=== PATIENT | male | born 1950 | race Caucasian/White ===

== ENCOUNTER 2017-01-20 04:06 | Emergency (ER) | payer MEDICARE, BC ==
[2017-01-20 04:30] VITALS: BP 138/53
--- NOTE | 2017-01-20 07:43 | CR ---
DATE OF SERVICE: 01/20/17 CLINICAL DATA: SOB - GERD SYMPTOMS. AP PORTABLE CHEST: Comparison is made to a prior exam dated 11/03/15. The patient is status post median sternotomy. The heart size is within normal limits. It has mildly increased in size from the prior exam. There is pleural thickening in both hemithoraces. There are minimal atelectatic changes in both lower lungs. The lungs are otherwise clear. The pulmonary vasculature does appear slightly more prominent than on the prior exam suggesting mild pulmonary venous congestion. The exam is otherwise unchanged from the prior. [id number] [facility]
--- NOTE | 2017-01-21 00:04 | ER ---
HISTORY OF PRESENT ILLNESS: A 66-year-old male here with complaints of not feeling well. He has had a funny feeling in his chest. He states he just does not feel right. He denies it feeling like chest pain or pressure. He states it maybe somewhat like heartburn. The patient also noticed a bruise on the inside of his left upper arm during the day that he did not remember being caused by any form of injury. The patient states that he was told he needs to come in for evaluation because his blood pressure was elevated. He has a history of coronary artery disease. He has had a CABG in 2009. He feels short of breath some what on a daily basis and uses an albuterol inhaler for this. OBJECTIVE: GENERAL APPEARANCE: The patient is awake and alert and in no obvious distress. VITAL SIGNS: Reviewed. At this time, they are all normal. Blood pressure 138/53. HEENT: Ears, TMs are normal. Nares are patent. Oral mucous membranes are moist. Tonsils not enlarged or injected. Pharynx not inflamed. NECK: Supple. LUNGS: Clear. CARDIAC: Heart sounds distinct. No murmurs noted. Regular rate. ABDOMEN: Soft, protuberant, and nontender to palpation. Bowel sounds are present. LAB AND X-RAY: Chest x-ray shows mild increase in interstitial markings suggesting mild CHF. Lab work done included a CBC and CMP, these were unremarkable. Troponin is normal. PT and INR are also normal. DIAGNOSES: 1. Hypertension, currently well controlled. 2. Shortness of breath with some concern of mild CHF. TREATMENT PLAN: The patient is on Aldactone, we will increase this to 25 mg a day. The patient is to take his other medications as directed, and I want the patient to follow up next week with his primary care provider for a recheck. Follow up sooner of course hermelinda ALANIZ/MAREN /[id number]
== END 2017-01-20 06:07 | disposition home or self-care (01) ==
LOC: LB.ED 04:06
DX: I10 Essential (primary) hypertension (principal); R06.02 Shortness of breath; S40.022A Contusion of left upper arm, initial encounter; Z95.1 Presence of aortocoronary bypass graft; X58.XXXA Exposure to other specified factors, initial encounter
CPT/HCPCS: 36415; 71010; 80053; 84484; 85025; 85610; 93005; 99283; 99284-25

== ENCOUNTER 2018-02-09 09:09 | Day surgery (SDC) | payer MEDICARE, BC ==
[~2018-02-09 09:09] MED LIST: Metoclopramide 10 MG/2 ML SDV IV PRN; Sodium Chloride 0.9% 1,000 ML IV SCH; Sodium Chloride 0.9% 10 ML Syringe FLUSH PRN
[2018-02-09 13:54] VITALS: BP 142/65
--- NOTE | 2018-02-09 18:21 | OR ---
DATE OF OPERATION: 02/09/2018 PREOPERATIVE DIAGNOSIS: Positive FIT test. POSTOPERATIVE DIAGNOSIS: 1. Sigmoid polyp. 2. Rectosigmoid polyp. 3. Otherwise normal colonoscopy. OPERATION: Screening colonoscopy with a biopsy with cold biopsy polypectomy. COMPLICATIONS: None. DRAINS: None. SPECIMENS: 1. Sigmoid polyp. 2. Rectosigmoid polyp. ESTIMATED BLOOD LOSS: Minimal. ANESTHESIA: General propofol anesthesia. INDICATION: Mr. Keita is a 68-year-old gentleman who recently had a positive FIT test. He was then referred for screening colonoscopy. He is of average risk and has no gross symptoms. The above-mentioned procedure was explained. The risks, benefits, and complications were explained. The patient understood and agreed and he was brought to the operating room. DESCRIPTION OF PROCEDURE: The patient was brought to the operating room, placed in the left lateral decubitus position on the operating room table. Satisfactory general propofol anesthesia was administered. We began by performing a rectal examination which was within normal limits. I then placed the endoscope by finger introduction into the rectum and subsequently advanced to the level of the cecum. The cecum was identified by the appendiceal orifice, the cecal strap, and the ileocecal valve. The terminal ileum was intubated and this was normal. We then evaluated the mucosa on withdrawal. There were no significant abnormalities identified. No telangiectasias, no neoplastic growths, and no diverticula were identified. There was a small sessile less than 0.5 cm or less than 5 mm polyp in the sigmoid, which was easily resected by cold biopsy polypectomy completely and retrieved. There was also a small rectosigmoid polyp. Again, this was less than 5 mm and removed by cold biopsy polypectomy and retrieved completely. The remainder of the colon was within normal limits. Retroflexion was performed in the rectum which was within normal limits. We then decompressed the colon and subsequently removed the endoscope. The patient tolerated the procedure well. There were no complications. Instrument count was correct. The patient was awoken in the OR and taken to the PACU for recovery. Recommend followup colonoscopy depending on path results. REFUGIO /[id number]
== END 2018-02-09 12:05 | disposition home or self-care (01) ==
LOC: LB.SDS 09:09
PROVIDERS: ATTEND Surgery
DX: K63.5 Polyp of colon (principal); J44.9 Chronic obstructive pulmonary disease, unspecified; M19.90 Unspecified osteoarthritis, unspecified site; I25.10 Atherosclerotic heart disease of native coronary artery without angina pectoris; Z79.899 Other long term (current) drug therapy
CPT/HCPCS: 88305

== ENCOUNTER 2018-04-03 02:04 | Emergency (ER) | payer MEDICARE, BC ==
[2018-04-03] MEDS: Ketorolac 60 MG/2 ML SDV IM ONE (02:40)
--- NOTE | 2018-04-03 04:28 | ER ---
DATE OF SERVICE: 04/03/2018 HISTORY OF PRESENT ILLNESS: A 68-year-old male here with complaints of falling at work. 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 He tripped and fell landing on the left side of the chest wall. He had a phone attached to his shirt over the breast area and this is the area that he fell on. He states that he is having pain on the left chest wall basically behind the breast. The patient denies any shortness of breath. He states it hurts when he tries to take a deep breath. He denies any other injuries. OBJECTIVE: GENERAL APPEARANCE: The patient is awake and alert. No obvious distress at rest. VITAL SIGNS: Reviewed as listed. CHEST: Examining the anterior chest wall reveals a well-healed midline incision over the sternum from a previous CABG surgery 9 or 10 years ago. There is no bruising involving the left breast area. There is some discomfort with palpation below and underneath the breast, but there is minimal guarding. The patient is able to take about 50% of a deep breath before he notices pain. Lung sounds are present throughout the lung lux. LAB AND X-RAY: PA chest with left rib films were obtained. There appeared to be a slight abnormality involving one of the lower ribs along the sternal border, but the patient is not having pain in this area with palpation. I do not see any other obvious fractures. DIAGNOSIS: Contusion injury to chest wall. This is a work comp injury. TREATMENT PLAN: The patient was given Toradol 60 mg here in the emergency room. He is to use ibuprofen alternating with Tylenol for pain control. He states that he has oxycodone that he takes occasionally for arthritic pain; I advised the patient to use those very cautiously. He is to apply ice frequently for the next day or two. As far as work, it would be very light duty as tolerated. The patient is going to see if he can get some time off work. I advised the patient to talk to his supervisor sterile processing about this. Followup is otherwise p.r.n. KATTY/MAREN /[id number] STEPHY
--- NOTE | 2018-04-03 11:10 | CR ---
DATE OF SERVICE: 04/03/18 CLINICAL DATA: fall with chest wall pain PA CHEST AND LEFT RIBS: All the views are under-penetrated, most likely related to the patient's size. The patient is status post median sternotomy. The heart is enlarged. There is pleural thickening in both hemithoraces. The lungs are otherwise clear. No pneumothorax. No displaced rib fractures. [id number] [facility]
== END 2018-04-03 03:25 | disposition home or self-care (01) ==
LOC: LB.ED 02:04
DX: S20.212A Contusion of left front wall of thorax, initial encounter (principal); W01.0XXA Fall on same level from slipping, tripping and stumbling without subsequent striking against object, initial encounter; Y99.0 Civilian activity done for income or pay
CPT/HCPCS: 71101; 96372; 99284; J1885; 99283

== ENCOUNTER 2019-08-04 15:26 | Observation (INO) | payer MEDICARE ==
--- NOTE | 2019-08-04 16:23 | EDM.PDOC ---
ED HPI GENERAL MEDICAL PROBLEM - General Chief Complaint: General Stated Complaint: diarrhea, weakness Time Seen by Provider: 08/04/19 15:50 Source of Information: Reports: Patient, Family History Limitations: Reports: No Limitations - History of Present Illness INITIAL COMMENTS - FREE TEXT/NARRATIVE: According to patient he has been having diarrhea since yesterday . stool have been frequent and watery. No blood or mucus in the stool. Bowel movements are asso with cramping. Has had 4 episodes today. Also since today afternoon, he has been having fever with chills. No nausea or vomiting. According to spouse, they had home made steak and corn on Monday evening. No abdominal bloating. No chest pain or shortness of breath. Does have mid back pain, which is chronic. Onset Date: 08/03/19 Onset Time: 12:00 Quality: Reports: Ache Severity: Moderate Improves with: Reports: None Worsens with: Reports: None Associated Symptoms: Reports: Cough, Fever/Chills, Nausea/Vomiting, Weakness. Denies: Confusion, Chest Pain, Headaches, Rash, Seizure, Shortness of Breath, Syncope Treatments JUNIOR COPYWRITER: Reports: NSAIDS, Other (see below) Other Treatments JUNIOR COPYWRITER: aleve 3 tabs at 1200 Lower Back Pain Score (Numeric/FACES): 5 - Related Data Allergies Allergy/AdvReac Type Severity Reaction Status Date / Time No Known Allergies Allergy Verified 04/03/18 02:42 Home Meds: Home Meds Sildenafil Citrate [Viagra] 1 tab PO ASDIRECTED PRN 07/09/15 [History] atorvaSTATin [Lipitor] 80 mg PO BEDTIME tablet 09/30/15 [Rx] Aspirin [Ecotrin EC] 81 mg PO QPM 01/20/17 [History] Carvedilol 12.5 mg PO BID 01/20/17 [History] Losartan Potassium 12.5 mg PO DAILY 01/20/17 [History] Spironolactone [Aldactone] 12.5 mg PO DAILY 01/20/17 [History] traZODone 150 mg PO QPM 01/20/17 [History] Albuterol [Ventolin HFA] 1 puff INH Q4H PRN 02/09/18 [History] Magnesium 250 mg PO DAILY 02/09/18 [History] Multivit-Minerals/FA/Lycopene [Men's Daily Formula Tablet] 1 tab PO DAILY [History] Omeprazole [priLOSEC OTC] 20 mg PO DAILY 02/09/18 [History] Potassium 99 mg PO DAILY 02/09/18 [History] diphenhydrAMINE HCl [Diphenhydramine HCl] 100 mg PO BEDTIME 02/09/18 [History] Acetaminophen [Tylenol Arthritis] 650 mg PO BID 08/04/19 [History] Fluticasone/Umeclidin/Vilanter [Trelegy Ellipta 100-62.5-25] 1 each INH DAILY [History] metFORMIN [Glucophage] 500 mg PO DAILY 08/04/19 [History] oxyCODONE [Oxycodone HCl] 10 mg PO Q8HR 08/04/19 [History] Past Medical History HEENT History: Reports: Hard of Hearing Cardiovascular History: Reports: Bypass, High Cholesterol, Hypertension, SOB on Exertion Respiratory History: Reports: Asthma, COPD, Pneumonia, Recurrent, SOB Gastrointestinal History: Reports: GERD Genitourinary History: Reports: Renal Calculus, Renal Disease Musculoskeletal History: Reports: Back Pain, Chronic, Fracture, Osteoarthritis Other Musculoskeletal History: R Leg pain, 2 broken wrists Neurological History: Reports: Other (See Below) Other Neuro History: numb in R forearm into 3-4-5 fingers since back jun Psychiatric History: Reports: None Endocrine/Metabolic History: Reports: None, Diabetes, Type II, Other (See Below) Other Endocrine/Metabolic History: pre-diabetic Hematologic History: Reports: None Immunologic History: Reports: None Oncologic (Cancer) History: Reports: None Dermatologic History: Reports: Cellulitis - Infectious Disease History Infectious Disease History: Reports: Chicken Pox - Past Surgical History Cardiovascular Surgical History: Reports: Coronary Artery Bypass, Coronary Artery Stent GI Surgical History: Reports: Colonoscopy Other GI Surgeries/Procedures: Reason for colonoscopy:Blood in stool-02/09/18 Other Endocrine Surgeries/Procedures: patient feels possibly a mild form of Diabetes type 2 Neurological Surgical History: Reports: Lumbar Spine, Spinal Fusion Social & Family History - Family History Family Medical History: Noncontributory Endocrine/Metabolic: Reports: IDDM Oncologic: Reports: Breast - Caffeine Use Caffeine Use: Reports: Coffee - Living Situation & Occupation Living situation: Reports: Occupation: Employed ED ROS GENERAL - Review of Systems Review Of Systems: See Below Constitutional: Reports: Fever, Chills, Weakness HEENT: Denies: Rhinitis, Throat Pain Respiratory: Reports: Cough. Denies: Shortness of Breath, Wheezing, Pleuritic Chest Pain, Sputum Cardiovascular: Denies: Chest Pain, Lightheadedness GI/Abdominal: Reports: Abdominal Pain, Diarrhea, Flatus, Nausea, Vomiting. Denies: Constipation : Denies: Dysuria, Frequency Musculoskeletal: Denies: Joint Pain, Joint Swelling Skin: Denies: Bruising, Pruritis, Rash, Wound Neurological: Denies: Confusion, Dizziness, Headache, Numbness, Tingling ED EXAM, GENERAL - Physical Exam Exam: See Below Exam Limited By: No Limitations General Appearance: Alert, WD/WN, Mild Distress, Other (pt apprently is vomiting bilous copious vomitus, first episode) Eye Exam: Bilateral Eye: EOMI, PERRL Ears: Normal External Exam, Normal Canal, Hearing Grossly Normal, Normal TMs Ear Exam: Bilateral Ear: Auricle Normal, Canal Normal, TM normal Nose: Normal Inspection, Normal Mucosa, No Blood Throat/Mouth: Normal Inspection, Normal Lips, Normal Teeth, Normal Gums, Normal Oropharynx, Normal Voice, No Airway Compromise Head: Atraumatic, Normocephalic Neck: Normal Inspection, Supple, Non-Tender, Full Range of Motion Respiratory/Chest: No Respiratory Distress, Lungs Clear, Normal Breath Sounds, No Accessory Muscle Use, Chest Non-Tender Cardiovascular: Normal Peripheral Pulses, Tachycardia Peripheral Pulses: 2+: Carotid (L), Carotid (R), Brachial (L), Brachial (R) GI/Abdominal: Soft, No Organomegaly, No Abnormal Bruit, No Mass, Distended, Abnormal Bowel Sounds (hypoactive bowel sounds) Back Exam: Normal Inspection, Full Range of Motion Extremities: Normal Inspection, Normal Range of Motion, Non-Tender, Normal Capillary Refill, No Pedal Edema Neurological: Alert, Oriented, CN II-XII Intact, Normal Cognition, Normal Gait, Normal Reflexes, No Motor/Sensory Deficits Course - Vital Signs Text/Narrative:: 79 year old male with COPD and Diabetes, presents to emergency room with C/o diarrhea since yesterday.He has started to have low grade fever since today afternoon. Apparently he has his first episode of bilious vomitus in the emergency room. Last time he has eaten anything was yesterday afternoon. He has hypoactive bowel sounds presently. He might be developing paralytic ileus. LAb work ordered. CT abdomen and pelvis ordered. Also EKG and Chest Xray ordered as he has History of CAD and COPD. Pt's CBC shows white count oa 14.9. His CMP shows normal liver functions. Normal electrolytes.Potassium is 3.9 Creat is normal at 1.3 and Bun of 15. His GFR is 55. His lipase is negative.His EKG shows sinus tachycardia. Chest Xray appears normal. His Abdominal Xray upright shows decreased air pattern.. His whit4 count is up appears more like a inflammatory reaction. Also his lactic acid is mildly elevated. This could be lactic acidosis mild from hsi metformin, with early dehydration. Hydration should improve both these values. Pt and family reassured that he has acute gastroenteritis with normal renal and liver functions. He is just getting into dehydration, with possible early paralytic ileus, which is the cause of his bilious vomitus. Pt has received zofran 4mg IV. Plan is to admit patient for observation. Have him started on 500cc/hr bolus time 2 of NS, will be followed by NS with 20meqKCL at 125cc/hr. Zofran 4mg IV every 8 hrs as needed for nausea. Will keep him only on few ice chips orally. CBC and BMP in Am. Replenishment of potassium should improve his symptoms. Last Recorded V/S: Last Vital Signs Temp 100.7 F H 08/04/19 15:55 Pulse 126 H 08/04/19 15:55 Resp 24 H 08/04/19 15:55 BP 151/85 H 08/04/19 15:55 Pulse Ox 86 L 08/04/19 15:55 - Orders/Labs/Meds Orders: Active Orders 24 hr Category Date Time Status EKG Documentation Completion [RC] ASDIRECTED Care 08/04/19 16:22 Active Abdomen 1V Upright [CR] Stat Exams 08/04/19 16:47 Ordered Abdomen Pelvis wo Cont [CT] Stat Exams 08/04/19 16:17 Stop Req Chest 1V Frontal [CR] Stat Exams 08/04/19 16:25 Ordered Sodium Chloride 0.9% [Normal Saline] 500 ml Med 08/04/19 16:29 Active IV .BOLUS Sodium Chloride 0.9% [Saline Flush] Med 08/04/19 16:28 Active 10 ml FLUSH ASDIRECTED PRN Peripheral IV Insertion Adult [OM.PC] Routine Oth 08/04/19 16:28 Ordered Medication Orders Sodium Chloride (Normal Saline) 500 mls @ 500 mls/hr IV .BOLUS ONE Stop: 08/04/19 17:28 Sodium Chloride (Saline Flush) 10 ml FLUSH ASDIRECTED PRN PRN Reason: Keep Vein Open Labs: Laboratory Tests 08/04/19 08/04/19 08/04/19 Range/Units 16:10 16:10 16:10 WBC 14.9 H D (4.0-11.0) K/uL RBC 4.91 (4.50-6.50) M/uL Hgb 14.7 (13.0-18.0) g/dL Hct 44.1 (40.0-54.0) % MCV 90 (76-96) fL MCH 29.9 (27.0-32.0) pg MCHC 33.3 (31.0-35.0) g/dL RDW 14.1 (11.0-16.0) % Plt Count 161 (150-400) K/uL MPV 9.5 (6.0-10.0) fL Neut % (Auto) 93.0 H (45.0-70.0) % Lymph % (Auto) 3.6 L (20.0-40.0) % Weston % (Auto) 2.7 L (3.0-10.0) % Eos % (Auto) 0.6 L (1.0-5.0) % Baso % (Auto) 0.1 (0.0-0.5) % Neut # (Auto) 13.87 H (2.00-7.50) K/uL Lymph # (Auto) 0.54 L (1.50-4.00) K/uL Weston # (Auto) 0.41 (0.20-0.80) K/uL Eos # (Auto) 0.09 (0.04-0.40) K/uL Baso # (Auto) 0.02 (0.02-0.10) K/uL Sodium 141 (136-145) mmol/L Potassium 3.9 (3.5-5.1) mmol/L Chloride 106 (98-107) mmol/L Carbon Dioxide 23.7 (21.0-32.0) mmol/L Anion Gap 15.2 H (5.0-15.0) mmol/L BUN 15 D (8-26) mg/dL Creatinine 1.30 (0.70-1.30) mg/dL Est Cr Clr Drug Dosing 54.59 mL/min Estimated GFR (MDRD) 55 L (>60) MLS/MIN BUN/Creatinine Ratio 11.5 (6-25) Glucose 280 H D (74-100) mg/dL Lactic Acid (0.90-1.70) mmol/L Calcium 8.4 L (8.5-10.1) mg/dL Total Bilirubin 0.8 D (0.0-1.0) mg/dL AST 20 (15-37) U/L ALT 25 (12-78) U/L Alkaline Phosphatase 73 (46-116) U/L Total Protein 6.5 (6.4-8.2) g/dL Albumin 3.3 L (3.4-5.0) g/dL Globulin 3.2 (2.2-4.2) g/dL Albumin/Globulin Ratio 1.0 (0.8-2.0) Lipase 201 (73-393) U/L // Range/Units 16:10 WBC (4.0-11.0) K/uL RBC (4.50-6.50) M/uL Hgb (13.0-18.0) g/dL Hct (40.0-54.0) % MCV (76-96) fL MCH (27.0-32.0) pg MCHC (31.0-35.0) g/dL RDW (11.0-16.0) % Plt Count (150-400) K/uL MPV (6.0-10.0) fL Neut % (Auto) (45.0-70.0) % Lymph % (Auto) (20.0-40.0) % Weston % (Auto) (3.0-10.0) % Eos % (Auto) (1.0-5.0) % Baso % (Auto) (0.0-0.5) % Neut # (Auto) (2.00-7.50) K/uL Lymph # (Auto) (1.50-4.00) K/uL Weston # (Auto) (0.20-0.80) K/uL Eos # (Auto) (0.04-0.40) K/uL Baso # (Auto) (0.02-0.10) K/uL Sodium (136-145) mmol/L Potassium (3.5-5.1) mmol/L Chloride (98-107) mmol/L Carbon Dioxide (21.0-32.0) mmol/L Anion Gap (5.0-15.0) mmol/L BUN (8-26) mg/dL Creatinine (0.70-1.30) mg/dL Est Cr Clr Drug Dosing mL/min Estimated GFR (MDRD) (>60) MLS/MIN BUN/Creatinine Ratio (6-25) Glucose (74-100) mg/dL Lactic Acid 2.22 H (0.90-1.70) mmol/L Calcium (8.5-10.1) mg/dL Total Bilirubin (0.0-1.0) mg/dL AST (15-37) U/L ALT (12-78) U/L Alkaline Phosphatase (46-116) U/L Total Protein (6.4-8.2) g/dL Albumin (3.4-5.0) g/dL Globulin (2.2-4.2) g/dL Albumin/Globulin Ratio (0.8-2.0) Lipase (73-393) U/L Meds: Medications Generic Name Dose Route Start Last Admin Trade Name Freq PRN Reason Stop Dose Admin Sodium Chloride 500 mls @ 500 mls/hr 08/04/19 16:29 Normal Saline IV 08/04/19 17:28 .BOLUS ONE Sodium Chloride 10 ml 08/04/19 16:28 Saline Flush FLUSH ASDIRECTED PRN Keep Vein Open Discontinued Medications Generic Name Dose Route Start Last Admin Trade Name Freq PRN Reason Stop Dose Admin Ondansetron HCl 4 mg 08/04/19 16:28 Zofran IVPUSH 08/04/19 16:29 ONETIME ONE Departure - Departure Time of Disposition: 17:00 Disposition: Refer to Observation Condition: Fair Clinical Impression: Acute gastroenteritis - Discharge Information *PRESCRIPTION DRUG MONITORING PROGRAM REVIEWED*: Not Applicable *COPY OF PRESCRIPTION DRUG MONITORING REPORT IN PATIENT ASIYA: Not Applicable Forms: ED Department Discharge - Problem List & Annotations (1) Acute gastroenteritis SNOMED Code(s): 32773536 Code(s): K52.9 - NONINFECTIVE GASTROENTERITIS AND COLITIS, UNSPECIFIED Status: Acute - Problem List Review Problem List Initiated/Reviewed/Updated: Yes - My Orders Last 24 Hours: My Active Orders 08/04/19 16:17 Abdomen Pelvis wo Cont [CT] Stat 08/04/19 16:22 EKG Documentation Completion [RC] ASDIRECTED 08/04/19 16:25 Chest 1V Frontal [CR] Stat 08/04/19 16:28 Sodium Chloride 0.9% [Saline Flush] 10 ml FLUSH ASDIRECTED PRN Peripheral IV Insertion Adult [OM.PC] Routine 08/04/19 16:29 Sodium Chloride 0.9% [Normal Saline] 500 ml IV .BOLUS 08/04/19 16:47 Abdomen 1V Upright [CR] Stat - Assessment/Plan Admission H&P: Please use this note as an admission H&P Last 24 Hours: My Active Orders 08/04/19 16:17 Abdomen Pelvis wo Cont [CT] Stat 08/04/19 16:22 EKG Documentation Completion [RC] ASDIRECTED 08/04/19 16:25 Chest 1V Frontal [CR] Stat 08/04/19 16:28 Sodium Chloride 0.9% [Saline Flush] 10 ml FLUSH ASDIRECTED PRN Peripheral IV Insertion Adult [OM.PC] Routine 08/04/19 16:29 Sodium Chloride 0.9% [Normal Saline] 500 ml IV .BOLUS 08/04/19 16:47 Abdomen 1V Upright [CR] Stat Assessment:: Acute gastroenteritis Plan: 79 year old male with COPD and Diabetes, presents to emergency room with C/o diarrhea since yesterday.He has started to have low grade fever since today afternoon. Apparently he has his first episode of bilious vomitus in the emergency room. Last time he has eaten anything was yesterday afternoon. He has hypoactive bowel sounds presently. He might be developing paralytic ileus. LAb work ordered. CT abdomen and pelvis ordered. Also EKG and Chest Xray ordered as he has History of CAD and COPD. Pt's CBC shows white count oa 14.9. His CMP shows normal liver functions. Normal electrolytes.Potassium is 3.9 Creat is normal at 1.3 and Bun of 15. His GFR is 55. His lipase is negative.His EKG shows sinus tachycardia. Chest Xray appears normal. His Abdominal Xray upright shows decreased air pattern.. His whit4 count is up appears more like a inflammatory reaction. Also his lactic acid is mildly elevated. This could be lactic acidosis mild from hsi metformin, with early dehydration. Hydration should improve both these values. Pt and family reassured that he has acute gastroenteritis with normal renal and liver functions. He is just getting into dehydration, with possible early paralytic ileus, which is the cause of his bilious vomitus. Pt has received zofran 4mg IV. Plan is to admit patient for observation. Have him started on 500cc/hr bolus time 2 of NS, will be followed by NS with 20meqKCL at 125cc/hr. Zofran 4mg IV every 8 hrs as needed for nausea. Will keep him only on few ice chips orally. CBC and BMP in Am. Replenishment of potassium should improve his symptoms.
[2019-08-04] MEDS ORDERED: Sodium Chloride 0.9% 10 ML Syringe FLUSH PRN (16:28)
[2019-08-04] MEDS ORDERED: Ondansetron 4 MG/2 ML SDV IVPUSH ONE (16:28)
[2019-08-04] MEDS ORDERED: Sodium Chloride 0.9% 500 ML IV ONE (16:29)
[2019-08-04] MEDS: Ondansetron 4 MG/2 ML SDV IVPUSH SCH (16:45)
[2019-08-04] MEDS ORDERED: NS + KCl 20mEq/L 1,000 ML IV SCH (17:15)
--- NOTE | 2019-08-04 19:16 | CR ---
DATE OF SERVICE: 08/04/2019 CLINICAL DATA: Cough chronic. AP CHEST: Comparison is made to a prior exam dated 01/30/2019. There is breathing motion artifact. The patient has taken a very poor inspiration. The cardiac pacer and pacer wires remain unchanged in position. The patient is status post median sternotomy. The heart is enlarged. There is pleural thickening in both hemithoraces. The lungs appear clear. No pneumothorax. No pleural effusions. [id number] MTDD
--- NOTE | 2019-08-04 19:22 | CR ---
DATE OF SERVICE: 08/04/2019 CLINICAL DATA: R/O paralytic ileus. UPRIGHT ABDOMEN: No evidence of obstruction or ileus. No free air. The patient is status post internal fixation of L5 and S1. [id number] MTDD
[2019-08-04] MEDS ORDERED: Ketorolac 30 MG/ML SDV IVPUSH ONE (19:26)
[2019-08-04] MEDS ORDERED: diphenhydrAMINE 50 MG/ML SDV IVPUSH ONE (23:23)
[2019-08-05] MEDS: Ondansetron 4 MG/2 ML SDV IVPUSH SCH ×3 (06:42→21:46)
[2019-08-05] MEDS: Sodium Chloride 0.9% 1,000 ML IV SCH ×2 (08:35→19:09)
[2019-08-05] MEDS ORDERED: [UNRECOGNIZED DRUG - OTHER] PO PRN (09:05)
--- NOTE | 2019-08-05 14:09 | PCM.PN ---
- General Info Date of Service: 08/05/19 Subjective Update: This is a 69yo M with continued headache that started last night. He feels very thirsty still. He denies any pain other than his headache. He does feel tired and weak. No fever or chills, no chest pain or shortness of breath. - Review of Systems General: Reports: Weakness HEENT: Reports: No Symptoms Pulmonary: Reports: No Symptoms Cardiovascular: Reports: No Symptoms Gastrointestinal: Reports: Decreased Appetite, Diarrhea Genitourinary: Reports: No Symptoms Musculoskeletal: Reports: No Symptoms Skin: Reports: No Symptoms Neurological: Reports: Weakness - Patient Data Vitals - Most Recent: Last Vital Signs Temp 37.5 C 08/05/19 08:00 Pulse 79 08/05/19 08:00 Resp 18 08/05/19 05:00 BP 119/55 L 08/05/19 08:00 Pulse Ox 98 08/05/19 08:00 Weight - Most Recent: 262.4 kg I&O - Last 24 Hours: Intake & Output 08/04/19 08/05/19 08/05/19 22:59 06:59 14:59 Intake Total 1000 Output Total 50 Balance 950 Lab Results Last 24 Hours: Laboratory Results - last 24 hr 08/04/19 08/04/19 08/04/19 Range/Units 16:10 16:10 16:10 WBC 14.9 H D (4.0-11.0) K/uL RBC 4.91 (4.50-6.50) M/uL Hgb 14.7 (13.0-18.0) g/dL Hct 44.1 (40.0-54.0) % MCV 90 (76-96) fL MCH 29.9 (27.0-32.0) pg MCHC 33.3 (31.0-35.0) g/dL RDW 14.1 (11.0-16.0) % Plt Count 161 (150-400) K/uL MPV 9.5 (6.0-10.0) fL Neut % (Auto) 93.0 H (45.0-70.0) % Lymph % (Auto) 3.6 L (20.0-40.0) % [place] % (Auto) 2.7 L (3.0-10.0) % Eos % (Auto) 0.6 L (1.0-5.0) % Baso % (Auto) 0.1 (0.0-0.5) % Neut # (Auto) 13.87 H (2.00-7.50) K/uL Lymph # (Auto) 0.54 L (1.50-4.00) K/uL [place] # (Auto) 0.41 (0.20-0.80) K/uL Eos # (Auto) 0.09 (0.04-0.40) K/uL Baso # (Auto) 0.02 (0.02-0.10) K/uL Sodium 141 (136-145) mmol/L Potassium 3.9 (3.5-5.1) mmol/L Chloride 106 (98-107) mmol/L Carbon Dioxide 23.7 (21.0-32.0) mmol/L Anion Gap 15.2 H (5.0-15.0) mmol/L BUN 15 D (8-26) mg/dL Creatinine 1.30 (0.70-1.30) mg/dL Est Cr Clr Drug Dosing 54.59 mL/min Estimated GFR (MDRD) 55 L (>60) MLS/MIN BUN/Creatinine Ratio 11.5 (6-25) Glucose 280 H D (74-100) mg/dL POC Glucose (74-110) mg/dL Lactic Acid (0.90-1.70) mmol/L Calcium 8.4 L (8.5-10.1) mg/dL Total Bilirubin 0.8 D (0.0-1.0) mg/dL AST 20 (15-37) U/L ALT 25 (12-78) U/L Alkaline Phosphatase 73 (46-116) U/L Total Protein 6.5 (6.4-8.2) g/dL Albumin 3.3 L (3.4-5.0) g/dL Globulin 3.2 (2.2-4.2) g/dL Albumin/Globulin Ratio 1.0 (0.8-2.0) Lipase 201 (73-393) U/L 08/04/19 08/05/19 08/05/19 Range/Units 16:10 09:38 09:38 WBC 14.0 H (4.0-11.0) K/uL RBC 4.17 L (4.50-6.50) M/uL Hgb 12.5 L (13.0-18.0) g/dL Hct 38.0 L (40.0-54.0) % MCV 91 (76-96) fL MCH 30.0 (27.0-32.0) pg MCHC 32.9 (31.0-35.0) g/dL RDW 14.4 (11.0-16.0) % Plt Count 161 (150-400) K/uL MPV 9.5 (6.0-10.0) fL Neut % (Auto) 88.4 H (45.0-70.0) % Lymph % (Auto) 5.7 L (20.0-40.0) % [place] % (Auto) 5.6 (3.0-10.0) % Eos % (Auto) 0.1 L (1.0-5.0) % Baso % (Auto) 0.2 (0.0-0.5) % Neut # (Auto) 12.36 H (2.00-7.50) K/uL Lymph # (Auto) 0.79 L (1.50-4.00) K/uL [place] # (Auto) 0.78 (0.20-0.80) K/uL Eos # (Auto) 0.01 L (0.04-0.40) K/uL Baso # (Auto) 0.03 (0.02-0.10) K/uL Sodium 145 (136-145) mmol/L Potassium 3.9 (3.5-5.1) mmol/L Chloride 112 H (98-107) mmol/L Carbon Dioxide 23.2 (21.0-32.0) mmol/L Anion Gap 13.7 (5.0-15.0) mmol/L BUN 21 D (8-26) mg/dL Creatinine 1.41 H (0.70-1.30) mg/dL Est Cr Clr Drug Dosing 50.33 mL/min Estimated GFR (MDRD) 50 L (>60) MLS/MIN BUN/Creatinine Ratio 14.9 (6-25) Glucose 135 H D (74-100) mg/dL POC Glucose (74-110) mg/dL Lactic Acid 2.22 H (0.90-1.70) mmol/L Calcium 7.9 L (8.5-10.1) mg/dL Total Bilirubin (0.0-1.0) mg/dL AST (15-37) U/L ALT (12-78) U/L Alkaline Phosphatase (46-116) U/L Total Protein (6.4-8.2) g/dL Albumin (3.4-5.0) g/dL Globulin (2.2-4.2) g/dL Albumin/Globulin Ratio (0.8-2.0) Lipase (73-393) U/L 08/05/19 08/05/19 Range/Units 09:38 11:03 WBC (4.0-11.0) K/uL RBC (4.50-6.50) M/uL Hgb (13.0-18.0) g/dL Hct (40.0-54.0) % MCV (76-96) fL MCH (27.0-32.0) pg MCHC (31.0-35.0) g/dL RDW (11.0-16.0) % Plt Count (150-400) K/uL MPV (6.0-10.0) fL Neut % (Auto) (45.0-70.0) % Lymph % (Auto) (20.0-40.0) % [place] % (Auto) (3.0-10.0) % Eos % (Auto) (1.0-5.0) % Baso % (Auto) (0.0-0.5) % Neut # (Auto) (2.00-7.50) K/uL Lymph # (Auto) (1.50-4.00) K/uL [place] # (Auto) (0.20-0.80) K/uL Eos # (Auto) (0.04-0.40) K/uL Baso # (Auto) (0.02-0.10) K/uL Sodium (136-145) mmol/L Potassium (3.5-5.1) mmol/L Chloride (98-107) mmol/L Carbon Dioxide (21.0-32.0) mmol/L Anion Gap (5.0-15.0) mmol/L BUN (8-26) mg/dL Creatinine (0.70-1.30) mg/dL Est Cr Clr Drug Dosing mL/min Estimated GFR (MDRD) (>60) MLS/MIN BUN/Creatinine Ratio (6-25) Glucose (74-100) mg/dL POC Glucose 118 H (74-110) mg/dL Lactic Acid 1.12 (0.90-1.70) mmol/L Calcium (8.5-10.1) mg/dL Total Bilirubin (0.0-1.0) mg/dL AST (15-37) U/L ALT (12-78) U/L Alkaline Phosphatase (46-116) U/L Total Protein (6.4-8.2) g/dL Albumin (3.4-5.0) g/dL Globulin (2.2-4.2) g/dL Albumin/Globulin Ratio (0.8-2.0) Lipase (73-393) U/L Med Orders - Current: Current Medications Sodium Chloride (Normal Saline) 1,000 mls @ 125 mls/hr IV ASDIRECTED VIVEK Last Admin: 08/05/19 08:35 Dose: 125 mls/hr Extra Strength Headache ReliefOwn Med 2 each PO Q4H PRN PRN Reason: Headache Last Admin: 08/05/19 09:12 Dose: 2 each Ondansetron HCl (Zofran) 4 mg IVPUSH Q8H [facility] Last Admin: 08/05/19 09:56 Dose: 4 mg Sodium Chloride (Saline Flush) 10 ml FLUSH ASDIRECTED PRN PRN Reason: Keep Vein Open Discontinued Medications Diphenhydramine HCl (Benadryl) 25 mg IVPUSH ONETIME ONE Stop: 08/04/19 23:24 Last Admin: 08/04/19 23:41 Dose: 25 mg Sodium Chloride (Normal Saline) 500 mls @ 500 mls/hr IV .BOLUS ONE Stop: 08/04/19 17:28 Last Admin: 08/04/19 17:30 Dose: 500 mls/hr Potassium Chloride/Sodium Chloride (Normal Saline With 20 Meq Kcl) 1,000 mls @ 125 mls/hr IV ASDIRECTED VIVEK Last Admin: 08/04/19 19:21 Dose: 125 mls/hr Ketorolac Tromethamine (Toradol) 30 mg IVPUSH ONETIME ONE Stop: 08/04/19 19:27 Last Admin: 08/04/19 19:51 Dose: 30 mg Ondansetron HCl (Zofran) 4 mg IVPUSH ONETIME ONE Stop: 08/04/19 16:29 Last Admin: 08/04/19 16:45 Dose: 4 mg - Exam General: Alert, Oriented, Cooperative HEENT: Pupils Equal, Pupils Reactive, EOMI Neck: Supple Lungs: Clear to Auscultation, Normal Respiratory Effort Cardiovascular: Regular Rate, Regular Rhythm GI/Abdominal Exam: Normal Bowel Sounds Extremities: Normal Inspection Peripheral Pulses: 2+: Dorsalis Pedis (L), Dorsalis Pedis (R) Skin: Warm, Dry, Intact - Problem List & Annotations (1) Acute gastroenteritis SNOMED Code(s): 75906627 Code(s): K52.9 - NONINFECTIVE GASTROENTERITIS AND COLITIS, UNSPECIFIED Status: Acute Priority: High Current Visit: Yes - Problem List Review Problem List Initiated/Reviewed/Updated: Yes - My Orders Last 24 Hours: My Active Orders 08/05/19 09:00 Sodium Chloride 0.9% [Normal Saline] 1,000 ml IV ASDIRECTED 08/05/19 09:05 Non-Formulary Medication [NF Drug] 2 each PO Q4H PRN - Plan Plan:: Counseled on the need for continued hydration. Patient will be monitored and f/ u in am for labs,weakness, hydration, and headache.
[2019-08-05] MEDS ORDERED: diphenhydrAMINE 25 MG Cap PO ONE (19:47)
[2019-08-05] MEDS ORDERED: Ondansetron 4 MG Tab.DIS PO PRN (19:49)
[2019-08-05] MEDS ORDERED: diphenhydrAMINE 25 MG Cap ONE (22:31)
--- NOTE | 2019-08-06 11:58 | PCM.DCSUM1 ---
Discharge Summary - Discharge Data Discharge Date: 08/06/19 Discharge Disposition: Home, Self-Care 01 Condition: Good - Referral to Home Health Primary Care Physician: PCP None - Discharge Diagnosis/Problem(s) (1) Acute gastroenteritis SNOMED Code(s): 03129940 ICD Code: K52.9 - NONINFECTIVE GASTROENTERITIS AND COLITIS, UNSPECIFIED Status: Acute Priority: High - Patient Instructions Diet: GI Soft/Low Residue/Low Fiber Activity: As Tolerated, Rest and Relax Today - Discharge Plan *PRESCRIPTION DRUG MONITORING PROGRAM REVIEWED*: Not Applicable *COPY OF PRESCRIPTION DRUG MONITORING REPORT IN PATIENT ASIYA: Not Applicable Home Medications: Home Meds Sildenafil Citrate [Viagra] 1 tab PO ASDIRECTED PRN 07/09/15 [History] atorvaSTATin [Lipitor] 80 mg PO BEDTIME tablet 09/30/15 [Rx] Aspirin [Ecotrin EC] 81 mg PO QPM 01/20/17 [History] Carvedilol 12.5 mg PO BID 01/20/17 [History] Losartan Potassium 12.5 mg PO DAILY 01/20/17 [History] Spironolactone [Aldactone] 12.5 mg PO DAILY 01/20/17 [History] traZODone 150 mg PO QPM 01/20/17 [History] Albuterol [Ventolin HFA] 1 puff INH Q4H PRN 02/09/18 [History] Magnesium 250 mg PO DAILY 02/09/18 [History] Multivit-Minerals/FA/Lycopene [Men's Daily Formula Tablet] 1 tab PO DAILY [History] Omeprazole [priLOSEC OTC] 20 mg PO DAILY 02/09/18 [History] Potassium 99 mg PO DAILY 02/09/18 [History] diphenhydrAMINE HCl [Diphenhydramine HCl] 100 mg PO BEDTIME 02/09/18 [History] Acetaminophen [Tylenol Arthritis] 650 mg PO BID 08/04/19 [History] Fluticasone/Umeclidin/Vilanter [Trelegy Ellipta 100-62.5-25] 1 each INH DAILY [History] metFORMIN [Glucophage] 500 mg PO DAILY 08/04/19 [History] oxyCODONE [Oxycodone HCl] 10 mg PO Q8HR 08/04/19 [History] Patient Handouts: Loperamide tablets or capsules, Dehydration, Adult, Easy-to- Read Forms: ED Department Discharge Referrals: PCP,None [Primary Care Provider] - - Discharge Summary/Plan Comment DC Time >30 min.: No Discharge Summary/Plan Comment: Counseled on rest from work for recovery. Return to work next week. Discussed supportive care and conservative management. Discussed close monitoring and f/u if symptoms persist. Discussed diarrhea. F/u as directed. - General Info Date of Service: 08/06/19 Subjective Update: Patient does feel better. He continues to have loose stools and diarrhea. Functional Status: Reports: Tolerating Diet, Ambulating - Review of Systems General: Reports: Weakness HEENT: Reports: No Symptoms Pulmonary: Reports: No Symptoms Cardiovascular: Reports: No Symptoms Gastrointestinal: Reports: Decreased Appetite, Diarrhea Genitourinary: Reports: No Symptoms Musculoskeletal: Reports: No Symptoms - Patient Data Vitals - Most Recent: Last Vital Signs Temp 37.0 C 08/06/19 05:00 Pulse 82 08/06/19 05:00 Resp 18 08/06/19 01:00 BP 141/67 H 08/06/19 05:00 Pulse Ox 96 08/05/19 21:00 Weight - Most Recent: 252.4 kg I&O - Last 24 hours: Intake & Output 08/05/19 08/06/19 08/06/19 22:59 06:59 14:59 Intake Total 550 Output Total 600 Balance -50 Lab Results - Last 24 hrs: Laboratory Results - last 24 hr 08/05/19 08/05/19 08/06/19 Range/Units 11:03 17:53 06:58 WBC (4.0-11.0) K/uL RBC (4.50-6.50) M/uL Hgb (13.0-18.0) g/dL Hct (40.0-54.0) % MCV (76-96) fL MCH (27.0-32.0) pg MCHC (31.0-35.0) g/dL RDW (11.0-16.0) % Plt Count (150-400) K/uL MPV (6.0-10.0) fL Neut % (Auto) (45.0-70.0) % Lymph % (Auto) (20.0-40.0) % [place] % (Auto) (3.0-10.0) % Eos % (Auto) (1.0-5.0) % Baso % (Auto) (0.0-0.5) % Neut # (Auto) (2.00-7.50) K/uL Lymph # (Auto) (1.50-4.00) K/uL [place] # (Auto) (0.20-0.80) K/uL Eos # (Auto) (0.04-0.40) K/uL Baso # (Auto) (0.02-0.10) K/uL Sodium (136-145) mmol/L Potassium (3.5-5.1) mmol/L Chloride (98-107) mmol/L Carbon Dioxide (21.0-32.0) mmol/L Anion Gap (5.0-15.0) mmol/L BUN (8-26) mg/dL Creatinine (0.70-1.30) mg/dL Est Cr Clr Drug Dosing mL/min Estimated GFR (MDRD) (>60) MLS/MIN BUN/Creatinine Ratio (6-25) Glucose (74-100) mg/dL POC Glucose 118 H 141 H 138 H (74-110) mg/dL Calcium (8.5-10.1) mg/dL 08/06/19 08/06/19 Range/Units 07:30 07:30 WBC 8.6 D (4.0-11.0) K/uL RBC 4.08 L (4.50-6.50) M/uL Hgb 12.4 L (13.0-18.0) g/dL Hct 37.7 L (40.0-54.0) % MCV 92 (76-96) fL MCH 30.4 (27.0-32.0) pg MCHC 32.9 (31.0-35.0) g/dL RDW 14.4 (11.0-16.0) % Plt Count 186 (150-400) K/uL MPV 10.2 H (6.0-10.0) fL Neut % (Auto) 81.2 H (45.0-70.0) % Lymph % (Auto) 10.5 L (20.0-40.0) % [place] % (Auto) 6.5 (3.0-10.0) % Eos % (Auto) 1.5 (1.0-5.0) % Baso % (Auto) 0.3 (0.0-0.5) % Neut # (Auto) 6.98 (2.00-7.50) K/uL Lymph # (Auto) 0.90 L (1.50-4.00) K/uL [place] # (Auto) 0.56 (0.20-0.80) K/uL Eos # (Auto) 0.13 (0.04-0.40) K/uL Baso # (Auto) 0.03 (0.02-0.10) K/uL Sodium 147 H (136-145) mmol/L Potassium 4.0 (3.5-5.1) mmol/L Chloride 113 H (98-107) mmol/L Carbon Dioxide 22.4 (21.0-32.0) mmol/L Anion Gap 15.6 H (5.0-15.0) mmol/L BUN 17 (8-26) mg/dL Creatinine 1.28 (0.70-1.30) mg/dL Est Cr Clr Drug Dosing 53.70 mL/min Estimated GFR (MDRD) 56 L (>60) MLS/MIN BUN/Creatinine Ratio 13.3 (6-25) Glucose 121 H (74-100) mg/dL POC Glucose (74-110) mg/dL Calcium 8.4 L (8.5-10.1) mg/dL DANNY Results - Last 24 hrs: Microbiology 08/06/19 Unknown Clostridioides difficile (PCR) - Final Stool / Feces 08/04/19 17:09 MRSA Surveillance Culture - Final Nasal, Unspecified NO MRSA ISOLATED Med Orders - Current: Current Medications Sodium Chloride (Normal Saline) 1,000 mls @ 125 mls/hr IV ASDIRECTED VIVEK Last Admin: 08/05/19 19:09 Dose: 125 mls/hr Extra Strength Headache ReliefOwn Med 2 each PO Q4H PRN PRN Reason: Headache Last Admin: 08/05/19 09:12 Dose: 2 each Ondansetron HCl (Zofran Odt) 4 mg PO Q8H PRN PRN Reason: Nausea/Vomiting Sodium Chloride (Saline Flush) 10 ml FLUSH ASDIRECTED PRN PRN Reason: Keep Vein Open Discontinued Medications Diphenhydramine HCl (Benadryl) 25 mg IVPUSH ONETIME ONE Stop: 08/04/19 23:24 Last Admin: 08/04/19 23:41 Dose: 25 mg Diphenhydramine HCl (Benadryl) 25 mg PO ONETIME ONE Stop: 08/05/19 19:48 Last Admin: 08/05/19 22:35 Dose: 25 mg Diphenhydramine HCl (Benadryl) Confirm Administered Dose 25 mg .ROUTE .STK-MED ONE Stop: 08/05/19 22:32 Last Admin: 08/06/19 00:18 Dose: Not Given Sodium Chloride (Normal Saline) 500 mls @ 500 mls/hr IV .BOLUS ONE Stop: 08/04/19 17:28 Last Admin: 08/04/19 17:30 Dose: 500 mls/hr Potassium Chloride/Sodium Chloride (Normal Saline With 20 Meq Kcl) 1,000 mls @ 125 mls/hr IV ASDIRECTED VIVEK Last Admin: 08/04/19 19:21 Dose: 125 mls/hr Ketorolac Tromethamine (Toradol) 30 mg IVPUSH ONETIME ONE Stop: 08/04/19 19:27 Last Admin: 08/04/19 19:51 Dose: 30 mg Ondansetron HCl (Zofran) 4 mg IVPUSH ONETIME ONE Stop: 08/04/19 16:29 Last Admin: 08/04/19 16:45 Dose: 4 mg Ondansetron HCl (Zofran) 4 mg IVPUSH Q8H VIVEK Last Admin: 08/05/19 21:46 Dose: Not Given - Exam General: Reports: Alert, Oriented, Cooperative HEENT: Reports: Pupils Equal, Pupils Reactive, EOMI, Mucous Membr. Moist/[place] Neck: Reports: Supple Lungs: Reports: Clear to Auscultation, Normal Respiratory Effort Cardiovascular: Reports: Regular Rate, Regular Rhythm GI/Abdominal Exam: Normal Bowel Sounds, Soft, Non-Tender, No Organomegaly Back Exam: Reports: Normal Inspection Extremities: Normal Inspection
[2019-08-06 13:53] VITALS: BP 146/58; PULSE 78
== END 2019-08-06 14:00 | disposition home or self-care (01) ==
LOC: LB.ED 15:26 → LB.MS 17:09 → LB.ED 17:10
PROVIDERS: ADMIT Family Medicine; ATTEND Family Medicine
DX: K52.9 Noninfective gastroenteritis and colitis, unspecified (principal); K21.9 Gastro-esophageal reflux disease without esophagitis; E78.00 Pure hypercholesterolemia, unspecified; I10 Essential (primary) hypertension; J44.9 Chronic obstructive pulmonary disease, unspecified; M19.90 Unspecified osteoarthritis, unspecified site; E11.9 Type 2 diabetes mellitus without complications; Z79.899 Other long term (current) drug therapy; Z79.82 Long term (current) use of aspirin
CPT/HCPCS: 36415; 71045; 74018; 80048; 80053; 82962; 83605; 83690; 85025; 87493; 93005; 96361; 96374; 96375; 96376; 99285; A9270; G0378; J1200; J1885; J2405; J3480; J7030; J7040; 87070

== ENCOUNTER 2019-08-21 00:56 | Emergency (ER) | payer MEDICARE ==
[2019-08-21 01:45] VITALS: BP 150/69; PULSE 71
--- NOTE | 2019-08-21 02:32 | ER ---
HISTORY OF PRESENT ILLNESS: A 69-year-old male who comes in by ambulance with complaints of chest pressure, headaches, some dizziness and coughing symptoms. The patient states he also has had some problems with diarrhea lately and has been taking Imodium for it. The patient states that he feels better upon arriving to the ER. He is only having a mild headache now. There is no longer any dizziness or chest pressure. PAST MEDICAL HISTORY: Includes: 1. Coronary artery disease. 2. Gastroenteritis. 3. CHF. 4. Hypertension. OBJECTIVE: GENERAL APPEARANCE: The patient is awake and alert. He is pleasant and talkative. VITAL SIGNS: Reviewed. Initial blood pressure is 150/69. He is afebrile, pulse 71, O2 sats 98%, respirations 20. HEENT: Oral mucous membranes moist. Tonsils not enlarged or injected. Pharynx not inflamed. NECK: Supple. LUNG: Lungs are basically clear with mildly reduced air exchange throughout the lung lux. CARDIAC: Heart sounds distinct. S1, S2 present. Regular rate. ABDOMEN: Soft, protuberant, nontender to palpation. Bowel sounds are present, but hypoactive. SKIN: Warm and dry. LABORATORY AND X-RAY FINDINGS: Flat and upright abdominal films with PA chest were obtained. Chest x-ray looks normal. Abdominal films are negative for bowel obstruction or constipation. Labs include a CBC showing a white count slightly elevated at 12.1. Comprehensive metabolic panel shows his renal function is good. Troponin is negative. BNP is mildly elevated at 808. EKG is obtained and is unchanged from previous EKG dated in 01/2019. DIAGNOSIS: Congestive heart failure, mild exacerbation. TREATMENT PLAN: The patient will be started on Lasix 20 mg a day, he is to start taking it tomorrow morning. He is to take it easy for a day or 2. He states he still works 3 days a week. I advised the patient unless he feels good to stay home for at least a day and rest. He is on spironolactone as well, he is to continue taking that. I do want the patient to follow up with his primary care provider within the next few days for a recheck. KATTY/MODL /[id number]
--- NOTE | 2019-08-21 09:03 | CR ---
DATE OF SERVICE: 08/21/19 CLINICAL DATA: Chest and Abd pressure. PA CHEST: Comparison made to a prior exam dated 08/04/19. The patient is status post median sternotomy. There is a cardiac pacer overlying the left chest with the distal pacer wires in the region of the right atrium and right ventricle. The heart size is normal. There is pleural thickening in both hemithoraces. The lungs are otherwise clear. No pneumothorax. No pleural effusions. No evidence of acute intrathoracic disease. UPRIGHT ABDOMEN: No evidence of obstruction or ileus. No free air. There are surgical changes involving the lower lumbar spine and sacrum. [id number] MTDD
== END 2019-08-21 02:05 | disposition home or self-care (01) ==
LOC: LB.ED 00:56
DX: I50.9 Heart failure, unspecified (principal)
CPT/HCPCS: 36415; 74022; 80053; 83880; 84484; 85025; 93005; 99285-25

== ENCOUNTER 2019-09-22 19:11 | Emergency (ER) | payer MEDICARE ==
[2019-09-22] MEDS ORDERED: Azithromycin 250 MG Tab ONE (19:30)
[2019-09-22] MEDS ORDERED: Ondansetron 4 MG Tab.DIS PO PRN (19:31)
[2019-09-22 20:13] VITALS: BP 160/80; PULSE 66
[2019-09-22] MEDS ORDERED: cefTRIAXone 1 GM Vial IM ONE (20:45)
[2019-09-22] MEDS ORDERED: cefTRIAXone 1 GM Vial ONE (21:13)
--- NOTE | 2019-09-22 23:40 | ER ---
HPI: A 69-year-old male here with his with complaints of not feeling well. He states he has been hot and then cold. He has been chilled and has mild shortness of breath. It seems like it has been coming and going in episodes that started last , but has been gradually getting worse. The patient denies any high fevers. He has not had any problems with wheezing or GI symptoms. OBJECTIVE: GENERAL APPEARANCE: The patient is awake and alert. He has just very minimal shortness of breath. VITAL SIGNS: Reviewed. He is afebrile. Blood pressure 160/80, respirations 20, O2 sat is 98% on room air. HEENT: Ears: TMs are normal. Nares are patent. Oral mucous membranes moist. Tonsils not enlarged or injected. Pharynx, not inflamed. NECK: Supple. LUNGS: Exam reveals lungs are basically clear with mildly reduced air exchange throughout the lung lux. CARDIAC: Heart sounds distinct without murmurs. SKIN: Warm and dry. LAB AND X-RAY: Chest x-ray is obtained and it shows some haziness along the left lateral heart border, otherwise unremarkable. Labs include a CBC which has a normal white count, but a left shift. Comprehensive metabolic panel is unremarkable. BNP is 643. DIAGNOSIS: Pneumonia, early stage. TREATMENT PLAN: Rocephin 1 g will be given IM and we will send the patient home with a Z- [place]. He is to go home, rest, use his other medications. He does take spironolactone 12.5 mg a day. I advised him to double this for 3 days, and if his symptoms are not definitely improving within a couple of days, he is to come back in for a recheck, sooner of course as needed. CRS/MODL /[id number]
--- NOTE | 2019-09-23 08:27 | CR ---
Date of Service: 09/22/19 Clinical Data: SOB AP PORTABLE CHEST: Comparison is made to a prior exam dated 08/21/19. The cardiac pacer and pacer wires remains unchanged in position. The heart size is unchanged. The lungs remain clear. No pneumothorax. No pleural effusions. No evidence of acute intrathoracic disease. [id number] [facility]
== END 2019-09-22 21:25 | disposition home or self-care (01) ==
LOC: LB.ED 19:11
DX: J18.9 Pneumonia, unspecified organism (principal)
CPT/HCPCS: 36415; 71045; 80053; 82962; 83880; 85025; 87804; 87804-59; 96372; 99283; 99285-25; A9270-GY; J0696

== ENCOUNTER 2019-11-21 07:08 | Emergency (ER) | payer MEDICARE ==
[2019-11-21 07:26] VITALS: BP 156/84; PULSE 103
--- NOTE | 2019-11-21 07:51 | EDM.PDOC ---
ED HPI GENERAL MEDICAL PROBLEM - General Chief Complaint: General Stated Complaint: L HIP PAIN Time Seen by Provider: 11/21/19 07:30 Source of Information: Reports: Patient, RN History Limitations: Reports: No Limitations - History of Present Illness INITIAL COMMENTS - FREE TEXT/NARRATIVE: 69 yo male presents with left hip pain, started last night at work, no injury to area. Hx of low back pain and did have an injection about 4 months prior and did get relief from this. Rates pain 2/10, pain is intermittent and worsens with twisting movement. Left Hip Pain Score (Numeric/FACES): 2 - Related Data Allergies Allergy/AdvReac Type Severity Reaction Status Date / Time No Known Allergies Allergy Verified 11/21/19 07:35 Home Meds: Home Meds atorvaSTATin [Lipitor] 80 mg PO BEDTIME tablet 09/30/15 [Rx] Aspirin [Ecotrin EC] 81 mg PO QPM 01/20/17 [History] Losartan Potassium 12.5 mg PO DAILY 01/20/17 [History] Spironolactone [Aldactone] 12.5 mg PO DAILY 01/20/17 [History] carvediloL [Carvedilol] 12.5 mg PO BID 01/20/17 [History] traZODone 150 mg PO QPM 01/20/17 [History] Albuterol [Ventolin HFA] 1 puff INH Q4H PRN 02/09/18 [History] Magnesium 250 mg PO DAILY 02/09/18 [History] Multivit-Min/Folic/Vit K/Lycop [Men's Daily Formula Tablet] 1 tab PO DAILY 02/09 [History] Omeprazole [priLOSEC OTC] 20 mg PO DAILY 02/09/18 [History] Potassium 99 mg PO DAILY 02/09/18 [History] diphenhydrAMINE HCL [Diphenhydramine HCl] 100 mg PO BEDTIME 02/09/18 [History] Acetaminophen [Tylenol Arthritis] 650 mg PO BID 08/04/19 [History] Fluticasone/Umeclidin/Vilanter [Trelegy Ellipta 100-62.5-25] 1 each INH DAILY [History] metFORMIN [Glucophage] 500 mg PO DAILY 08/04/19 [History] oxyCODONE [Oxycodone HCl] 10 mg PO Q8HR 08/04/19 [History] Past Medical History HEENT History: Reports: Hard of Hearing Cardiovascular History: Reports: Bypass, High Cholesterol, Hypertension, [place], Pacemaker, SOB on Exertion Respiratory History: Reports: Asthma, COPD, Pneumonia, Recurrent, SOB Gastrointestinal History: Reports: GERD Genitourinary History: Reports: Renal Calculus, Renal Disease Musculoskeletal History: Reports: Back Pain, Chronic, Fracture, Osteoarthritis Other Musculoskeletal History: R Leg pain, 2 broken wrists, left leg fracture Neurological History: Reports: Other (See Below) Other Neuro History: numb in R forearm into 3-4-5 fingers since back sugery Jun Psychiatric History: Reports: None Endocrine/Metabolic History: Reports: None, Diabetes, Type II, Other (See Below) Other Endocrine/Metabolic History: pre-diabetic Hematologic History: Reports: None Immunologic History: Reports: None Oncologic (Cancer) History: Reports: None Dermatologic History: Reports: Cellulitis - Infectious Disease History Infectious Disease History: Reports: Chicken Pox - Past Surgical History Cardiovascular Surgical History: Reports: Coronary Artery Bypass, Coronary Artery Stent GI Surgical History: Reports: Colonoscopy Other GI Surgeries/Procedures: Reason for colonoscopy:Blood in stool-02/09/18 Other Endocrine Surgeries/Procedures: patient feels possibly a mild form of Diabetes type 2 Neurological Surgical History: Reports: Lumbar Spine, Spinal Fusion Social & Family History - Family History Family Medical History: Noncontributory Endocrine/Metabolic: Reports: IDDM Oncologic: Reports: Breast - Caffeine Use Caffeine Use: Reports: Coffee - Living Situation & Occupation Living situation: Reports: Occupation: Employed ED ROS GENERAL - Review of Systems Review Of Systems: See Below Constitutional: Reports: No Symptoms HEENT: Reports: No Symptoms Respiratory: Denies: Shortness of Breath, Cough, Sputum Cardiovascular: Denies: Chest Pain, Dyspnea on Exertion GI/Abdominal: Denies: Abdominal Pain, Nausea, Vomiting Musculoskeletal: Reports: Other (left hip pain) Skin: Reports: No Symptoms Neurological: Reports: No Symptoms Psychiatric: Reports: No Symptoms ED EXAM, GENERAL - Physical Exam Exam: See Below Exam Limited By: No Limitations General Appearance: Alert, No Apparent Distress Ears: Normal External Exam, Hearing Grossly Normal Nose: Normal Inspection, Normal Mucosa Head: Atraumatic, Normocephalic Neck: Normal Inspection, Supple, Full Range of Motion Respiratory/Chest: No Respiratory Distress, Decreased Breath Sounds. No: Rales , Rhonchi, Wheezing Cardiovascular: Regular Rate, Rhythm GI/Abdominal: Normal Bowel Sounds, Soft, Non-Tender Back Exam: Muscle Spasm (left sided Low back). No: Paraspinal Tenderness, Vertebral Tenderness Extremities: Other (left hip pain). No: Arm Pain, Leg Pain Neurological: Alert, Oriented, Normal Cognition Psychiatric: Normal Affect, Normal Mood Skin Exam: Warm, Dry, Normal Color Course - Vital Signs Last Recorded V/S: Last Vital Signs Temp 97.2 F 11/21/19 07:20 Pulse 103 H 11/21/19 07:20 Resp 20 11/21/19 07:20 BP 156/84 H 11/21/19 07:20 Pulse Ox 98 11/21/19 07:20 - Orders/Labs/Meds Labs: Laboratory Tests 11/21/19 11/21/19 11/21/19 Range/Units 07:58 07:58 07:58 WBC 11.1 H (4.0-11.0) K/uL RBC 4.79 (4.50-6.50) M/uL Hgb 14.1 (13.0-18.0) g/dL Hct 43.0 (40.0-54.0) % MCV 90 (76-96) fL MCH 29.4 (27.0-32.0) pg MCHC 32.8 (31.0-35.0) g/dL RDW 14.3 (11.0-16.0) % Plt Count 233 (150-400) K/uL MPV 9.3 (6.0-10.0) fL Neut % (Auto) 76.7 H (45.0-70.0) % Lymph % (Auto) 12.7 L (20.0-40.0) % [place] % (Auto) 7.0 (3.0-10.0) % Eos % (Auto) 3.0 (1.0-5.0) % Baso % (Auto) 0.6 H (0.0-0.5) % Neut # (Auto) 8.53 H (2.00-7.50) K/uL Lymph # (Auto) 1.41 L (1.50-4.00) K/uL [place] # (Auto) 0.78 (0.20-0.80) K/uL Eos # (Auto) 0.33 (0.04-0.40) K/uL Baso # (Auto) 0.07 (0.02-0.10) K/uL Sodium 141 (136-145) mmol/L Potassium 4.7 (3.5-5.1) mmol/L Chloride 105 (98-107) mmol/L Carbon Dioxide 25.8 (21.0-32.0) mmol/L Anion Gap 14.9 (5.0-15.0) mmol/L BUN 23 D (8-26) mg/dL Creatinine 1.45 H (0.70-1.30) mg/dL Est Cr Clr Drug Dosing 47.40 mL/min Estimated GFR (MDRD) 48 L (>60) MLS/MIN BUN/Creatinine Ratio 15.9 (6-25) Glucose 224 H (74-100) mg/dL Calcium 8.7 (8.5-10.1) mg/dL Total Bilirubin 0.4 D (0.0-1.0) mg/dL AST 19 (15-37) U/L ALT 29 (12-78) U/L Alkaline Phosphatase 80 (46-116) U/L Total Protein 7.4 (6.4-8.2) g/dL Albumin 3.8 (3.4-5.0) g/dL Globulin 3.6 (2.2-4.2) g/dL Albumin/Globulin Ratio 1.1 (0.8-2.0) Urine Color Yellow Urine Appearance Clear (CLEAR) Urine pH 5.5 (5.0-8.0) Ur Specific [place] >= 1.030 (1.003-1.030) Urine Protein 100 H (NEGATIVE) mg/dL Urine Glucose (UA) Negative (NEGATIVE) mg/dL Urine Ketones Negative (NEGATIVE) mg/dL Urine Occult Blood Negative (NEGATIVE) Urine Nitrite Negative (NEGATIVE) Urine Bilirubin Negative (NEGATIVE) Urine Urobilinogen 0.2 (0.2-1.0) E.U./dL Ur Leukocyte Esterase Trace H (NEGATIVE) U Hyaline Cast (Auto) Occasional /HPF Urine RBC Not seen /HPF Urine WBC 0-5 H /HPF Ur Squamous Epith Cells Few /HPF - Re-Assessments/Exams Free Text/Narrative Re-Assessment/Exam: 11/21/19 Muscle spasm pain noted to left lower back. Labs completed to assess for any infection, renal disorder or diabetes complications. Pt does have a hx of chronic low back pain, chronic SI joint pain, CHF, COPD, Diabetes Type 2, Htn, radiculopathy of leg and heart disease. Departure - Departure Time of Disposition: 09:10 Disposition: Home, Self-Care 01 Condition: Good Clinical Impression: Muscle spasm of back, Chronic SI joint pain - Discharge Information Instructions: Chronic Back Pain, [id number] Referrals: PCP,None [Primary Care Provider] - Forms: ED Department Discharge Additional Instructions: Discharge home. Make an appointment with Dr. Barcenas for another back injection. Continue taking muscle relaxer as prescribed in the morning after working, do not drive while on it. Apply ice or warm packs to the lower back. Follow up in the clinic as needed. Sepsis Event Note - Evaluation Sepsis Screening Result: No Definite Risk - Focused Exam Date Exam was Performed: 11/22/19 Time Exam was Performed: 16:14 - Assessment/Plan Plan: No acute findings with labs, no UTI noted, no leukocytosis. Continue with Muscle relaxer prn at bedtime and Oxycodone/APAP 7.5-325mg po 2-3 times daily. He has these medications at home. No driving with use of medications. Make an appointment with PCP for follow-up and possible for SI joint injection if pain persists.
== END 2019-11-21 09:10 | disposition home or self-care (01) ==
LOC: LB.ED 07:08
DX: M62.830 Muscle spasm of back (principal); E78.00 Pure hypercholesterolemia, unspecified; I10 Essential (primary) hypertension; I25.2 Old myocardial infarction; E11.9 Type 2 diabetes mellitus without complications; Z79.82 Long term (current) use of aspirin; Z79.899 Other long term (current) drug therapy; Z79.84 Long term (current) use of oral hypoglycemic drugs
CPT/HCPCS: 36415; 80053; 81001; 85025; 87086; 99283

== ENCOUNTER 2019-12-23 18:46 | Emergency (ER) | payer MEDICARE ==
[2019-12-23] MEDS ORDERED: Cephalexin 500 MG Cap ONE (19:00)
[2019-12-23 19:02] VITALS: BP 160/85; PULSE 99
--- NOTE | 2019-12-23 19:29 | EDM.PDOC ---
ED HPI GENERAL MEDICAL PROBLEM - General Chief Complaint: General Stated Complaint: LEFT GROIN PAIN Time Seen by Provider: 12/23/19 18:55 Source of Information: Reports: Patient History Limitations: Reports: No Limitations - History of Present Illness INITIAL COMMENTS - FREE TEXT/NARRATIVE: Our patient presents with left groin pain starting last Monday. He states that this was mostly a sharp discomfort radiating from his left lower abdominal wall into his left inguinal area. He denies any potential for injury or muscle strain. He has felt well except for some clear rhinorrhea over the last 2 days which is atypical for him. He relates that he has had multiple medical concerns throughout his life including coronary arterial disease requiring surgery and that he broke his left femur in the same place 3 times. He does recall a history of shingles about 30 years ago and remembers it to be quite painful. He was mainly brought in tonight by his family member caretaker noticing some redness around some scabbed areas of his left low back. Denies any fever, headache, sinus pressure, and has been doing his best to stay hydrated. He denies any pruritus of the lesions, but upon touching his back earlier today, he noticed some serosanguineous drainage. - Related Data Allergies Allergy/AdvReac Type Severity Reaction Status Date / Time No Known Allergies Allergy Verified 11/21/19 07:35 Home Meds: Home Meds atorvaSTATin [Lipitor] 80 mg PO BEDTIME tablet 09/30/15 [Rx] Aspirin [Ecotrin EC] 81 mg PO QPM 01/20/17 [History] Losartan Potassium 12.5 mg PO DAILY 01/20/17 [History] Spironolactone [Aldactone] 12.5 mg PO DAILY 01/20/17 [History] carvediloL [Carvedilol] 12.5 mg PO BID 01/20/17 [History] traZODone 150 mg PO QPM 01/20/17 [History] Albuterol [Ventolin HFA] 1 puff INH Q4H PRN 02/09/18 [History] Magnesium 250 mg PO DAILY 02/09/18 [History] Multivit-Min/Folic/Vit K/Lycop [Men's Daily Formula Tablet] 1 tab PO DAILY 02/09 [History] Omeprazole [priLOSEC OTC] 20 mg PO DAILY 02/09/18 [History] Potassium 99 mg PO DAILY 02/09/18 [History] diphenhydrAMINE HCL [Diphenhydramine HCl] 100 mg PO BEDTIME 02/09/18 [History] Acetaminophen [Tylenol Arthritis] 650 mg PO BID 08/04/19 [History] Fluticasone/Umeclidin/Vilanter [Trelegy Ellipta 100-62.5-25] 1 each INH DAILY [History] metFORMIN [Glucophage] 500 mg PO DAILY 08/04/19 [History] oxyCODONE [Oxycodone HCl] 10 mg PO Q8HR 08/04/19 [History] Past Medical History HEENT History: Reports: Hard of Hearing Cardiovascular History: Reports: Bypass, High Cholesterol, Hypertension, [place], Pacemaker, SOB on Exertion Respiratory History: Reports: Asthma, COPD, Pneumonia, Recurrent, SOB Gastrointestinal History: Reports: GERD Genitourinary History: Reports: Renal Calculus, Renal Disease Musculoskeletal History: Reports: Back Pain, Chronic, Fracture, Osteoarthritis Other Musculoskeletal History: R Leg pain, 2 broken wrists, left leg fracture Neurological History: Reports: Other (See Below) Other Neuro History: numb in R forearm into 3-4-5 fingers since back sugery Jun Psychiatric History: Reports: None Endocrine/Metabolic History: Reports: None, Diabetes, Type II, Other (See Below) Other Endocrine/Metabolic History: pre-diabetic Hematologic History: Reports: None Immunologic History: Reports: None Oncologic (Cancer) History: Reports: None Dermatologic History: Reports: Cellulitis - Infectious Disease History Infectious Disease History: Reports: Chicken Pox - Past Surgical History Cardiovascular Surgical History: Reports: Coronary Artery Bypass, Coronary Artery Stent GI Surgical History: Reports: Colonoscopy Other GI Surgeries/Procedures: Reason for colonoscopy:Blood in stool-02/09/18 Other Endocrine Surgeries/Procedures: patient feels possibly a mild form of Diabetes type 2 Neurological Surgical History: Reports: Lumbar Spine, Spinal Fusion Social & Family History - Family History Family Medical History: Noncontributory Endocrine/Metabolic: Reports: IDDM Oncologic: Reports: Breast - Caffeine Use Caffeine Use: Reports: Coffee - Living Situation & Occupation Living situation: Reports: Occupation: Employed ED ROS GENERAL - Review of Systems Review Of Systems: Comprehensive ROS is negative, except as noted in HPI. ED EXAM, GENERAL - Physical Exam Exam: See Below Exam Limited By: No Limitations General Appearance: Alert, WD/WN, No Apparent Distress Nose: Normal Inspection, Clear Rhinorrhea, Other (Mucosa appears a bit boggy and slightly erythematous) Throat/Mouth: Normal Inspection, Normal Oropharynx Head: Atraumatic, Normocephalic Neck: Normal Inspection, Supple. No: Lymphadenopathy (R), Lymphadenopathy (L) Respiratory/Chest: No Respiratory Distress, Lungs Clear Cardiovascular: Regular Rate, Rhythm, No Gallop, No Murmur, No Rub GI/Abdominal: Soft, Non-Tender, No Mass (Male) Exam: No Hernia Extremities: Normal Capillary Refill Neurological: Alert, Oriented, Normal Cognition Skin Exam: Zoster-Like Rash (Of his L3 dermatome on the left starting just adjacent to his midline remote laminectomy scar) Course - Vital Signs Text/Narrative:: Explained at this point that he is herpes zoster until proven otherwise and we theorized together that it did not hurt as much due to involvement where he had his back surgery. Given the chronicity of his symptoms, he does not appear to be a candidate for treatment. Having said this, his significant other points out he had a bad staph infection of his elbow despite her cleaning it carefully with peroxide, and she would feel better if he was covered with an antibiotic which seems more than reasonable. We provided him with a to go pack of Keflex to continue 500 mg p.o. 3 times daily until gone #20 and she will continue to watch the area carefully and report any increased symptoms of infection. Otherwise discussed pain control, he does have Percocet at home to use. We also discussed trying a nonsedating antihistamine for his clear rhinorrhea and may be this URI infection predisposed to this shingles flare, and potentially this could lead to the slight increased diarrhea that he has had over the last couple of days as well. One way or another, they are reliable to return with any persistent or worsening issues. Last Recorded V/S: Last Vital Signs Temp 96.8 F L 12/23/19 18:57 Pulse 99 12/23/19 18:57 Resp 20 12/23/19 18:57 BP 160/85 H 12/23/19 18:57 Pulse Ox 97 12/23/19 18:57 Departure - Departure Time of Disposition: 17:10 Disposition: Home, Self-Care 01 Condition: Good Clinical Impression: Herpes zoster Qualifiers: Herpes zoster complications: unspecified herpes zoster complication Qualified Code(s): B02.8 - Zoster with other complications - Discharge Information Instructions: Shingles, [id number] Forms: ED Department Discharge Additional Instructions: Discharge home. Continue current medications. Take cephalexin 500mg by mouth 3 times a day for 7 days. Take an antihistamine to help with nasal drainage, Zyrtec 10mg by mouth daily. Take a probiotic daily. If the rash becomes itchy, apply hydrocortisone. Keep the rash open to air to dry sores out. Follow up in the clinic as needed. Call or return to the ER if you have questions or concerns. Sepsis Event Note - Evaluation Sepsis Screening Result: No Definite Risk - Focused Exam Vital Signs: Vital Signs Temp Pulse Resp BP Pulse Ox 12/23/19 18:57 96.8 F L 99 20 160/85 H 97 Date Exam was Performed: 12/23/19 Time Exam was Performed: 19:24
== END 2019-12-23 19:25 | disposition home or self-care (01) ==
LOC: LB.ED 18:46
DX: B02.9 Zoster without complications (principal); R10.32 Left lower quadrant pain; I10 Essential (primary) hypertension; I25.2 Old myocardial infarction; J44.9 Chronic obstructive pulmonary disease, unspecified; E11.9 Type 2 diabetes mellitus without complications; Z95.0 Presence of cardiac pacemaker; Z79.84 Long term (current) use of oral hypoglycemic drugs; Z79.899 Other long term (current) drug therapy; Z95.1 Presence of aortocoronary bypass graft; Z98.1 Arthrodesis status; Z79.82 Long term (current) use of aspirin
CPT/HCPCS: 99283; A9270

== ENCOUNTER 2020-04-02 12:27 | Emergency (ER) | payer MEDICARE, OTHER ==
--- NOTE | 2020-04-02 12:55 | EDM.PDOC ---
ED HPI GENERAL MEDICAL PROBLEM - General Chief Complaint: Back Pain or Injury Stated Complaint: WORK INJURY 03/24/20 Time Seen by Provider: 04/02/20 12:30 Source of Information: Reports: Patient History Limitations: Reports: No Limitations - History of Present Illness INITIAL COMMENTS - FREE TEXT/NARRATIVE: pt presents to the ER with low back pain after a fall while at work 6 days ago. pt states he fell onto his back and experienced low back pain with left side sciatica as well as right shoulder and elbow pain. pt states the elbow and shoulder pain has resolved but the low back pain has not and sciatica with neuropathy has worsened. pt states history of lumbar fusion about 2-3 years ago with intermittent history of sciatica and neuropathy. pt denies lower leg weakness, bladder hesitancy or incontinence, bowel incontinence, saddle anesthesia. pt states his pain has not improved with his current narcotic medication regimen. he also provides history of "steroid shots in my back" by Dr. Barcenas with most recent about 4-6 months ago. Treatments CLINICAL PHARMACOLOGIST: Reports: Home Treatments Other Treatments CLINICAL PHARMACOLOGIST: Oxycodone Bilateral Lower Posterior Back Pain Score (Numeric/FACES): 8 - Related Data Allergies Allergy/AdvReac Type Severity Reaction Status Date / Time No Known Allergies Allergy Verified 04/02/20 12:33 Home Meds: Home Meds atorvaSTATin [Lipitor] 80 mg PO BEDTIME tablet 09/30/15 [Rx] Aspirin [Ecotrin EC] 81 mg PO QPM 01/20/17 [History] Losartan Potassium 12.5 mg PO DAILY 01/20/17 [History] Spironolactone [Aldactone] 12.5 mg PO DAILY 01/20/17 [History] carvediloL [Carvedilol] 12.5 mg PO BID 01/20/17 [History] traZODone 150 mg PO QPM 01/20/17 [History] Albuterol [Ventolin HFA] 1 puff INH Q4H PRN 02/09/18 [History] Magnesium 250 mg PO DAILY 02/09/18 [History] Multivit-Min/Folic/Vit K/Lycop [Men's Daily Formula Tablet] 1 tab PO DAILY 02/09/18 [History] Omeprazole [priLOSEC OTC] 20 mg PO DAILY 02/09/18 [History] Potassium 99 mg PO DAILY 02/09/18 [History] diphenhydrAMINE HCL [Diphenhydramine HCl] 100 mg PO BEDTIME 02/09/18 [History] Acetaminophen [Tylenol Arthritis] 650 mg PO BID 08/04/19 [History] Fluticasone/Umeclidin/Vilanter [Trelegy Ellipta 100-62.5-25] 1 each INH DAILY 08/04/19 [History] metFORMIN [Glucophage] 500 mg PO DAILY 08/04/19 [History] oxyCODONE [Oxycodone HCl] 10 mg PO Q8HR 08/04/19 [History] Past Medical History HEENT History: Reports: Hard of Hearing Cardiovascular History: Reports: Bypass, High Cholesterol, Hypertension, [place], Pacemaker, SOB on Exertion Respiratory History: Reports: Asthma, COPD, Pneumonia, Recurrent, SOB Gastrointestinal History: Reports: GERD Genitourinary History: Reports: Renal Calculus, Renal Disease Musculoskeletal History: Reports: Back Pain, Chronic, Fracture, Osteoarthritis Other Musculoskeletal History: R Leg pain, 2 broken wrists, left leg fracture Neurological History: Reports: Other (See Below) Other Neuro History: numb in R forearm into 3-4-5 fingers since back sugery Jun Psychiatric History: Reports: None Endocrine/Metabolic History: Reports: None, Diabetes, Type II, Other (See Below) Other Endocrine/Metabolic History: pre-diabetic Hematologic History: Reports: None Immunologic History: Reports: None Oncologic (Cancer) History: Reports: None Dermatologic History: Reports: Cellulitis - Infectious Disease History Infectious Disease History: Reports: Chicken Pox - Past Surgical History Cardiovascular Surgical History: Reports: Coronary Artery Bypass, Coronary Artery Stent GI Surgical History: Reports: Colonoscopy Other GI Surgeries/Procedures: Reason for colonoscopy:Blood in stool-02/09/18 Other Endocrine Surgeries/Procedures: patient feels possibly a mild form of Diabetes type 2 Neurological Surgical History: Reports: Lumbar Spine, Spinal Fusion Social & Family History - Family History Family Medical History: Noncontributory Endocrine/Metabolic: Reports: IDDM Oncologic: Reports: Breast - Caffeine Use Caffeine Use: Reports: Coffee - Living Situation & Occupation Living situation: Reports: Occupation: Employed ED ROS GENERAL - Review of Systems Review Of Systems: Comprehensive ROS is negative, except as noted in HPI. ED EXAM, GENERAL - Physical Exam Exam: See Below Exam Limited By: No Limitations General Appearance: Alert Eye Exam: Bilateral Eye: EOMI, PERRL Throat/Mouth: Normal Inspection, Normal Oropharynx, Normal Voice Respiratory/Chest: No Respiratory Distress, Lungs Clear, Normal Breath Sounds, No Accessory Muscle Use Cardiovascular: Normal Peripheral Pulses, No Edema, No Gallop, No Murmur Peripheral Pulses: 2+: Radial (L), Radial (R), Posterior Tibial (L), Posterior Tibial (R) Back Exam: Paraspinal Tenderness (left greater than right side), Vertebral Tenderness (mildly tender) Extremities: Normal Inspection, Non-Tender, No Pedal Edema Neurological: Alert, Oriented, CN II-XII Intact, Normal Cognition, Other (DTR to lower extremities intact bilateral: patallar and achilles.) Skin Exam: Warm, Dry, Intact Course - Vital Signs Last Recorded V/S: Last Vital Signs Temp 97.0 F 04/02/20 12:33 Pulse 76 04/02/20 13:31 Resp 22 H 04/02/20 12:33 BP 158/95 H 04/02/20 13:31 Pulse Ox 98 04/02/20 12:33 - Orders/Labs/Meds Meds: Medications Discontinued Medications Generic Name Dose Route Start Last Admin Trade Name Freq PRN Reason Stop Dose Admin Ketorolac Tromethamine 15 mg 04/02/20 12:45 04/02/20 13:02 Toradol IM 04/02/20 12:46 15 mg ONETIME ONE Administration Ketorolac Tromethamine Confirm 04/02/20 13:02 Toradol Administered 04/02/20 13:03 Dose 30 mg .ROUTE .STK-MED ONE Departure - Departure Time of Disposition: 14:11 Disposition: Home, Self-Care 01 Condition: Good Clinical Impression: Acute myofascial strain of lumbosacral region, Sciatica - Discharge Information *PRESCRIPTION DRUG MONITORING PROGRAM REVIEWED*: Not Applicable *COPY OF PRESCRIPTION DRUG MONITORING REPORT IN PATIENT ASIYA: Not Applicable Instructions: Back Injury Prevention, [id number], Muscle Strain, [id number] Referrals: PCP,None [Primary Care Provider] - Forms: ED Department Discharge Additional Instructions: lift no more than 15lb for the next 3 weeks. after than you can resume activity as normal. tylenol, ibuprofen as we discussed and warm or cold packs as we discussed. Sepsis Event Note (ED) - Evaluation Sepsis Screening Result: No Definite Risk - Focused Exam Vital Signs: Vital Signs Temp Pulse Resp BP Pulse Ox 04/02/20 13:31 76 158/95 H 04/02/20 12:33 97.0 F 95 22 H 182/101 H 98 - Problem List & Annotations (1) Acute myofascial strain of lumbosacral region SNOMED Code(s): 862799299, 80780860, 053969333 Code(s): S39.012A - STRAIN OF MUSCLE, FASCIA AND TENDON OF LOWER BACK, INIT Status: Acute Current Visit: Yes (2) Sciatica SNOMED Code(s): 55663667 Code(s): M54.30 - SCIATICA, UNSPECIFIED SIDE Status: Acute Current Visit: Yes - Problem List Review Problem List Initiated/Reviewed/Updated: Yes - Assessment/Plan Assessment:: assessment: lumbar back strain with sciatica plan: tylenol and ibuprofen OTC warm and cold packs no rapid twisting or bending over. no more than 15lb lift for the next 3 weeks then no restrictions after.
[2020-04-02] MEDS: Ketorolac 30 MG/ML SDV IM ONE (13:02)
[2020-04-02] MEDS ORDERED: Ketorolac 30 MG/ML SDV ONE (13:02)
[2020-04-02 13:34] VITALS: BP 158/95; PULSE 76
--- NOTE | 2020-04-02 14:00 | CR ---
DATE OF SERVICE: 04/02/2020 CLINICAL DATA: Pain Lumbar spine: Comparison is made to prior exam dated 02 January 2018. There is diffuse osteopenia. The patient is status post L5-S1 laminectomy. There is internal fixation of L5 and S1 with posterior metal rods and pedicle screws. There is slight anterolisthesis of L5 on S1, unchanged. There is severe degenerative disc disease at the L4-L5 level with vacuum disc phenomenon There is mild degenerative disc disease at multiple other levels. There are degenerative changes involving the SI joints. No acute abnormalities. MTDD
== END 2020-04-02 14:30 | disposition home or self-care (01) ==
LOC: LB.ED 12:27
DX: S39.012A Strain of muscle, fascia and tendon of lower back, initial encounter (principal); M54.42 Lumbago with sciatica, left side; I10 Essential (primary) hypertension; E78.00 Pure hypercholesterolemia, unspecified; I25.2 Old myocardial infarction; E11.9 Type 2 diabetes mellitus without complications; J44.9 Chronic obstructive pulmonary disease, unspecified; K21.9 Gastro-esophageal reflux disease without esophagitis; Z95.5 Presence of coronary angioplasty implant and graft; Z79.84 Long term (current) use of oral hypoglycemic drugs; Z79.899 Other long term (current) drug therapy; W19.XXXA Unspecified fall, initial encounter; Y92.89 Other specified places as the place of occurrence of the external cause; Y99.0 Civilian activity done for income or pay
CPT/HCPCS: 72100; 96372; 99283; J1885

== ENCOUNTER 2020-06-17 13:38 | Inpatient (IN) | payer MEDICARE ==
[2020-06-17] MEDS ORDERED: Sodium Chloride 0.9% 10 ML Syringe FLUSH PRN (14:29)
[2020-06-17] MEDS ORDERED: Levofloxacin 500 MG Tab ONE (14:30)
--- NOTE | 2020-06-17 14:39 | PCM.HP.2 ---
H&P History of Present Illness - General Date of Service: 06/17/20 Admit Problem/Dx: Admission Diagnosis/Problem Admission Diagnosis/Problem Urosepsis Source of Information: Patient, Old Records History Limitations: Reports: No Limitations - History of Present Illness Initial Comments - Free Text/Narative: This is a 70yo M here for chills, shortness of breath and urinary frequency for the past 2 days. He denies any chest pain or fever. He notes he doesn't feel well generally. Onset of Symptoms: Reports: Gradual Duration of Symptoms: Reports: Day(s): Location: Reports: Generalized Associated Symptoms: Reports: Fever/Chills, Shortness of Breath, Weakness - Related Data Allergies/Adverse Reactions: Allergies Allergy/AdvReac Type Severity Reaction Status Date / Time No Known Allergies Allergy Verified 04/02/20 12:33 Home Medications: Home Meds Aspirin [Ecotrin EC] 81 mg PO QPM 01/20/17 [History] Losartan Potassium 25 mg PO DAILY 01/20/17 [History] Spironolactone [Aldactone] 12.5 mg PO DAILY 01/20/17 [History] carvediloL [Carvedilol] 12.5 mg PO BID 01/20/17 [History] traZODone 150 mg PO QPM 01/20/17 [History] Albuterol [Ventolin HFA] 1 puff INH Q4H PRN 02/09/18 [History] Magnesium 2 tab PO DAILY 02/09/18 [History] Multivit-Min/Folic/Vit K/Lycop [Men's Daily Formula Tablet] 1 tab PO DAILY 02/09/18 [History] Omeprazole [priLOSEC OTC] 20 mg PO DAILY 02/09/18 [History] Potassium 99 mg PO DAILY 02/09/18 [History] diphenhydrAMINE HCL [Diphenhydramine HCl] 50 mg PO BEDTIME 02/09/18 [History] Acetaminophen [Tylenol Arthritis] 650 mg PO BID 08/04/19 [History] Fluticasone/Umeclidin/Vilanter [Trelegy Ellipta 100-62.5-25] 1 each INH DAILY 08/04/19 [History] Fluticasone/Umeclidin/Vilanter [Trelegy Ellipta 100-62.5-25] 1 each INH DAILY 06/17/20 [History] atorvaSTATin [Lipitor] 80 mg PO BEDTIME 06/17/20 [History] oxyCODONE HCl/Acetaminophen [Endocet 7.5-325 mg Tablet] 1 tab PO Q8H 06/17/20 [History] Past Medical History HEENT History: Reports: Hard of Hearing Cardiovascular History: Reports: Bypass, High Cholesterol, Hypertension, HI, Pacemaker, SOB on Exertion Respiratory History: Reports: Asthma, COPD, Pneumonia, Recurrent, SOB Gastrointestinal History: Reports: GERD Genitourinary History: Reports: Renal Calculus, Renal Disease Musculoskeletal History: Reports: Back Pain, Chronic, Fracture, Osteoarthritis Other Musculoskeletal History: R Leg pain, 2 broken wrists, left leg fracture Neurological History: Reports: Other (See Below) Other Neuro History: numb in R forearm into 3-4-5 fingers since back sugery Jun Psychiatric History: Reports: None Endocrine/Metabolic History: Reports: None, Diabetes, Type II, Other (See Below) Other Endocrine/Metabolic History: pre-diabetic Hematologic History: Reports: None Immunologic History: Reports: None Oncologic (Cancer) History: Reports: None Dermatologic History: Reports: Cellulitis - Infectious Disease History Infectious Disease History: Reports: Chicken Pox - Past Surgical History Cardiovascular Surgical History: Reports: Coronary Artery Bypass, Coronary Artery Stent GI Surgical History: Reports: Colonoscopy Other GI Surgeries/Procedures: Reason for colonoscopy:Blood in stool-02/09/18 Other Endocrine Surgeries/Procedures: patient feels possibly a mild form of Diabetes type 2 Neurological Surgical History: Reports: Lumbar Spine, Spinal Fusion Social & Family History - Family History Family Medical History: Noncontributory Endocrine/Metabolic: Reports: IDDM Oncologic: Reports: Breast - Caffeine Use Caffeine Use: Reports: Coffee - Living Situation & Occupation Living situation: Reports: Occupation: Employed H&P Review of Systems - Review of Systems: Review Of Systems: Comprehensive ROS is negative, except as noted in HPI. Exam - Exam Exam: See Below - Exam General: Alert, Oriented, Cooperative HEENT: PERRLA, Conjunctiva Clear, EOMI Lungs: Decreased Breath Sounds, Rhonchi Cardiovascular: Regular Rate, Regular Rhythm GI/Abdominal Exam: Normal Bowel Sounds, Soft, Non-Tender Extremities: Normal Inspection, Normal Range of Motion Peripheral Pulses: 2+: Dorsalis Pedis (L), Dorsalis Pedis (R) Skin: Warm, Dry, Intact Neuro Extensive - Mental Status: Alert, Oriented x3, Normal Mood/Affect Psychiatric: Alert, Normal Affect, Normal Mood - Patient Data Lab Results Last 24 hrs: Laboratory Results - last 24 hr 06/17/20 06/17/20 06/17/20 Range/Units 13:44 13:44 13:44 WBC 24.4 H* D (4.0-11.0) K/uL RBC 5.58 (4.50-6.50) M/uL Hgb 16.3 (13.0-18.0) g/dL Hct 48.1 (40.0-54.0) % MCV 86 (76-96) fL MCH 29.2 (27.0-32.0) pg MCHC 33.9 (31.0-35.0) g/dL RDW 14.2 (11.0-16.0) % Plt Count 246 (150-400) K/uL MPV 10.4 H (6.0-10.0) fL Add Manual Diff Yes Sodium 133 L (136-145) mmol/L Potassium 4.9 (3.5-5.1) mmol/L Chloride 99 (98-107) mmol/L Carbon Dioxide 21.7 (21.0-32.0) mmol/L Anion Gap 17.2 H (5.0-15.0) mmol/L BUN 36 H D (8-26) mg/dL Creatinine 1.55 H (0.70-1.30) mg/dL Est Cr Clr Drug Dosing TNP Estimated GFR (MDRD) 44 L (>60) MLS/MIN BUN/Creatinine Ratio 23.2 (6-25) Glucose 355 H D (74-100) mg/dL Calcium 8.8 (8.5-10.1) mg/dL Urine Color Yellow Urine Appearance Clear (CLEAR) Urine pH 5.5 (5.0-8.0) Ur Specific [place] 1.025 (1.003-1.030) Urine Protein 30 H (NEGATIVE) mg/dL Urine Glucose (UA) 500 H (NEGATIVE) mg/dL Urine Ketones Negative (NEGATIVE) mg/dL Urine Occult Blood Trace-intact H (NEGATIVE) Urine Nitrite Negative (NEGATIVE) Urine Bilirubin Negative (NEGATIVE) Urine Urobilinogen 0.2 (0.2-1.0) E.U./dL Ur Leukocyte Esterase Trace H (NEGATIVE) Urine RBC 0-5 H /HPF Urine WBC 0-5 H /HPF Ur Squamous Epith Cells Occasional /HPF Result Diagrams: 06/17/20 13:44 06/17/20 13:44 Sepsis Event Note - Evaluation Current Stage of Sepsis: Sepsis Possible Source of Sepsis: Genitourinary - Focused Exam Sepsis Event Note Statement: Focused Sepsis Exam Completed Pulse Description: 2+ Normal Peripheral Pulse Location: Radial Skin Exam (Focused Sepsis): Normal Turgor Date Exam was Performed: 06/17/20 Time Exam was Performed: 14:00 - Problem List (1) UTI (urinary tract infection) SNOMED Code(s): 41727908 ICD Code: N39.0 - URINARY TRACT INFECTION, SITE NOT SPECIFIED Status: Acute Priority: High Current Visit: Yes Qualifiers: Urinary tract infection type: acute cystitis Hematuria presence: without hematuria Qualified Code(s): N30.00 - Acute cystitis without hematuria (2) Sepsis due to urinary tract infection SNOMED Code(s): 336418853 ICD Code: A41.9 - SEPSIS, UNSPECIFIED ORGANISM; N39.0 - URINARY TRACT INFECTION, SITE NOT SPECIFIED Status: Acute Priority: High Current Visit: Yes (3) COPD (chronic obstructive pulmonary disease) SNOMED Code(s): 15490210 ICD Code: J44.9 - CHRONIC OBSTRUCTIVE PULMONARY DISEASE, UNSPECIFIED Status: Chronic Priority: High Current Visit: Yes Qualifiers: COPD type: unspecified COPD Qualified Code(s): J44.9 - Chronic obstructive pulmonary disease, unspecified (4) Diabetes SNOMED Code(s): 41881506 ICD Code: E11.9 - TYPE 2 DIABETES MELLITUS WITHOUT COMPLICATIONS Status: Chronic Priority: High Current Visit: Yes Qualifiers: Diabetes mellitus type: type 2 (5) Hypertension SNOMED Code(s): 83021200 ICD Code: I10 - ESSENTIAL (PRIMARY) HYPERTENSION Status: Chronic Priority: High Current Visit: Yes Qualifiers: Hypertension type: essential hypertension Qualified Code(s): I10 - Essential (primary) hypertension (6) Hyperlipidemia SNOMED Code(s): 14338313 ICD Code: E78.5 - HYPERLIPIDEMIA, UNSPECIFIED Status: Acute Priority: Hig h Current Visit: Yes Qualifiers: Hyperlipidemia type: other hyperlipidemia Qualified Code(s): E78.49 - Other hyperlipidemia; E78.4 - Other hyperlipidemia (7) Morbid obesity SNOMED Code(s): 275286407 ICD Code: E66.01 - MORBID (SEVERE) OBESITY DUE TO EXCESS CALORIES Status: Chronic Priority: High Current Visit: Yes (8) Shortness of breath SNOMED Code(s): 883412739 ICD Code: R06.02 - SHORTNESS OF BREATH Status: Acute Priority: High Current Visit: Yes Onset Date: ~01/20/17 Problem Details: 01/20/17 - 1. Hypertension, currently well controlled. 2. Shortness of breath with some concern of mild CHF. (9) CHF (congestive heart failure) SNOMED Code(s): 87338255 ICD Code: I50.9 - HEART FAILURE, UNSPECIFIED Status: Chronic Priority: High Current Visit: Yes Onset Date: ~01/20/17 Problem Details: 01/20/17 - 1. Hypertension, currently well controlled. 2. Shortness of breath with some concern of mild CHF. Qualifiers: Heart failure type: diastolic Heart failure chronicity: chronic Qualified Code(s): I50.32 - Chronic diastolic (congestive) heart failure (10) Acute on chronic renal insufficiency SNOMED Code(s): 666147971 ICD Code: N28.9 - DISORDER OF KIDNEY AND URETER, UNSPECIFIED; N18.9 - CHRONIC KIDNEY DISEASE, UNSPECIFIED Status: Acute Priority: High Current Visit: Yes Problem List Initiated/Reviewed/Updated: Yes Orders Last 24hrs: Active Orders 24 hr Category Date Time Status Patient Status [ADT] Routine ADT 06/17/20 14:29 Ordered Oxygen Therapy [RC] PRN Care 06/17/20 14:29 Ordered VTE/DVT Education [RC] Per Unit Routine Care 06/17/20 14:29 Ordered Vital Signs [RC] Q4H Care 06/17/20 14:29 Ordered Heart Healthy Diet [DIET] Diet 06/17/20 Dinner Ordered Chest 1V Frontal [CR] Routine Exams 06/17/20 14:29 Ordered CBC WITH AUTO DIFF [HEME] AM Lab 06/18/20 05:11 Ordered CBC WITH AUTO DIFF [HEME] Routine Lab 06/17/20 13:44 Results COMPREHENSIVE METABOLIC PN,CMP [CHEM] AM Lab 06/18/20 05:11 Ordered CULTURE BLOOD [BC] Stat Lab 06/17/20 14:29 Ordered CULTURE URINE [RM] Stat Lab 06/17/20 14:29 Ordered Sodium Chloride 0.9% [Saline Flush] Med 06/17/20 14:29 Ordered 10 ml FLUSH ASDIRECTED PRN Peripheral IV Insertion Adult [OM.PC] Routine Oth 06/17/20 14:29 Ordered Resuscitation Status Routine Resus Stat 06/17/20 14:29 Ordered Medication Orders Sodium Chloride (Saline Flush) 10 ml FLUSH ASDIRECTED PRN PRN Reason: Keep Vein Open Assessment/Plan Comment:: Patient admitted for Urosepsis and management of chronic concerns. Placed on IV Rocephin and will f/u labs in the AM. Patient IN/Out to be monitored due to acute on chronic renal insufficiency. We gently hydrate. COPD management - continue home meds. CHF - No changes - close monitoring of hydration so as not to fluid overload. HTN - controlled on home meds. HLP - continue home meds.
[2020-06-17] MEDS ORDERED: cefTRIAXone 1 GM Vial ONE (15:06)
[2020-06-17] MEDS: cefTRIAXone 1 GM in Sodium Chloride 0.9% 50 ML IV SCH (16:00)
[2020-06-17] MEDS ORDERED: Albuterol 8 GM Inhaler INH PRN (16:43)
[2020-06-17] MEDS ORDERED: ACETAMINOPHEN PO SCH (16:45)
[2020-06-17] MEDS ORDERED: OXYCODONE HCL PO SCH (16:45)
--- NOTE | 2020-06-17 18:12 | CR ---
DATE OF SERVICE: 06/17/20 CLINICAL DATA: shortness of breath AP CHEST: Comparison is made to a prior exam dated 09/22/19. The cardiac pacer and pacer wires remain unchanged in position. The patient is status post median sternotomy. The heart is mildly enlarged. The lungs are clear. No pneumothorax. No pleural effusions. No evidence of acute intrathoracic disease. [id number] [facility]
[2020-06-17] MEDS: Sodium Chloride 0.9% 1,000 ML IV SCH (19:45)
[2020-06-17] MEDS: Acetaminophen 650 MG Tab.ER PO SCH (20:04)
[2020-06-17] MEDS: traZODone 50 MG Tab PO SCH (20:04)
[2020-06-17] MEDS: diphenhydrAMINE 50 MG Cap PO SCH (20:08)
[2020-06-17] MEDS: Carvedilol 6.25 MG Tab PO SCH (20:08)
[2020-06-17] MEDS: Aspirin 81 MG Tab.EC PO SCH (20:08)
[2020-06-17] MEDS: atorvaSTATin 80 MG Tab PO SCH (20:08)
[2020-06-18] MEDS ORDERED: Non-Formulary Medication 1 Each (Fluticasone/Umeclidin/Vilanter [Trelegy Ellipta 100-62.5- INH SCH (08:00)
[2020-06-18] MEDS ORDERED: Fluticasone/Umeclidin/Vilanter [Trelegy Ellipta] 100-62.5-25mcg INH SCH (08:00)
[2020-06-18] MEDS ORDERED: FOLIC PO SCH (08:00)
[2020-06-18] MEDS ORDERED: LYCOP PO SCH (08:00)
[2020-06-18] MEDS ORDERED: VIT K PO SCH (08:00)
[2020-06-18] MEDS ORDERED: MULTIVIT MIN PO SCH (08:00)
[2020-06-18] MEDS ORDERED: POTASSIUM PO SCH (08:00)
[2020-06-18] MEDS: Pantoprazole 40 MG Tab.CR PO SCH (08:29)
[2020-06-18] MEDS: Losartan 25 MG Tab PO SCH (08:29)
[2020-06-18] MEDS: Carvedilol 6.25 MG Tab PO SCH ×2 (08:31→17:11)
[2020-06-18] MEDS: Spironolactone 25 MG Tab PO SCH (08:32)
[2020-06-18] MEDS: Acetaminophen 650 MG Tab.ER PO SCH ×2 (08:37→19:40)
[2020-06-18] MEDS ORDERED: Acetaminophen 325 MG Tab PO PRN (09:34)
--- NOTE | 2020-06-18 09:40 | PCM.PN ---
- General Info Date of Service: 06/18/20 Subjective Update: This is a 70yo M here for Urosepsis. He notes improvement generally including his appetite. He denies any concerns today. Functional Status: Reports: Pain Controlled, Tolerating Diet, Ambulating - Review of Systems General: Reports: Weakness HEENT: Reports: No Symptoms Pulmonary: Reports: No Symptoms Cardiovascular: Reports: No Symptoms Gastrointestinal: Reports: Decreased Appetite Genitourinary: Reports: No Symptoms Musculoskeletal: Reports: No Symptoms - Patient Data Vitals - Most Recent: Last Vital Signs Temp 36.6 C 06/18/20 08:00 Pulse 64 06/18/20 08:31 Resp 16 06/18/20 08:00 BP 151/63 H 06/18/20 08:31 Pulse Ox 97 06/18/20 08:00 Weight - Most Recent: 115.723 kg Lab Results Last 24 Hours: Laboratory Results - last 24 hr 06/17/20 06/17/20 06/17/20 Range/Units 13:44 13:44 13:44 WBC 24.4 H* D (4.0-11.0) K/uL RBC 5.58 (4.50-6.50) M/uL Hgb 16.3 (13.0-18.0) g/dL Hct 48.1 (40.0-54.0) % MCV 86 (76-96) fL MCH 29.2 (27.0-32.0) pg MCHC 33.9 (31.0-35.0) g/dL RDW 14.2 (11.0-16.0) % Plt Count 246 (150-400) K/uL MPV 10.4 H (6.0-10.0) fL Neut % (Auto) (45.0-70.0) % Lymph % (Auto) (20.0-40.0) % [place] % (Auto) (3.0-10.0) % Eos % (Auto) (1.0-5.0) % Baso % (Auto) (0.0-0.5) % Neut # (Auto) (2.00-7.50) K/uL Lymph # (Auto) (1.50-4.00) K/uL [place] # (Auto) (0.20-0.80) K/uL Eos # (Auto) (0.04-0.40) K/uL Baso # (Auto) (0.02-0.10) K/uL Add Manual Diff Yes Neutrophils % (Manual) 86.0 H (45.0-70.0) % Lymphocytes % (Manual) 8.0 L (20.0-40.0) % Monocytes % (Manual) 6.0 (3.0-10.0) % Platelet Estimate Adequate Sodium 133 L (136-145) mmol/L Potassium 4.9 (3.5-5.1) mmol/L Chloride 99 (98-107) mmol/L Carbon Dioxide 21.7 (21.0-32.0) mmol/L Anion Gap 17.2 H (5.0-15.0) mmol/L BUN 36 H D (8-26) mg/dL Creatinine 1.55 H (0.70-1.30) mg/dL Est Cr Clr Drug Dosing TNP Estimated GFR (MDRD) 44 L (>60) MLS/MIN BUN/Creatinine Ratio 23.2 (6-25) Glucose 355 H D (74-100) mg/dL Lactic Acid (0.4-2.0) mmol/L Calcium 8.8 (8.5-10.1) mg/dL Total Bilirubin (0.0-1.0) mg/dL AST (15-37) U/L ALT (12-78) U/L Alkaline Phosphatase (46-116) U/L Total Protein (6.4-8.2) g/dL Albumin (3.4-5.0) g/dL Globulin (2.2-4.2) g/dL Albumin/Globulin Ratio (0.8-2.0) Urine Color Yellow Urine Appearance Clear (CLEAR) Urine pH 5.5 (5.0-8.0) Ur Specific [place] 1.025 (1.003-1.030) Urine Protein 30 H (NEGATIVE) mg/dL Urine Glucose (UA) 500 H (NEGATIVE) mg/dL Urine Ketones Negative (NEGATIVE) mg/dL Urine Occult Blood Trace-intact H (NEGATIVE) Urine Nitrite Negative (NEGATIVE) Urine Bilirubin Negative (NEGATIVE) Urine Urobilinogen 0.2 (0.2-1.0) E.U./dL Ur Leukocyte Esterase Trace H (NEGATIVE) Urine RBC 0-5 H /HPF Urine WBC 0-5 H /HPF Ur Squamous Epith Cells Occasional /HPF 06/17/20 06/17/20 06/18/20 Range/Units 14:57 18:02 07:20 WBC 16.0 H D (4.0-11.0) K/uL RBC 4.72 (4.50-6.50) M/uL Hgb 13.9 (13.0-18.0) g/dL Hct 41.4 (40.0-54.0) % MCV 88 (76-96) fL MCH 29.4 (27.0-32.0) pg MCHC 33.6 (31.0-35.0) g/dL RDW 14.1 (11.0-16.0) % Plt Count 228 (150-400) K/uL MPV 9.5 (6.0-10.0) fL Neut % (Auto) 88.8 H (45.0-70.0) % Lymph % (Auto) 6.4 L (20.0-40.0) % [place] % (Auto) 4.3 (3.0-10.0) % Eos % (Auto) 0.2 L (1.0-5.0) % Baso % (Auto) 0.3 (0.0-0.5) % Neut # (Auto) 14.17 H (2.00-7.50) K/uL Lymph # (Auto) 1.02 L (1.50-4.00) K/uL [place] # (Auto) 0.69 (0.20-0.80) K/uL Eos # (Auto) 0.03 L (0.04-0.40) K/uL Baso # (Auto) 0.05 (0.02-0.10) K/uL Add Manual Diff Neutrophils % (Manual) (45.0-70.0) % Lymphocytes % (Manual) (20.0-40.0) % Monocytes % (Manual) (3.0-10.0) % Platelet Estimate Sodium (136-145) mmol/L Potassium (3.5-5.1) mmol/L Chloride (98-107) mmol/L Carbon Dioxide (21.0-32.0) mmol/L Anion Gap (5.0-15.0) mmol/L BUN (8-26) mg/dL Creatinine (0.70-1.30) mg/dL Est Cr Clr Drug Dosing Estimated GFR (MDRD) (>60) MLS/MIN BUN/Creatinine Ratio (6-25) Glucose (74-100) mg/dL Lactic Acid 2.5 H 4.3 H (0.4-2.0) mmol/L Calcium (8.5-10.1) mg/dL Total Bilirubin (0.0-1.0) mg/dL AST (15-37) U/L ALT (12-78) U/L Alkaline Phosphatase (46-116) U/L Total Protein (6.4-8.2) g/dL Albumin (3.4-5.0) g/dL Globulin (2.2-4.2) g/dL Albumin/Globulin Ratio (0.8-2.0) Urine Color Urine Appearance (CLEAR) Urine pH (5.0-8.0) Ur Specific [place] (1.003-1.030) Urine Protein (NEGATIVE) mg/dL Urine Glucose (UA) (NEGATIVE) mg/dL Urine Ketones (NEGATIVE) mg/dL Urine Occult Blood (NEGATIVE) Urine Nitrite (NEGATIVE) Urine Bilirubin (NEGATIVE) Urine Urobilinogen (0.2-1.0) E.U./dL Ur Leukocyte Esterase (NEGATIVE) Urine RBC /HPF Urine WBC /HPF Ur Squamous Epith Cells /HPF 06/18/20 Range/Units 07:20 WBC (4.0-11.0) K/uL RBC (4.50-6.50) M/uL Hgb (13.0-18.0) g/dL Hct (40.0-54.0) % MCV (76-96) fL MCH (27.0-32.0) pg MCHC (31.0-35.0) g/dL RDW (11.0-16.0) % Plt Count (150-400) K/uL MPV (6.0-10.0) fL Neut % (Auto) (45.0-70.0) % Lymph % (Auto) (20.0-40.0) % [place] % (Auto) (3.0-10.0) % Eos % (Auto) (1.0-5.0) % Baso % (Auto) (0.0-0.5) % Neut # (Auto) (2.00-7.50) K/uL Lymph # (Auto) (1.50-4.00) K/uL [place] # (Auto) (0.20-0.80) K/uL Eos # (Auto) (0.04-0.40) K/uL Baso # (Auto) (0.02-0.10) K/uL Add Manual Diff Neutrophils % (Manual) (45.0-70.0) % Lymphocytes % (Manual) (20.0-40.0) % Monocytes % (Manual) (3.0-10.0) % Platelet Estimate Sodium 139 (136-145) mmol/L Potassium 5.1 (3.5-5.1) mmol/L Chloride 105 (98-107) mmol/L Carbon Dioxide 22.2 (21.0-32.0) mmol/L Anion Gap 16.9 H (5.0-15.0) mmol/L BUN 27 H D (8-26) mg/dL Creatinine 1.29 (0.70-1.30) mg/dL Est Cr Clr Drug Dosing 50.81 Estimated GFR (MDRD) 55 L (>60) MLS/MIN BUN/Creatinine Ratio 20.9 (6-25) Glucose 233 H D (74-100) mg/dL Lactic Acid (0.4-2.0) mmol/L Calcium 8.0 L (8.5-10.1) mg/dL Total Bilirubin 0.7 D (0.0-1.0) mg/dL AST 26 (15-37) U/L ALT 49 (12-78) U/L Alkaline Phosphatase 63 (46-116) U/L Total Protein 5.7 L (6.4-8.2) g/dL Albumin 2.8 L (3.4-5.0) g/dL Globulin 2.9 (2.2-4.2) g/dL Albumin/Globulin Ratio 1.0 (0.8-2.0) Urine Color Urine Appearance (CLEAR) Urine pH (5.0-8.0) Ur Specific [place] (1.003-1.030) Urine Protein (NEGATIVE) mg/dL Urine Glucose (UA) (NEGATIVE) mg/dL Urine Ketones (NEGATIVE) mg/dL Urine Occult Blood (NEGATIVE) Urine Nitrite (NEGATIVE) Urine Bilirubin (NEGATIVE) Urine Urobilinogen (0.2-1.0) E.U./dL Ur Leukocyte Esterase (NEGATIVE) Urine RBC /HPF Urine WBC /HPF Ur Squamous Epith Cells /HPF Med Orders - Current: Current Medications Acetaminophen (Tylenol Arthritis Pain) 650 mg PO BID [facility] Last Admin: 06/18/20 08:37 Dose: 650 mg Documented by: Acetaminophen (Tylenol) 650 mg PO Q4H PRN PRN Reason: Headache Albuterol (Ventolin Hfa) 0 gm INH Q4H PRN PRN Reason: Shortness of Breath Aspirin (Halfprin) 81 mg PO QPM [facility] Last Admin: 06/17/20 20:08 Dose: 81 mg Documented by: Atorvastatin Calcium (Lipitor) 80 mg PO BEDTIME [facility] Last Admin: 06/17/20 20:08 Dose: 80 mg Documented by: Carvedilol (Coreg) 12.5 mg PO BIDMEALS [facility] Last Admin: 06/18/20 08:31 Dose: 12.5 mg Documented by: Diphenhydramine HCl (Benadryl) 50 mg PO BEDTIME [facility] Last Admin: 06/17/20 20:08 Dose: 50 mg Documented by: Ceftriaxone Sodium 1 gm/ (Sodium Chloride) 50 mls @ 200 mls/hr IV Q24H [facility] Last Admin: 06/17/20 16:00 Dose: 200 mls/hr Documented by: Sodium Chloride (Normal Saline) 1,000 mls @ 125 mls/hr IV ASDIRECTED [facility] Last Admin: 06/17/20 19:45 Dose: 125 mls/hr Documented by: Losartan Potassium (Cozaar) 25 mg PO DAILY [facility] Last Admin: 06/18/20 08:29 Dose: 25 mg Documented by: Magnesium Oxide (Magnesium Oxide) 500 mg PO DAILY [facility] Last Admin: 06/18/20 08:31 Dose: 500 mg Documented by: Fluticasone/Umeclidin/Vilanter [ Trelegy Ellipta] 100 -62.5-25mcg 1 each INH DAILY [facility] Multivit-Min/Folic/Vit K/Lycop [Men's Daily Formula] 1 tab PO DAILY [facility] Oxycodone Hcl/Acetaminophen [ Endocet] 7.5-325mg Tablet 1 tab PO Q8H [facility] Potassium [Potassium (] 99mg (2.53meq)) 99 mg PO DAILY [facility] Pantoprazole Sodium (Protonix) 40 mg PO DAILY [facility] Last Admin: 06/18/20 08:29 Dose: 40 mg Documented by: Sodium Chloride (Saline Flush) 10 ml FLUSH ASDIRECTED PRN PRN Reason: Keep Vein Open Spironolactone (Aldactone) 12.5 mg PO DAILY [facility] Last Admin: 06/18/20 08:32 Dose: 12.5 mg Documented by: Trazodone HCl (Trazodone) 150 mg PO QPM [facility] Last Admin: 06/17/20 20:04 Dose: 150 mg Documented by: Discontinued Medications Ceftriaxone Sodium (Rocephin) Confirm Administered Dose 1 gm .ROUTE .[facility] Stop: 06/17/20 15:07 Last Admin: 06/17/20 17:27 Dose: Not Given Documented by: Non-Formulary Medication (Fluticasone/Umeclidin/Vilanter [Trelegy Ellipta 100-62.5-25]) 1 each INH DAILY [facility] - Exam General: Alert, Oriented, Cooperative HEENT: Pupils Equal, Pupils Reactive, EOMI Neck: Supple Lungs: Clear to Auscultation, Normal Respiratory Effort Cardiovascular: Regular Rate, Regular Rhythm GI/Abdominal Exam: Normal Bowel Sounds Back Exam: Normal Inspection Extremities: Normal Inspection Sepsis Event Note - Evaluation Sepsis Screening Result: No Definite Risk - Focused Exam Vital Signs: Vital Signs Temp Temp Pulse Pulse Resp BP BP 06/18/20 08:31 64 151/63 H 06/18/20 08:29 151/63 H 06/18/20 08:00 36.6 C 94 16 151/63 H 06/18/20 04:00 36.6 C 63 18 06/17/20 23:56 36.4 C 65 18 BP Pulse Ox 06/18/20 08:31 06/18/20 08:29 06/18/20 08:00 97 06/18/20 04:00 139/49 L 98 06/17/20 23:56 109/45 L 97 - Problem List & Annotations (1) UTI (urinary tract infection) SNOMED Code(s): 32734340 Code(s): N39.0 - URINARY TRACT INFECTION, SITE NOT SPECIFIED Status: Acute Priority: High Current Visit: Yes Qualifiers: Urinary tract infection type: acute cystitis Hematuria presence: without hematuria Qualified Code(s): N30.00 - Acute cystitis without hematuria (2) Sepsis due to urinary tract infection SNOMED Code(s): 339745252 Code(s): A41.9 - SEPSIS, UNSPECIFIED ORGANISM; N39.0 - URINARY TRACT INFECTION, SITE NOT SPECIFIED Status: Acute Priority: High Current Visit: Yes (3) COPD (chronic obstructive pulmonary disease) SNOMED Code(s): 63713815 Code(s): J44.9 - CHRONIC OBSTRUCTIVE PULMONARY DISEASE, UNSPECIFIED Status: Chronic Priority: High Current Visit: Yes Qualifiers: COPD type: unspecified COPD Qualified Code(s): J44.9 - Chronic obstructive pulmonary disease, unspecified (4) Diabetes SNOMED Code(s): 32762767 Code(s): E11.9 - TYPE 2 DIABETES MELLITUS WITHOUT COMPLICATIONS Status: Chronic Priority: High Current Visit: Yes Qualifiers: Diabetes mellitus type: type 2 (5) Hypertension SNOMED Code(s): 89814049 Code(s): I10 - ESSENTIAL (PRIMARY) HYPERTENSION Status: Chronic Priority: High Current Visit: Yes Qualifiers: Hypertension type: essential hypertension Qualified Code(s): I10 - Essential (primary) hypertension (6) Hyperlipidemia SNOMED Code(s): 63353053 Code(s): E78.5 - HYPERLIPIDEMIA, UNSPECIFIED Status: Acute Priority: High Current Visit: Yes Qualifiers: Hyperlipidemia type: other hyperlipidemia Qualified Code(s): E78.49 - Other hyperlipidemia; E78.4 - Other hyperlipidemia (7) Morbid obesity SNOMED Code(s): 040794198 Code(s): E66.01 - MORBID (SEVERE) OBESITY DUE TO EXCESS CALORIES Status: Chronic Priority: High Current Visit: Yes (8) Shortness of breath SNOMED Code(s): 561703706 Code(s): R06.02 - SHORTNESS OF BREATH Status: Resolved Priority: High Current Visit: Yes Onset Date: ~01/20/17 Annotation/Comment:: 01/20/17 - 1. Hypertension, currently well controlled. 2. Shortness of breath with some concern of mild CHF. (9) CHF (congestive heart failure) SNOMED Code(s): 51738015 Code(s): I50.9 - HEART FAILURE, UNSPECIFIED Status: Chronic Priority: High Current Visit: Yes Onset Date: ~01/20/17 Qualifiers: Heart failure type: diastolic Heart failure chronicity: chronic Qualified Code(s): I50.32 - Chronic diastolic (congestive) heart failure Annotation/Comment:: 01/20/17 - 1. Hypertension, currently well controlled. 2. Shortness of breath with some concern of mild CHF. (10) Acute on chronic renal insufficiency SNOMED Code(s): 637812443 Code(s): N28.9 - DISORDER OF KIDNEY AND URETER, UNSPECIFIED; N18.9 - CHRONIC KIDNEY DISEASE, UNSPECIFIED Status: Resolved Priority: High Current Visit: Yes (11) Headache SNOMED Code(s): 94391548 Code(s): R51 - HEADACHE Status: Acute Priority: Low Current Visit: Yes - Problem List Review Problem List Initiated/Reviewed/Updated: Yes - My Orders Last 24 Hours: My Active Orders 06/17/20 13:15 CULTURE URINE [RM] Stat 06/17/20 14:29 Patient Status [ADT] Routine Oxygen Therapy [RC] PRN VTE/DVT Education [RC] Per Unit Routine Vital Signs [RC] 08,12,16,20,00,04 CULTURE BLOOD [BC] Stat Sodium Chloride 0.9% [Saline Flush] 10 ml FLUSH ASDIRECTED PRN Peripheral IV Insertion Adult [OM.PC] Routine Resuscitation Status Routine 06/17/20 15:00 cefTRIAXone [Rocephin] 1 gm Sodium Chloride 0.9% [Normal Saline] 50 ml IV Q24H 06/17/20 16:06 CULTURE MRSA SURVEY [RM] Routine 06/17/20 16:43 RT Post Treatment Assessment [RC] Click to Edit Albuterol [Ventolin HFA] 0 gm INH Q4H PRN 06/17/20 16:45 oxyCODONE HCl/Acetaminophen [Endocet 7.5-325 mg Tablet] 1 tab PO Q8H 06/17/20 Dinner Heart Healthy Diet [DIET] 06/17/20 19:00 Sodium Chloride 0.9% [Normal Saline] 1,000 ml IV ASDIRECTED 06/17/20 20:00 Acetaminophen [Tylenol Arthritis Pain] 650 mg PO BID Aspirin [Halfprin] 81 mg PO QPM atorvaSTATin [Lipitor] 80 mg PO BEDTIME carvediloL [Coreg] 12.5 mg PO BIDMEALS diphenhydrAMINE [Benadryl] 50 mg PO BEDTIME traZODone 150 mg PO QPM 06/18/20 08:00 Fluticasone/Umeclidin/Vilanter [Trelegy Ellipta 100-62.5-25] 1 each INH DAILY Losartan [Cozaar] 25 mg PO DAILY Magnesium Oxide 500 mg PO DAILY Multivit-Min/Folic/Vit K/Lycop [Men's Daily Formula Tablet] 1 tab PO DAILY Pantoprazole [ProTONIX] 40 mg PO DAILY Potassium [Potassium] 99 mg PO DAILY Spironolactone [Aldactone] 12.5 mg PO DAILY 06/18/20 09:34 Acetaminophen [TylenoL] 650 mg PO Q4H PRN 06/19/20 05:11 CBC WITH AUTO DIFF [HEME] AM COMPREHENSIVE METABOLIC PN,CMP [CHEM] AM - Plan Plan:: Patient admitted for Urosepsis and management of chronic concerns. Placed on IV Rocephin and will f/u labs in the AM. Patient IN/Out to be monitored due to acute on chronic renal insufficiency. We gently hydrate. COPD management - continue home meds. CHF - No changes - close monitoring of hydration so as not to fluid overload. HTN - controlled on home meds. HLP - continue home meds. 06/18/20 Urosepsis - repeat labs in AM, improved WBC, continue antibiotics. Renal insufficiency - resolved COPD - continue current management and home meds CHF - no changes HTN controlled. HLP - continue home meds. Headache - tylenol and then excedrin if needed.
[2020-06-18] MEDS ORDERED: Acetaminophen/oxyCODONE 325-5 MG Tab PO PRN (11:23)
[2020-06-18] MEDS: Formoterol/Mometasone 200-5 MCG 8.8 GM Inhaler IH SCH ×2 (14:28→19:41)
[2020-06-18] MEDS: Tiotropium Inhaler 18 MCG Inhalation Powder Cap Kit of 5 INH SCH (14:31)
[2020-06-18] MEDS: cefTRIAXone 1 GM in Sodium Chloride 0.9% 50 ML IV SCH (15:36)
[2020-06-18] MEDS: Sodium Chloride 0.9% 1,000 ML IV SCH (17:22)
[2020-06-18] MEDS: Aspirin 81 MG Tab.EC PO SCH (19:39)
[2020-06-18] MEDS: atorvaSTATin 80 MG Tab PO SCH (19:39)
[2020-06-18] MEDS: diphenhydrAMINE 50 MG Cap PO SCH (19:39)
[2020-06-18] MEDS: traZODone 50 MG Tab PO SCH (19:52)
[2020-06-19] MEDS: Sodium Chloride 0.9% 1,000 ML IV SCH ×2 (01:59→10:59)
[2020-06-19] MEDS: Tiotropium Inhaler 18 MCG Inhalation Powder Cap Kit of 5 INH SCH (08:36)
[2020-06-19] MEDS: Carvedilol 6.25 MG Tab PO SCH ×2 (08:37→17:24)
[2020-06-19] MEDS: Acetaminophen 650 MG Tab.ER PO SCH ×2 (08:37→21:37)
[2020-06-19] MEDS: Pantoprazole 40 MG Tab.CR PO SCH (08:37)
[2020-06-19] MEDS: Formoterol/Mometasone 200-5 MCG 8.8 GM Inhaler IH SCH ×2 (08:37→21:38)
[2020-06-19] MEDS: Losartan 25 MG Tab PO SCH (08:38)
[2020-06-19] MEDS: Multivitamins with Iron/Calcium/Folic Acid/Minerals Tab PO SCH (08:38)
[2020-06-19] MEDS: Spironolactone 25 MG Tab PO SCH (08:39)
--- NOTE | 2020-06-19 11:03 | PCM.PN ---
- General Info Date of Service: 06/19/20 Subjective Update: Patient notes minimal changes. Denies any fever or chills, no chest pain or shortness of breath. He feels ok he states and notes he feels much better since prior to admission. - Review of Systems General: Reports: Weakness HEENT: Reports: No Symptoms Pulmonary: Reports: No Symptoms Cardiovascular: Reports: No Symptoms Gastrointestinal: Reports: No Symptoms Genitourinary: Reports: Frequency Musculoskeletal: Reports: No Symptoms Skin: Reports: No Symptoms Neurological: Reports: No Symptoms - Patient Data Vitals - Most Recent: Last Vital Signs Temp 36.5 C 06/19/20 04:00 Pulse 67 06/19/20 08:37 Resp 16 06/19/20 04:00 BP 157/52 H 06/19/20 08:38 Pulse Ox 99 06/19/20 04:00 Weight - Most Recent: 115.723 kg I&O - Last 24 Hours: Intake & Output 06/18/20 06/19/20 06/19/20 22:59 06:59 14:59 Intake Total 840 1850 Output Total 800 1350 Balance 40 500 Lab Results Last 24 Hours: Laboratory Results - last 24 hr 06/19/20 06/19/20 Range/Units 07:00 07:00 WBC 14.9 H (4.0-11.0) K/uL RBC 4.65 (4.50-6.50) M/uL Hgb 13.7 (13.0-18.0) g/dL Hct 41.2 (40.0-54.0) % MCV 89 (76-96) fL MCH 29.5 (27.0-32.0) pg MCHC 33.3 (31.0-35.0) g/dL RDW 14.2 (11.0-16.0) % Plt Count 223 (150-400) K/uL MPV 10.0 (6.0-10.0) fL Neut % (Auto) 89.1 H (45.0-70.0) % Lymph % (Auto) 5.5 L (20.0-40.0) % [place] % (Auto) 4.8 (3.0-10.0) % Eos % (Auto) 0.3 L (1.0-5.0) % Baso % (Auto) 0.3 (0.0-0.5) % Neut # (Auto) 13.25 H (2.00-7.50) K/uL Lymph # (Auto) 0.82 L (1.50-4.00) K/uL [place] # (Auto) 0.72 (0.20-0.80) K/uL Eos # (Auto) 0.04 (0.04-0.40) K/uL Baso # (Auto) 0.04 (0.02-0.10) K/uL Sodium 138 (136-145) mmol/L Potassium 4.6 (3.5-5.1) mmol/L Chloride 105 (98-107) mmol/L Carbon Dioxide 21.9 (21.0-32.0) mmol/L Anion Gap 15.7 H (5.0-15.0) mmol/L BUN 22 (8-26) mg/dL Creatinine 1.38 H (0.70-1.30) mg/dL Est Cr Clr Drug Dosing 47.50 mL/min Estimated GFR (MDRD) 51 L (>60) MLS/MIN BUN/Creatinine Ratio 15.9 (6-25) Glucose 284 H (74-100) mg/dL Calcium 7.6 L (8.5-10.1) mg/dL Total Bilirubin 0.6 (0.0-1.0) mg/dL AST 27 (15-37) U/L ALT 53 (12-78) U/L Alkaline Phosphatase 66 (46-116) U/L Total Protein 6.0 L (6.4-8.2) g/dL Albumin 2.7 L (3.4-5.0) g/dL Globulin 3.3 (2.2-4.2) g/dL Albumin/Globulin Ratio 0.8 (0.8-2.0) Roe Results Last 24 Hours: Microbiology 06/17/20 13:15 Urine Culture - Final Urine, Bladder MIXED ZEFERINO SUGGESTIVE OF CONTAMINATION. 06/17/20 16:06 MRSA Surveillance Culture - Final Nares, Right NO MRSA ISOLATED Med Orders - Current: Current Medications Acetaminophen (Tylenol Arthritis Pain) 650 mg PO BID VIVEK Last Admin: 06/19/20 08:37 Dose: 650 mg Documented by: Acetaminophen (Tylenol) 650 mg PO Q4H PRN PRN Reason: Headache Last Admin: 06/19/20 05:38 Dose: 650 mg Documented by: Albuterol (Ventolin Hfa) 0 gm INH Q4H PRN PRN Reason: Shortness of Breath Aspirin (Halfprin) 81 mg PO QPM [facility] Last Admin: 06/18/20 19:39 Dose: 81 mg Documented by: Atorvastatin Calcium (Lipitor) 80 mg PO BEDTIME [facility] Last Admin: 06/18/20 19:39 Dose: 80 mg Documented by: Carvedilol (Coreg) 12.5 mg PO BIDMEALS [facility] Last Admin: 06/19/20 08:37 Dose: 12.5 mg Documented by: Diphenhydramine HCl (Benadryl) 50 mg PO BEDTIME [facility] Last Admin: 06/18/20 19:39 Dose: 50 mg Documented by: Ceftriaxone Sodium 1 gm/ (Sodium Chloride) 50 mls @ 200 mls/hr IV Q24H [facility] Last Admin: 06/18/20 15:36 Dose: 200 mls/hr Documented by: Sodium Chloride (Normal Saline) 1,000 mls @ 125 mls/hr IV ASDIRECTED [facility] Last Admin: 06/19/20 10:59 Dose: 125 mls/hr Documented by: Losartan Potassium (Cozaar) 25 mg PO DAILY [facility] Last Admin: 06/19/20 08:38 Dose: 25 mg Documented by: Magnesium Oxide (Magnesium Oxide) 500 mg PO DAILY [facility] Last Admin: 06/19/20 10:23 Dose: Not Given Documented by: Mometasone Furoate/Formoterol Fumar (Dulera 200-5 Mcg) 2 puff IH BID [facility] Last Admin: 06/19/20 08:37 Dose: 2 puff Documented by: Multivitamins/Minerals (Thera M Plus) 1 tab PO DAILY [facility] Last Admin: 06/19/20 08:38 Dose: 1 tab Documented by: Potassium [Potassium (] 99mg (2.53meq)) 99 mg PO DAILY [facility] Oxycodone/Acetaminophen (Percocet 325-5 Mg) 1.5 tab PO Q8H PRN PRN Reason: Pain (severe 7-10) Last Admin: 06/18/20 11:47 Dose: 1.5 tab Documented by: Pantoprazole Sodium (Protonix) 40 mg PO DAILY [facility] Last Admin: 06/19/20 08:37 Dose: 40 mg Documented by: Sodium Chloride (Saline Flush) 10 ml FLUSH ASDIRECTED PRN PRN Reason: Keep Vein Open Spironolactone (Aldactone) 12.5 mg PO DAILY [facility] Last Admin: 06/19/20 08:39 Dose: 12.5 mg Documented by: Tiotropium [place] (Spiriva Handihaler) 18 mcg INH DAILY [facility] Last Admin: 06/19/20 08:36 Dose: 1 unit Documented by: Trazodone HCl (Trazodone) 150 mg PO QPM [facility] Last Admin: 06/18/20 19:52 Dose: 150 mg Documented by: Discontinued Medications Ceftriaxone Sodium (Rocephin) Confirm Administered Dose 1 gm .ROUTE .STK-MED ONE Stop: 06/17/20 15:07 Last Admin: 06/17/20 17:27 Dose: Not Given Documented by: Non-Formulary Medication (Fluticasone/Umeclidin/Vilanter [Trelegy Ellipta 10 0-62.5-25]) 1 each INH DAILY [facility] - Exam General: Alert, Oriented, Cooperative HEENT: Pupils Equal, Pupils Reactive, EOMI Neck: Supple Lungs: Clear to Auscultation, Normal Respiratory Effort Cardiovascular: Regular Rate, Regular Rhythm GI/Abdominal Exam: Normal Bowel Sounds Back Exam: Normal Inspection Extremities: Normal Inspection Sepsis Event Note - Evaluation Sepsis Screening Result: No Definite Risk - Focused Exam Vital Signs: Vital Signs Temp Pulse Pulse Resp BP BP Pulse Ox 06/19/20 08:38 157/52 H 06/19/20 08:37 67 157/52 H 06/19/20 04:00 36.5 C 65 16 157/64 H 99 06/19/20 00:00 36.9 C 69 16 131/64 97 - Problem List & Annotations (1) UTI (urinary tract infection) SNOMED Code(s): 85435722 Code(s): N39.0 - URINARY TRACT INFECTION, SITE NOT SPECIFIED Status: Acute Priority: High Current Visit: Yes Qualifiers: Urinary tract infection type: acute cystitis Hematuria presence: without hematuria Qualified Code(s): N30.00 - Acute cystitis without hematuria (2) Sepsis due to urinary tract infection SNOMED Code(s): 034660149 Code(s): A41.9 - SEPSIS, UNSPECIFIED ORGANISM; N39.0 - URINARY TRACT INFECTION, SITE NOT SPECIFIED Status: Acute Priority: High Current Visit: Yes (3) COPD (chronic obstructive pulmonary disease) SNOMED Code(s): 99154929 Code(s): J44.9 - CHRONIC OBSTRUCTIVE PULMONARY DISEASE, UNSPECIFIED Status: Chronic Priority: High Current Visit: Yes Qualifiers: COPD type: unspecified COPD Qualified Code(s): J44.9 - Chronic obstructive pulmonary disease, unspecified (4) Diabetes SNOMED Code(s): 21226592 Code(s): E11.9 - TYPE 2 DIABETES MELLITUS WITHOUT COMPLICATIONS Status: Chronic Priority: High Current Visit: Yes Qualifiers: Diabetes mellitus type: type 2 (5) Hypertension SNOMED Code(s): 34945535 Code(s): I10 - ESSENTIAL (PRIMARY) HYPERTENSION Status: Chronic Priority: High Current Visit: Yes Qualifiers: Hypertension type: essential hypertension Qualified Code(s): I10 - Essential (primary) hypertension (6) Hyperlipidemia SNOMED Code(s): 76545100 Code(s): E78.5 - HYPERLIPIDEMIA, UNSPECIFIED Status: Acute Priority: High Current Visit: Yes Qualifiers: Hyperlipidemia type: other hyperlipidemia Qualified Code(s): E78.49 - Other hyperlipidemia; E78.4 - Other hyperlipidemia (7) Morbid obesity SNOMED Code(s): 683799138 Code(s): E66.01 - MORBID (SEVERE) OBESITY DUE TO EXCESS CALORIES Status: Chronic Priority: High Current Visit: Yes (8) Shortness of breath SNOMED Code(s): 781582938 Code(s): R06.02 - SHORTNESS OF BREATH Status: Resolved Priority: High Current Visit: Yes Onset Date: ~01/20/17 Annotation/Comment:: 01/20/17 - 1. Hypertension, currently well controlled. 2. Shortness of breath with some concern of mild CHF. (9) CHF (congestive heart failure) SNOMED Code(s): 07341672 Code(s): I50.9 - HEART FAILURE, UNSPECIFIED Status: Chronic Priority: High Current Visit: Yes Onset Date: ~01/20/17 Qualifiers: Heart failure type: diastolic Heart failure chronicity: chronic Qualified Code(s): I50.32 - Chronic diastolic (congestive) heart failure Annotation/Comment:: 01/20/17 - 1. Hypertension, currently well controlled. 2. Shortness of breath with some concern of mild CHF. (10) Acute on chronic renal insufficiency SNOMED Code(s): 988767166 Code(s): N28.9 - DISORDER OF KIDNEY AND URETER, UNSPECIFIED; N18.9 - CHRONIC KIDNEY DISEASE, UNSPECIFIED Status: Resolved Priority: High Current Visit: Yes (11) Headache SNOMED Code(s): 88410206 Code(s): R51 - HEADACHE Status: Acute Priority: Low Current Visit: Yes - Problem List Review Problem List Initiated/Reviewed/Updated: Yes - My Orders Last 24 Hours: My Active Orders 06/18/20 11:23 Acetaminophen/oxyCODONE [Percocet 325-5 MG] 1.5 tab PO Q8H PRN 06/18/20 11:50 RT Post Treatment Assessment [RC] Click to Edit 06/18/20 12:00 Mometasone/Formoterol [Dulera 200-5 MCG] 2 puff IH BID Tiotropium [Spiriva HandiHaler] 18 mcg INH DAILY 06/19/20 08:00 Multivitamins w-Iron/Ca/FA/Min [Thera M Plus] 1 tab PO DAILY 06/20/20 05:11 BASIC METABOLIC PANEL,BMP [CHEM] AM CBC WITH AUTO DIFF [HEME] AM - Plan Plan:: Patient admitted for Urosepsis and management of chronic concerns. Placed on IV Rocephin and will f/u labs in the AM. Patient IN/Out to be monitored due to acute on chronic renal insufficiency. We gently hydrate. COPD management - continue home meds. CHF - No changes - close monitoring of hydration so as not to fluid overload. HTN - controlled on home meds. HLP - continue home meds. 06/18/20 Urosepsis - repeat labs in AM, improved WBC, continue antibiotics. Renal insufficiency - resolved COPD - continue current management and home meds CHF - no changes HTN controlled. HLP - continue home meds. Headache - tylenol and then excedrin if needed. 06/19/20 Urosepsis - repeat labs in AM, improved WBC, continue antibiotics. If normalizes or near normal in the next day or two then consider discharge with oral antibiotics course. Renal insufficiency - resolved but now Creatinine elevated - will hydrate and recheck in AM. COPD - continue current management and home meds CHF - no changes HTN controlled. HLP - continue home meds. Headache - tylenol and then excedrin if needed. Follow up labs in AM and consider d/c on home antibiotics if WBC close to normal and no symptoms.
[2020-06-19] MEDS: cefTRIAXone 1 GM in Sodium Chloride 0.9% 50 ML IV SCH (14:53)
[2020-06-19] MEDS: Aspirin 81 MG Tab.EC PO SCH (21:37)
[2020-06-19] MEDS: traZODone 50 MG Tab PO SCH (21:37)
[2020-06-19] MEDS: atorvaSTATin 80 MG Tab PO SCH (21:38)
[2020-06-19] MEDS: diphenhydrAMINE 50 MG Cap PO SCH (21:38)
[2020-06-20] MEDS: Carvedilol 6.25 MG Tab PO SCH ×2 (08:24→17:17)
[2020-06-20] MEDS: Pantoprazole 40 MG Tab.CR PO SCH (08:26)
[2020-06-20] MEDS: Acetaminophen 650 MG Tab.ER PO SCH ×2 (08:26→20:04)
[2020-06-20] MEDS: Tiotropium Inhaler 18 MCG Inhalation Powder Cap Kit of 5 INH SCH (08:27)
[2020-06-20] MEDS: Spironolactone 25 MG Tab PO SCH (08:27)
[2020-06-20] MEDS: Losartan 25 MG Tab PO SCH (08:27)
[2020-06-20] MEDS: Multivitamins with Iron/Calcium/Folic Acid/Minerals Tab PO SCH (08:28)
[2020-06-20] MEDS: Formoterol/Mometasone 200-5 MCG 8.8 GM Inhaler IH SCH ×2 (08:29→20:04)
--- NOTE | 2020-06-20 12:29 | PCM.CONS ---
H&P History of Present Illness - General Date of Service: 06/20/20 Admit Problem/Dx: Admission Diagnosis/Problem Admission Diagnosis/Problem Urosepsis Source of Information: Patient, RN History Limitations: Reports: No Limitations - History of Present Illness Initial Comments - Free Text/Narative: This is a 70 yo man with h/o DM, CAD, CHF, SSS s/p PPM placed about a year ago, CKD who presented to the hospital approximately 2 D ago with c/o weakness and urinary frequency. Pt notes h/o nocturia X 2-3 per night. Notes that it has gotten worse over the past 7-10 days though is better today. Also notes some intermittent pain on L flank. No h/o stones. No h/o bladder infection. Notes some loss of bladder control while at work--not able to make it to the bathroom at times. No cough prod of sputum. Does have cOPD but symptoms are not worse than usual. CXR was negative for infection. NO recent car trips or prolonged sitting. UA showed 0-5 WBCs. Blood cultures negative. - Related Data Allergies/Adverse Reactions: Allergies Allergy/AdvReac Type Severity Reaction Status Date / Time No Known Allergies Allergy Verified 04/02/20 12:33 Home Medications: Home Meds Aspirin [Ecotrin EC] 81 mg PO QPM 01/20/17 [History] Losartan Potassium 25 mg PO DAILY 01/20/17 [History] Spironolactone [Aldactone] 12.5 mg PO DAILY 01/20/17 [History] carvediloL [Carvedilol] 12.5 mg PO BID 01/20/17 [History] traZODone 150 mg PO QPM 01/20/17 [History] Albuterol [Ventolin HFA] 1 puff INH Q4H PRN 02/09/18 [History] Magnesium 2 tab PO DAILY 02/09/18 [History] Multivit-Min/Folic/Vit K/Lycop [Men's Daily Formula Tablet] 1 tab PO DAILY 02/09/18 [History] Omeprazole [priLOSEC OTC] 20 mg PO DAILY 02/09/18 [History] Potassium 99 mg PO DAILY 02/09/18 [History] diphenhydrAMINE HCL [Diphenhydramine HCl] 50 mg PO BEDTIME 02/09/18 [History] Acetaminophen [Tylenol Arthritis] 650 mg PO BID 08/04/19 [History] Fluticasone/Umeclidin/Vilanter [Trelegy Ellipta 100-62.5-25] 1 each INH DAILY 08/04/19 [History] Fluticasone/Umeclidin/Vilanter [Trelegy Ellipta 100-62.5-25] 1 each INH DAILY 06/17/20 [History] atorvaSTATin [Lipitor] 80 mg PO BEDTIME 06/17/20 [History] oxyCODONE HCl/Acetaminophen [Endocet 7.5-325 mg Tablet] 1 tab PO Q8H 06/17/20 [History] Past Medical History HEENT History: Reports: Hard of Hearing Cardiovascular History: Reports: Bypass, High Cholesterol, Hypertension, IN, Pacemaker, SOB on Exertion Respiratory History: Reports: Asthma, COPD, Pneumonia, Recurrent, SOB Gastrointestinal History: Reports: GERD Genitourinary History: Reports: Renal Calculus, Renal Disease Musculoskeletal History: Reports: Back Pain, Chronic, Fracture, Osteoarthritis Other Musculoskeletal History: R Leg pain, 2 broken wrists, left leg fracture Neurological History: Reports: Other (See Below) Other Neuro History: numb in R forearm into 3-4-5 fingers since back sugjun Psychiatric History: Reports: None Endocrine/Metabolic History: Reports: None, Diabetes, Type II, Other (See Below) Other Endocrine/Metabolic History: pre-diabetic Hematologic History: Reports: None Immunologic History: Reports: None Oncologic (Cancer) History: Reports: None Dermatologic History: Reports: Cellulitis - Infectious Disease History Infectious Disease History: Reports: Chicken Pox - Past Surgical History Cardiovascular Surgical History: Reports: Coronary Artery Bypass, Coronary Artery Stent GI Surgical History: Reports: Colonoscopy Other GI Surgeries/Procedures: Reason for colonoscopy:Blood in stool-02/09/18 Other Endocrine Surgeries/Procedures: patient feels possibly a mild form of Diabetes type 2 Neurological Surgical History: Reports: Lumbar Spine, Spinal Fusion Social & Family History - Family History Family Medical History: Noncontributory Musculoskeletal: Reports: Back pain, Chronic Endocrine/Metabolic: Reports: Diabetes, type II, IDDM Oncologic: Reports: Breast - Tobacco Use Smoking Status *Q: Former Smoker Used Tobacco, but Quit: No - Caffeine Use Caffeine Use: Reports: Coffee - Recreational Drug Use Recreational Drug Use: No - Living Situation & Occupation Living situation: Reports: Occupation: Employed H&P Review of Systems - Review of Systems: Review Of Systems: See Below General: Reports: Weakness, Fatigue. Denies: Night Sweats HEENT: Denies: Dysphasia, Sinus Congestion Pulmonary: Reports: Shortness of Breath. Denies: Wheezing, Pleuritic Chest Pain Cardiovascular: Reports: Dyspnea on Exertion. Denies: Palpitations, Orthopnea, PND Gastrointestinal: Denies: Abdominal Pain, Black Stool, Bloody Stool, Constipation Genitourinary: Reports: Frequency, Urgency, Incontinence, Flank Pain. Denies: Dysuria, Burning, Pain, Hematuria, Discharge Exam - Exam Exam: See Below - Vital Signs Vital Signs: Last Vital Signs Temp 36.2 C 06/20/20 08:00 Pulse 82 06/20/20 08:24 Resp 16 06/20/20 08:00 BP 136/61 06/20/20 08:27 Pulse Ox 98 06/20/20 08:00 Weight: 115.666 kg - Exam General: Alert, Oriented, Cooperative HEENT: Mucosa Moist & [place], Posterior Pharynx Clear Neck: Trachea Midline Lungs: Clear to Auscultation, Normal Respiratory Effort. No: Rhonchi, Rub Cardiovascular: Regular Rate, Regular Rhythm, Normal S1, Normal S2 GI/Abdominal Exam: Normal Bowel Sounds, Soft, Non-Tender (per bedside nursing exam.) Skin: Warm, Dry, Intact Neurological: Cranial Nerves Intact Neuro Extensive - Mental Status: Alert, Oriented x3, Normal Mood/Affect, Normal Cognition, Memory Intact - Patient Data Lab Results Last 24 hrs: Laboratory Results - last 24 hr 06/20/20 06/20/20 Range/Units 09:30 09:30 WBC 16.6 H (4.0-11.0) K/uL RBC 5.00 (4.50-6.50) M/uL Hgb 14.7 (13.0-18.0) g/dL Hct 44.0 (40.0-54.0) % MCV 88 (76-96) fL MCH 29.4 (27.0-32.0) pg MCHC 33.4 (31.0-35.0) g/dL RDW 14.4 (11.0-16.0) % Plt Count 231 (150-400) K/uL MPV 9.5 (6.0-10.0) fL Neut % (Auto) 88.5 H (45.0-70.0) % Lymph % (Auto) 6.1 L (20.0-40.0) % [place] % (Auto) 4.8 (3.0-10.0) % Eos % (Auto) 0.2 L (1.0-5.0) % Baso % (Auto) 0.4 (0.0-0.5) % Neut # (Auto) 14.69 H (2.00-7.50) K/uL Lymph # (Auto) 1.01 L (1.50-4.00) K/uL [place] # (Auto) 0.79 (0.20-0.80) K/uL Eos # (Auto) 0.04 (0.04-0.40) K/uL Baso # (Auto) 0.07 (0.02-0.10) K/uL Sodium 135 L (136-145) mmol/L Potassium 4.5 (3.5-5.1) mmol/L Chloride 102 (98-107) mmol/L Carbon Dioxide 21.1 (21.0-32.0) mmol/L Anion Gap 16.4 H (5.0-15.0) mmol/L BUN 23 (8-26) mg/dL Creatinine 1.39 H (0.70-1.30) mg/dL Est Cr Clr Drug Dosing 47.16 mL/min Estimated GFR (MDRD) 50 L (>60) MLS/MIN BUN/Creatinine Ratio 16.5 (6-25) Glucose 321 H (74-100) mg/dL Calcium 8.2 L (8.5-10.1) mg/dL Result Diagrams: 06/20/20 09:30 06/20/20 09:30 Danny Results Last 24 hrs: Microbiology 06/17/20 15:15 Aerobic Blood Culture - Preliminary Blood NO GROWTH AFTER 2 DAYS Anaerobic Blood Culture - Preliminary NO GROWTH AFTER 2 DAYS 06/17/20 13:15 Urine Culture - Final Urine, Bladder MIXED ZEFERINO SUGGESTIVE OF CONTAMINATION. 06/17/20 16:06 MRSA Surveillance Culture - Final Nares, Right NO MRSA ISOLATED Sepsis Event Note - Evaluation Sepsis Screening Result: No Definite Risk - Focused Exam Vital Signs: Vital Signs Temp Pulse Pulse Resp BP BP Pulse Ox 06/20/20 08:27 136/61 06/20/20 08:24 82 136/61 06/20/20 08:00 36.2 C 82 16 136/61 98 06/20/20 04:00 36.9 C 98 18 140/86 97 Consult PN Assessment/Plan Procedures: Procedures ALANINE AMINO (ALT) (SGPT) (11/14/14) ASSAY OF CREATININE (07/04/13) ASSAY OF LACTIC ACID (08/04/19) ASSAY OF LIPASE (08/04/19) ASSAY OF NATRIURETIC PEPTIDE (09/22/19) ASSAY OF TROPONIN QUANT (08/21/19) ASSAY OF UREA NITROGEN (07/04/13) ASSAY OF VANCOMYCIN (09/23/15) C DIFF AMPLIFIED PROBE (08/04/19) CARDIAC REHAB/MONITOR (01/06/16) CARDIOVASCULAR STRESS TEST (10/26/15) CARDIOVASCULAR STRESS TEST (10/26/15) CARDIOVASCULAR STRESS TEST (10/26/15) CHEST X-RAY 1 VIEW FRONTAL (01/20/17) CHEST X-RAY 2VW FRONTAL&LATL (11/03/15) COLONOSCOPY AND BIOPSY (02/09/18) COMPLETE CBC W/AUTO DIFF WBC (11/21/19) COMPREHEN METABOLIC PANEL (11/21/19) CT THORAX W/DYE (09/23/15) CULTURE AEROBIC IDENTIFY (09/23/15) CULTURE OTHR SPECIMN AEROBIC (09/23/15) ELECTROCARDIOGRAM TRACING (08/21/19) EMERGENCY DEPT VISIT (04/02/20) EMERGENCY DEPT VISIT (09/22/19) EMERGENCY DEPT VISIT (04/03/18) EMERGENCY DEPT VISIT (11/03/15) EMERGENCY DEPT VISIT (05/15/15) EXTREMITY STUDY (05/15/15) FIBRIN DEGRADATION QUANT (09/23/15) FLUOROGUIDE FOR SPINE INJECT (02/11/15) GLUCOSE BLOOD TEST (09/22/19) GLYCOSYLATED HEMOGLOBIN TEST (01/30/19) HEPATITIS B SURFACE AG IA (03/25/19) HEPATITIS C AB TEST (03/25/19) HIV-1 AG W/HIV-1 & HIV-2 AB (03/25/19) HT MUSCLE IMAGE SPECT MULT (10/26/15) HYDRATE IV INFUSION ADD-ON (08/04/19) INFLUENZA ASSAY W/OPTIC (09/22/19) INJECT SPINE LUMBAR/SACRAL (02/11/15) LIPID PANEL (01/30/19) MANUAL THERAPY 1/> REGIONS (06/01/16) METABOLIC PANEL TOTAL CA (08/04/19) MICROBE SUSCEPTIBLE DANNY (09/23/15) MRI LUMBAR SPINE W/O & W/DYE (02/23/17) MRI LUMBAR SPINE W/O DYE (02/03/15) PROTHROMBIN TIME (01/20/17) PT EVAL LOW COMPLEX 20 MIN (04/14/17) PT EVALUATION (05/10/16) PT RE-EVALUATION (10/14/15) ROUTINE VENIPUNCTURE (11/21/19) SMEAR GRAM STAIN (09/23/15) THER/PROPH/DIAG INJ IV PUSH (08/04/19) THER/PROPH/DIAG INJ SC/IM (04/02/20) THERAPEUTIC EXERCISES (04/14/17) TISSUE EXAM BY PATHOLOGIST (05/27/19) TRANSFERASE (AST) (SGOT) (11/14/14) TTE W/DOPPLER COMPLETE (05/16/18) TX/PRO/DX INJ NEW DRUG ADDON (08/04/19) TX/PRO/DX INJ SAME DRUG RESOURCE DIRECTOR (08/04/19) ULTRASOUND THERAPY (06/01/16) UR ALBUMIN QUANTITATIVE (07/30/13) URINALYSIS AUTO W/SCOPE (11/21/19) URINE CULTURE/COLONY COUNT (11/21/19) US ABDL AORTA SCREEN AAA (03/26/19) X-RAY EXAM ABDOMEN 1 VIEW (08/04/19) X-RAY EXAM CHEST 1 VIEW (09/22/19) X-RAY EXAM CHEST 2 VIEWS (01/30/19) X-RAY EXAM COMPLETE ABDOMEN (08/21/19) X-RAY EXAM L-S SPINE 2/3 VWS (04/02/20) X-RAY EXAM OF ELBOW (09/23/15) X-RAY EXAM OF FOOT (01/30/19) X-RAY EXAM OF HIPS (01/12/15) X-RAY EXAM OF PELVIS (01/27/15) X-RAY EXAM SI JOINTS (04/12/16) X-RAY EXAM UNILAT RIBS/CHEST (04/03/18) (1) Frequency of urination SNOMED Code(s): 084370107 Code(s): R35.0 - FREQUENCY OF MICTURITION Current Visit: Yes Assessment:: * WBC count is out of proportion to severity of WBCs found on UA. * Could be prostate * Will need to r/o * Stone--Non-con CT to eval for stone and eval for hydro. Unable to get US on site today. * Prostatitis--start Levaquin and D/C CFTX * Repeat UA * Check PVRs * If PVRs >150, consider temporary briseno and start flomax. Problem List Initiated/Reviewed/Updated: Yes My Orders Last 24 Hours: My Active Orders 06/20/20 12:18 UA W/MICROSCOPIC [URIN] Stat 06/20/20 12:19 Abdomen Pelvis wo Cont [CT] Routine 06/20/20 12:22 Post Void Residual [OM.PC] Routine 06/20/20 12:30 levoFLOXacin [Levaquin] 500 mg PO Q24H
[2020-06-20] MEDS: Levofloxacin 500 MG Tab PO SCH (14:48)
[2020-06-20] MEDS: Aspirin 81 MG Tab.EC PO SCH (20:04)
[2020-06-20] MEDS: diphenhydrAMINE 50 MG Cap PO SCH (20:04)
[2020-06-20] MEDS: atorvaSTATin 80 MG Tab PO SCH (20:05)
[2020-06-20] MEDS: traZODone 50 MG Tab PO SCH (20:05)
[2020-06-21] MEDS: Tiotropium Inhaler 18 MCG Inhalation Powder Cap Kit of 5 INH SCH (08:00)
[2020-06-21] MEDS: Formoterol/Mometasone 200-5 MCG 8.8 GM Inhaler IH SCH (08:00)
[2020-06-21 08:02] VITALS: PULSE 69
[2020-06-21] MEDS: Carvedilol 6.25 MG Tab PO SCH (08:08)
[2020-06-21] MEDS: Acetaminophen 650 MG Tab.ER PO SCH (08:08)
[2020-06-21] MEDS: Losartan 25 MG Tab PO SCH (08:09)
[2020-06-21] MEDS: Spironolactone 25 MG Tab PO SCH (08:09)
[2020-06-21] MEDS: Multivitamins with Iron/Calcium/Folic Acid/Minerals Tab PO SCH (08:09)
[2020-06-21 08:10] VITALS: BP 169/66
[2020-06-21] MEDS: Pantoprazole 40 MG Tab.CR PO SCH (08:10)
--- NOTE | 2020-06-21 08:10 | CT ---
DATE OF SERVICE: 06/20/20 CLINICAL DATA: flank pain UNENHANCED ABDOMEN AND PELVIC CT: Multislice acquisition through the abdomen and pelvis without IV or oral contrast was performed. No priors. The lung bases are clear. The patient is status post median sternotomy. There are cardiac pacer wires in place. There is mild diffuse fatty infiltration of the liver. No focal hepatic lesions. There is hyperdense material within the dependent gallbladder, consistent with multiple small gallstones. No pericholecystic fluid. The spleen appears normal. The pancreas appears normal. The right and left adrenals appear normal. There is mild atrophy of both kidneys. There is perinephric fat stranding bilaterally. This is nonspecific. Probably related to aging. No nephrocalcinosis or nephrolithiasis. No hydronephrosis or hydroureter. The bladder is partially fluid filled. It appears normal. The appendix is not dilated. No evidence of appendicitis. No free air. No free fluid. No dilated loops of bowel. No adenopathy. No aortic aneurysm. There is degenerative disc disease throughout the lower thoracic and lumbar spine. The patient is status post L5-S1 laminectomy. There is internal fixation of L5 and S1 with metal rods and pedicle screws. [id number] [facility]
--- NOTE | 2020-06-21 09:58 | PCM.PN ---
- General Info Date of Service: 06/21/20 Admission Dx/Problem (Free Text): Admission Diagnosis/Problem Admission Diagnosis/Problem Urosepsis Subjective Update: Patient notes minimal changes. Denies any fever or chills, no chest pain or shortness of breath. He feels ok he states and notes he feels much better since prior to admission. Functional Status: Reports: Pain Controlled - Review of Systems General: Denies: Fever HEENT: Reports: No Symptoms Pulmonary: Reports: No Symptoms Cardiovascular: Reports: No Symptoms Gastrointestinal: Reports: No Symptoms Genitourinary: Denies: Burning, Urgency, Incontinence Neurological: Reports: No Symptoms Psychiatric: Reports: No Symptoms - Patient Data Vitals - Most Recent: Last Vital Signs Temp 97.3 F 06/21/20 08:00 Pulse 69 06/21/20 08:08 Resp 20 06/21/20 08:00 BP 169/66 H 06/21/20 08:09 Pulse Ox 99 06/21/20 08:00 Weight - Most Recent: 255 lb I&O - Last 24 Hours: Intake & Output 06/20/20 06/21/20 06/21/20 22:59 06:59 14:59 Intake Total 940 Balance 940 Lab Results Last 24 Hours: Laboratory Results - last 24 hr 06/20/20 06/20/20 06/21/20 Range/Units 09:30 15:40 08:55 WBC 17.4 H (4.0-11.0) K/uL RBC 5.02 (4.50-6.50) M/uL Hgb 14.6 (13.0-18.0) g/dL Hct 44.0 (40.0-54.0) % MCV 88 (76-96) fL MCH 29.1 (27.0-32.0) pg MCHC 33.2 (31.0-35.0) g/dL RDW 14.3 (11.0-16.0) % Plt Count 231 (150-400) K/uL MPV 10.0 (6.0-10.0) fL Neut % (Auto) 88.5 H (45.0-70.0) % Lymph % (Auto) 6.1 L (20.0-40.0) % [place] % (Auto) 4.9 (3.0-10.0) % Eos % (Auto) 0.2 L (1.0-5.0) % Baso % (Auto) 0.3 (0.0-0.5) % Neut # (Auto) 15.38 H (2.00-7.50) K/uL Lymph # (Auto) 1.06 L (1.50-4.00) K/uL [place] # (Auto) 0.85 H (0.20-0.80) K/uL Eos # (Auto) 0.03 L (0.04-0.40) K/uL Baso # (Auto) 0.06 (0.02-0.10) K/uL Sodium 135 L (136-145) mmol/L Potassium 4.5 (3.5-5.1) mmol/L Chloride 102 (98-107) mmol/L Carbon Dioxide 21.1 (21.0-32.0) mmol/L Anion Gap 16.4 H (5.0-15.0) mmol/L BUN 23 (8-26) mg/dL Creatinine 1.39 H (0.70-1.30) mg/dL Est Cr Clr Drug Dosing 47.16 mL/min Estimated GFR (MDRD) 50 L (>60) MLS/MIN BUN/Creatinine Ratio 16.5 (6-25) Glucose 321 H (74-100) mg/dL Calcium 8.2 L (8.5-10.1) mg/dL Urine Color Yellow Urine Appearance Clear (CLEAR) Urine pH 5.5 (5.0-8.0) Ur Specific [place] 1.025 (1.003-1.030) Urine Protein Trace H (NEGATIVE) mg/dL Urine Glucose (UA) 500 H (NEGATIVE) mg/dL Urine Ketones Negative (NEGATIVE) mg/dL Urine Occult Blood Negative (NEGATIVE) Urine Nitrite Negative (NEGATIVE) Urine Bilirubin Negative (NEGATIVE) Urine Urobilinogen 0.2 (0.2-1.0) E.U./dL Ur Leukocyte Esterase Negative (NEGATIVE) Urine RBC Not seen /HPF Urine WBC 0-5 H /HPF Ur Squamous Epith Cells Few /HPF Urine Other 06/21/20 Range/Units 08:55 WBC (4.0-11.0) K/uL RBC (4.50-6.50) M/uL Hgb (13.0-18.0) g/dL Hct (40.0-54.0) % MCV (76-96) fL MCH (27.0-32.0) pg MCHC (31.0-35.0) g/dL RDW (11.0-16.0) % Plt Count (150-400) K/uL MPV (6.0-10.0) fL Neut % (Auto) (45.0-70.0) % Lymph % (Auto) (20.0-40.0) % [place] % (Auto) (3.0-10.0) % Eos % (Auto) (1.0-5.0) % Baso % (Auto) (0.0-0.5) % Neut # (Auto) (2.00-7.50) K/uL Lymph # (Auto) (1.50-4.00) K/uL [place] # (Auto) (0.20-0.80) K/uL Eos # (Auto) (0.04-0.40) K/uL Baso # (Auto) (0.02-0.10) K/uL Sodium 136 (136-145) mmol/L Potassium 4.5 (3.5-5.1) mmol/L Chloride 101 (98-107) mmol/L Carbon Dioxide 21.5 (21.0-32.0) mmol/L Anion Gap 18.0 H (5.0-15.0) mmol/L BUN 27 H (8-26) mg/dL Creatinine 1.49 H (0.70-1.30) mg/dL Est Cr Clr Drug Dosing 43.99 mL/min Estimated GFR (MDRD) 46 L (>60) MLS/MIN BUN/Creatinine Ratio 18.1 (6-25) Glucose 297 H (74-100) mg/dL Calcium 8.5 (8.5-10.1) mg/dL Urine Color Urine Appearance (CLEAR) Urine pH (5.0-8.0) Ur Specific [place] (1.003-1.030) Urine Protein (NEGATIVE) mg/dL Urine Glucose (UA) (NEGATIVE) mg/dL Urine Ketones (NEGATIVE) mg/dL Urine Occult Blood (NEGATIVE) Urine Nitrite (NEGATIVE) Urine Bilirubin (NEGATIVE) Urine Urobilinogen (0.2-1.0) E.U./dL Ur Leukocyte Esterase (NEGATIVE) Urine RBC /HPF Urine WBC /HPF Ur Squamous Epith Cells /HPF Urine Other Roe Results Last 24 Hours: Microbiology 06/17/20 15:15 Aerobic Blood Culture - Preliminary Blood NO GROWTH AFTER 3 DAYS Anaerobic Blood Culture - Preliminary NO GROWTH AFTER 3 DAYS Med Orders - Current: Current Medications Acetaminophen (Tylenol Arthritis Pain) 650 mg PO BID [facility] Last Admin: 06/21/20 08:08 Dose: 650 mg Documented by: Acetaminophen (Tylenol) 650 mg PO Q4H PRN PRN Reason: Headache Last Admin: 06/19/20 05:38 Dose: 650 mg Documented by: Albuterol (Ventolin Hfa) 0 gm INH Q4H PRN PRN Reason: Shortness of Breath Aspirin (Halfprin) 81 mg PO QPM [facility] Last Admin: 06/20/20 20:04 Dose: 81 mg Documented by: Atorvastatin Calcium (Lipitor) 80 mg PO BEDTIME [facility] Last Admin: 06/20/20 20:05 Dose: 80 mg Documented by: Carvedilol (Coreg) 12.5 mg PO BIDMEALS [facility] Last Admin: 06/21/20 08:08 Dose: 12.5 mg Documented by: Diphenhydramine HCl (Benadryl) 50 mg PO BEDTIME [facility] Last Admin: 06/20/20 20:04 Dose: 50 mg Documented by: Sodium Chloride (Normal Saline) 1,000 mls @ 125 mls/hr IV ASDIRECTED [facility] Last Admin: 06/19/20 10:59 Dose: 125 mls/hr Documented by: Levofloxacin (Levaquin) 500 mg PO Q24H [facility] Last Admin: 06/20/20 14:48 Dose: 500 mg Documented by: Losartan Potassium (Cozaar) 25 mg PO DAILY [facility] Last Admin: 06/21/20 08:09 Dose: 25 mg Documented by: Magnesium Oxide (Magnesium Oxide) 500 mg PO DAILY [facility] Last Admin: 06/19/20 10:23 Dose: Not Given Documented by: Mometasone Furoate/Formoterol Fumar (Dulera 200-5 Mcg) 2 puff IH BID [facility] Last Admin: 06/20/20 20:04 Dose: 2 puff Documented by: Multivitamins/Minerals (Thera M Plus) 1 tab PO DAILY [facility] Last Admin: 06/21/20 08:09 Dose: 1 tab Documented by: Potassium [Potassium (] 99mg (2.53meq)) 99 mg PO DAILY [facility] Oxycodone/Acetaminophen (Percocet 325-5 Mg) 1.5 tab PO Q8H PRN PRN Reason: Pain (severe 7-10) Last Admin: 06/18/20 11:47 Dose: 1.5 tab Documented by: Pantoprazole Sodium (Protonix) 40 mg PO DAILY [facility] Last Admin: 06/21/20 08:10 Dose: 40 mg Documented by: Sodium Chloride (Saline Flush) 10 ml FLUSH ASDIRECTED PRN PRN Reason: Keep Vein Open Spironolactone (Aldactone) 12.5 mg PO DAILY [facility] Last Admin: 06/21/20 08:09 Dose: 12.5 mg Documented by: Tiotropium [place] (Spiriva Handihaler) 18 mcg INH DAILY [facility] Last Admin: 06/20/20 08:27 Dose: 18 unit Documented by: Trazodone HCl (Trazodone) 150 mg PO QPM [facility] Last Admin: 06/20/20 20:05 Dose: 150 mg Documented by: Discontinued Medications Ceftriaxone Sodium (Rocephin) Confirm Administered Dose 1 gm .ROUTE .[facility]-MED ONE Stop: 06/17/20 15:07 Last Admin: 06/17/20 17:27 Dose: Not Given Documented by: Ceftriaxone Sodium 1 gm/ (Sodium Chloride) 50 mls @ 200 mls/hr IV Q24H [facility] Last Admin: 06/19/20 14:53 Dose: 200 mls/hr Documented by: Non-Formulary Medication (Fluticasone/Umeclidin/Vilanter [Trelegy Ellipta 100-62.5-25]) 1 each INH DAILY [facility] - Exam Quality Assessment: Supplemental Oxygen General: Alert, Oriented, Cooperative, No Acute Distress HEENT: Pupils Equal Neck: Supple, Trachea Midline Lungs: Clear to Auscultation Cardiovascular: Regular Rate Back Exam: Normal Inspection Extremities: Normal Inspection Skin: Warm Neurological: No New Focal Deficit Psy/Mental Status: Alert Sepsis Event Note - Evaluation Sepsis Screening Result: No Definite Risk - Focused Exam Vital Signs: Vital Signs Temp Temp Pulse Pulse Resp BP BP 06/21/20 08:09 169/66 H 06/21/20 08:08 69 153/61 H 06/21/20 08:00 97.3 F 69 20 09/06/20 04:00 98.2 F 18 134/64 06/21/20 00:00 97.9 F 18 130/68 BP Pulse Ox 06/21/20 08:09 06/21/20 08:08 06/21/20 08:00 153/61 H 99 06/21/20 04:00 99 06/21/20 00:00 98 - Problem List Review Problem List Initiated/Reviewed/Updated: Yes - Plan Plan:: Patient admitted for Urosepsis and management of chronic concerns. Placed on IV Rocephin and will f/u labs in the AM. Patient IN/Out to be monitored due to acute on chronic renal insufficiency. We gently hydrate. COPD management - continue home meds. CHF - No changes - close monitoring of hydration so as not to fluid overload. HTN - controlled on home meds. HLP - continue home meds. 06/18/20 Urosepsis - repeat labs in AM, improved WBC, continue antibiotics. Renal insufficiency - resolved COPD - continue current management and home meds CHF - no changes HTN controlled. HLP - continue home meds. Headache - tylenol and then excedrin if needed. 06/19/20 Urosepsis - repeat labs in AM, improved WBC, continue antibiotics. If normalizes or near normal in the next day or two then consider discharge with oral antibiotics course. Renal insufficiency - resolved but now Creatinine elevated - will hydrate and recheck in AM. COPD - continue current management and home meds CHF - no changes HTN controlled. HLP - continue home meds. Headache - tylenol and then excedrin if needed. Follow up labs in AM and consider d/c on home antibiotics if WBC close to normal and no symptoms. 06/20/20 followed by e-hospitalist- note reviewed, pt stable. 06/21/20 Urosepsis - repeat labs in AM, bump in his WBC to 17.4, continue antibiotics. If normalizes or near normal in the next day or two then consider discharge with oral antibiotics course. Renal insufficiency - resolved but now Creatinine elevated - will hydrate and recheck in AM. COPD - continue current management and home meds CHF - no changes HTN controlled. HLP - continue home meds. No new complaints Awaiting e-hospitalist to review labs and agree or not that patient can go home. He would like to go home today.
--- NOTE | 2020-06-21 10:43 | PCM.PN ---
- General Info Date of Service: 06/21/20 - Patient Data Vitals - Most Recent: Last Vital Signs Temp 36.3 C 06/21/20 08:00 Pulse 69 06/21/20 08:08 Resp 20 06/21/20 08:00 BP 169/66 H 06/21/20 08:09 Pulse Ox 99 06/21/20 08:00 Weight - Most Recent: 115.666 kg I&O - Last 24 Hours: Intake & Output 06/20/20 06/21/20 06/21/20 22:59 06:59 14:59 Intake Total 940 Balance 940 Lab Results Last 24 Hours: Laboratory Results - last 24 hr 06/20/20 06/21/20 06/21/20 Range/Units 15:40 08:55 08:55 WBC 17.4 H (4.0-11.0) K/uL RBC 5.02 (4.50-6.50) M/uL Hgb 14.6 (13.0-18.0) g/dL Hct 44.0 (40.0-54.0) % MCV 88 (76-96) fL MCH 29.1 (27.0-32.0) pg MCHC 33.2 (31.0-35.0) g/dL RDW 14.3 (11.0-16.0) % Plt Count 231 (150-400) K/uL MPV 10.0 (6.0-10.0) fL Neut % (Auto) 88.5 H (45.0-70.0) % Lymph % (Auto) 6.1 L (20.0-40.0) % [place] % (Auto) 4.9 (3.0-10.0) % Eos % (Auto) 0.2 L (1.0-5.0) % Baso % (Auto) 0.3 (0.0-0.5) % Neut # (Auto) 15.38 H (2.00-7.50) K/uL Lymph # (Auto) 1.06 L (1.50-4.00) K/uL [place] # (Auto) 0.85 H (0.20-0.80) K/uL Eos # (Auto) 0.03 L (0.04-0.40) K/uL Baso # (Auto) 0.06 (0.02-0.10) K/uL Sodium 136 (136-145) mmol/L Potassium 4.5 (3.5-5.1) mmol/L Chloride 101 (98-107) mmol/L Carbon Dioxide 21.5 (21.0-32.0) mmol/L Anion Gap 18.0 H (5.0-15.0) mmol/L BUN 27 H (8-26) mg/dL Creatinine 1.49 H (0.70-1.30) mg/dL Est Cr Clr Drug Dosing 43.99 mL/min Estimated GFR (MDRD) 46 L (>60) MLS/MIN BUN/Creatinine Ratio 18.1 (6-25) Glucose 297 H (74-100) mg/dL Calcium 8.5 (8.5-10.1) mg/dL Urine Color Yellow Urine Appearance Clear (CLEAR) Urine pH 5.5 (5.0-8.0) Ur Specific [place] 1.025 (1.003-1.030) Urine Protein Trace H (NEGATIVE) mg/dL Urine Glucose (UA) 500 H (NEGATIVE) mg/dL Urine Ketones Negative (NEGATIVE) mg/dL Urine Occult Blood Negative (NEGATIVE) Urine Nitrite Negative (NEGATIVE) Urine Bilirubin Negative (NEGATIVE) Urine Urobilinogen 0.2 (0.2-1.0) E.U./dL Ur Leukocyte Esterase Negative (NEGATIVE) Urine RBC Not seen /HPF Urine WBC 0-5 H /HPF Ur Squamous Epith Cells Few /HPF Urine Other Roe Results Last 24 Hours: Microbiology 06/17/20 15:15 Aerobic Blood Culture - Preliminary Blood NO GROWTH AFTER 3 DAYS Anaerobic Blood Culture - Preliminary NO GROWTH AFTER 3 DAYS Med Orders - Current: Current Medications Acetaminophen (Tylenol Arthritis Pain) 650 mg PO BID [facility] Last Admin: 06/21/20 08:08 Dose: 650 mg Documented by: Acetaminophen (Tylenol) 650 mg PO Q4H PRN PRN Reason: Headache Last Admin: 06/19/20 05:38 Dose: 650 mg Documented by: Albuterol (Ventolin Hfa) 0 gm INH Q4H PRN PRN Reason: Shortness of Breath Aspirin (Halfprin) 81 mg PO QPM [facility] Last Admin: 06/20/20 20:04 Dose: 81 mg Documented by: Atorvastatin Calcium (Lipitor) 80 mg PO BEDTIME [facility] Last Admin: 06/20/20 20:05 Dose: 80 mg Documented by: Carvedilol (Coreg) 12.5 mg PO BIDMEALS [facility] Last Admin: 06/21/20 08:08 Dose: 12.5 mg Documented by: Diphenhydramine HCl (Benadryl) 50 mg PO BEDTIME [facility] Last Admin: 06/20/20 20:04 Dose: 50 mg Documented by: Sodium Chloride (Normal Saline) 1,000 mls @ 125 mls/hr IV ASDIRECTED [facility] Last Admin: 06/19/20 10:59 Dose: 125 mls/hr Documented by: Levofloxacin (Levaquin) 500 mg PO Q24H [facility] Last Admin: 06/20/20 14:48 Dose: 500 mg Documented by: Losartan Potassium (Cozaar) 25 mg PO DAILY [facility] Last Admin: 06/21/20 08:09 Dose: 25 mg Documented by: Magnesium Oxide (Magnesium Oxide) 500 mg PO DAILY [facility] Last Admin: 06/19/20 10:23 Dose: Not Given Documented by: Mometasone Furoate/Formoterol Fumar (Dulera 200-5 Mcg) 2 puff IH BID [facility] Last Admin: 06/21/20 08:00 Dose: 2 puff Documented by: Multivitamins/Minerals (Thera M Plus) 1 tab PO DAILY [facility] Last Admin: 06/21/20 08:09 Dose: 1 tab Documented by: Potassium [Potassium (] 99mg (2.53meq)) 99 mg PO DAILY [facility] Oxycodone/Acetaminophen (Percocet 325-5 Mg) 1.5 tab PO Q8H PRN PRN Reason: Pain (severe 7-10) Last Admin: 06/18/20 11:47 Dose: 1.5 tab Documented by: Pantoprazole Sodium (Protonix) 40 mg PO DAILY [facility] Last Admin: 06/21/20 08:10 Dose: 40 mg Documented by: Sodium Chloride (Saline Flush) 10 ml FLUSH ASDIRECTED PRN PRN Reason: Keep Vein Open Spironolactone (Aldactone) 12.5 mg PO DAILY [facility] Last Admin: 06/21/20 08:09 Dose: 12.5 mg Documented by: Tiotropium [place] (Spiriva Handihaler) 18 mcg INH DAILY [facility] Last Admin: 06/21/20 08:00 Dose: 1 unit Documented by: Trazodone HCl (Trazodone) 150 mg PO QPM [facility] Last Admin: 06/20/20 20:05 Dose: 150 mg Documented by: Discontinued Medications Ceftriaxone Sodium (Rocephin) Confirm Administered Dose 1 gm .ROUTE .[facility] ONE Stop: 06/17/20 15:07 Last Admin: 06/17/20 17:27 Dose: Not Given Documented by: Ceftriaxone Sodium 1 gm/ (Sodium Chloride) 50 mls @ 200 mls/hr IV Q24H [facility] Last Admin: 06/19/20 14:53 Dose: 200 mls/hr Documented by: Non-Formulary Medication (Fluticasone/Umeclidin/Vilanter [Trelegy Ellipta 100-62.5-25]) 1 each INH DAILY [facility] Sepsis Event Note - Evaluation Sepsis Screening Result: No Definite Risk - Focused Exam Vital Signs: Vital Signs Temp Temp Pulse Pulse Resp BP BP 06/21/20 08:09 169/66 H 06/21/20 08:08 69 153/61 H 06/21/20 08:00 36.3 C 69 20 06/21/20 04:00 36.8 C 18 134/64 06/21/20 00:00 36.6 C 18 130/68 BP Pulse Ox 06/21/20 08:09 06/21/20 08:08 06/21/20 08:00 153/61 H 99 06/21/20 04:00 99 06/21/20 00:00 98 - Problem List & Annotations (1) Frequency of urination SNOMED Code(s): 246140211 Code(s): R35.0 - FREQUENCY OF MICTURITION Status: Acute Current Visit: Yes - Problem List Review Problem List Initiated/Reviewed/Updated: Yes - My Orders Last 24 Hours: My Active Orders 06/20/20 12:22 Post Void Residual [OM.PC] Routine 06/20/20 12:30 levoFLOXacin [Levaquin] 500 mg PO Q24H 06/20/20 15:25 Bladder Scan [RC] ASDIRECTED - Assessment Assessment:: Spoke to Primary MD. Reviewed labs and discussed with nursing. Even though patient's WBC is still elevated, he is much better today. OK from my perspective to discharge. - Plan Plan:: Patient admitted for Urosepsis and management of chronic concerns. Placed on IV Rocephin and will f/u labs in the AM. Patient IN/Out to be monitored due to acute on chronic renal insufficiency. We gently hydrate. COPD management - continue home meds. CHF - No changes - close monitoring of hydration so as not to fluid overload. HTN - controlled on home meds. HLP - continue home meds. 06/18/20 Urosepsis - repeat labs in AM, improved WBC, continue antibiotics. Renal insufficiency - resolved COPD - continue current management and home meds CHF - no changes HTN controlled. HLP - continue home meds. Headache - tylenol and then excedrin if needed. 06/19/20 Urosepsis - repeat labs in AM, improved WBC, continue antibiotics. If normalizes or near normal in the next day or two then consider discharge with oral antibiotics course. Renal insufficiency - resolved but now Creatinine elevated - will hydrate and recheck in AM. COPD - continue current management and home meds CHF - no changes HTN controlled. HLP - continue home meds. Headache - tylenol and then excedrin if needed. Follow up labs in AM and consider d/c on home antibiotics if WBC close to normal and no symptoms. 06/20/20 followed by e-hospitalist- note reviewed, pt stable. 06/21/20 Urosepsis - repeat labs in AM, bump in his WBC to 17.4, continue antibiotics. If normalizes or near normal in the next day or two then consider discharge with oral antibiotics course. Renal insufficiency - resolved but now Creatinine elevated - will hydrate and recheck in AM. COPD - continue current management and home meds CHF - no changes HTN controlled. HLP - continue home meds. No new complaints Awaiting e-hospitalist to review labs and agree or not that patient can go home. He would like to go home today.
--- NOTE | 2020-06-21 10:55 | PCM.DCSUM1 ---
Discharge Summary - Hospital Course Free Text/Narrative:: Pt had been admitted with diagnosis of urosepsis. He has been was switched yesterday to Levaquin 500mg QD and has not had fevers or GI or complaints and is requesting to go home with po abx for remainder of his abx tx[place] [id number] [place] [address] as of today. Spoke with e-hospitalist, Dr Manuel who agrees with his discharge and follow-up plans with his PCP. Pt was given Rx for Levaquin 500mg Given on Levaquin 500mg to take home for tomorrow due to holiday and no pharmacy available to fill Rx HPI Initial Comments: Admitted 06/17 for urosepsis Diagnosis: Stroke: No Modified Guys Scale: No Symptoms at All Modified Jason Scale Score: 0 - Discharge Data Discharge Date: 06/21/20 Discharge Disposition: Home, Self-Care 01 Condition: Good - Referral to Home Health Primary Care Physician: Jomar Barcenas MD - Patient Instructions Diet: Usual Diet as Tolerated Activity: As Tolerated Driving: May Drive Today Showering/Bathing: May Shower Notify Provider of: Fever, Increased Pain - Discharge Plan *PRESCRIPTION DRUG MONITORING PROGRAM REVIEWED*: Not Applicable *COPY OF PRESCRIPTION DRUG MONITORING REPORT IN PATIENT ASIYA: Not Applicable Home Medications: Home Meds Aspirin [Ecotrin EC] 81 mg PO QPM 01/20/17 [History] Losartan Potassium 25 mg PO DAILY 01/20/17 [History] Spironolactone [Aldactone] 12.5 mg PO DAILY 01/20/17 [History] carvediloL [Carvedilol] 12.5 mg PO BID 01/20/17 [History] traZODone 150 mg PO QPM 01/20/17 [History] Albuterol [Ventolin HFA] 1 puff INH Q4H PRN 02/09/18 [History] Magnesium 2 tab PO DAILY 02/09/18 [History] Multivit-Min/Folic/Vit K/Lycop [Men's Daily Formula Tablet] 1 tab PO DAILY 02/09/18 [History] Omeprazole [priLOSEC OTC] 20 mg PO DAILY 02/09/18 [History] Potassium 99 mg PO DAILY 02/09/18 [History] diphenhydrAMINE HCL [Diphenhydramine HCl] 50 mg PO BEDTIME 02/09/18 [History] Acetaminophen [Tylenol Arthritis] 650 mg PO BID 08/04/19 [History] Fluticasone/Umeclidin/Vilanter [Trelegy Ellipta 100-62.5-25] 1 each INH DAILY 08/04/19 [History] Fluticasone/Umeclidin/Vilanter [Trelegy Ellipta 100-62.5-25] 1 each INH DAILY 06/17/20 [History] atorvaSTATin [Lipitor] 80 mg PO BEDTIME 06/17/20 [History] oxyCODONE HCl/Acetaminophen [Endocet 7.5-325 mg Tablet] 1 tab PO Q8H 06/17/20 [History] - Discharge Summary/Plan Comment DC Time >30 min.: No - Patient Data Vitals - Most Recent: Last Vital Signs Temp 97.3 F 06/21/20 08:00 Pulse 69 06/21/20 08:08 Resp 20 06/21/20 08:00 BP 169/66 H 06/21/20 08:09 Pulse Ox 99 06/21/20 08:00 Weight - Most Recent: 255 lb I&O - Last 24 hours: Intake & Output 06/20/20 06/21/20 06/21/20 22:59 06:59 14:59 Intake Total 940 Balance 940 Lab Results - Last 24 hrs: Laboratory Results - last 24 hr 06/20/20 06/21/20 06/21/20 Range/Units 15:40 08:55 08:55 WBC 17.4 H (4.0-11.0) K/uL RBC 5.02 (4.50-6.50) M/uL Hgb 14.6 (13.0-18.0) g/dL Hct 44.0 (40.0-54.0) % MCV 88 (76-96) fL MCH 29.1 (27.0-32.0) pg MCHC 33.2 (31.0-35.0) g/dL RDW 14.3 (11.0-16.0) % Plt Count 231 (150-400) K/uL MPV 10.0 (6.0-10.0) fL Neut % (Auto) 88.5 H (45.0-70.0) % Lymph % (Auto) 6.1 L (20.0-40.0) % [place] % (Auto) 4.9 (3.0-10.0) % Eos % (Auto) 0.2 L (1.0-5.0) % Baso % (Auto) 0.3 (0.0-0.5) % Neut # (Auto) 15.38 H (2.00-7.50) K/uL Lymph # (Auto) 1.06 L (1.50-4.00) K/uL [place] # (Auto) 0.85 H (0.20-0.80) K/uL Eos # (Auto) 0.03 L (0.04-0.40) K/uL Baso # (Auto) 0.06 (0.02-0.10) K/uL Sodium 136 (136-145) mmol/L Potassium 4.5 (3.5-5.1) mmol/L Chloride 101 (98-107) mmol/L Carbon Dioxide 21.5 (21.0-32.0) mmol/L Anion Gap 18.0 H (5.0-15.0) mmol/L BUN 27 H (8-26) mg/dL Creatinine 1.49 H (0.70-1.30) mg/dL Est Cr Clr Drug Dosing 43.99 mL/min Estimated GFR (MDRD) 46 L (>60) MLS/MIN BUN/Creatinine Ratio 18.1 (6-25) Glucose 297 H (74-100) mg/dL Calcium 8.5 (8.5-10.1) mg/dL Urine Color Yellow Urine Appearance Clear (CLEAR) Urine pH 5.5 (5.0-8.0) Ur Specific [place] 1.025 (1.003-1.030) Urine Protein Trace H (NEGATIVE) mg/dL Urine Glucose (UA) 500 H (NEGATIVE) mg/dL Urine Ketones Negative (NEGATIVE) mg/dL Urine Occult Blood Negative (NEGATIVE) Urine Nitrite Negative (NEGATIVE) Urine Bilirubin Negative (NEGATIVE) Urine Urobilinogen 0.2 (0.2-1.0) E.U./dL Ur Leukocyte Esterase Negative (NEGATIVE) Urine RBC Not seen /HPF Urine WBC 0-5 H /HPF Ur Squamous Epith Cells Few /HPF Urine Other DANNY Results - Last 24 hrs: Microbiology 06/17/20 15:15 Aerobic Blood Culture - Preliminary Blood NO GROWTH AFTER 3 DAYS Anaerobic Blood Culture - Preliminary NO GROWTH AFTER 3 DAYS Med Orders - Current: Current Medications Acetaminophen (Tylenol Arthritis Pain) 650 mg PO BID [facility] Last Admin: 06/21/20 08:08 Dose: 650 mg Documented by: Acetaminophen (Tylenol) 650 mg PO Q4H PRN PRN Reason: Headache Last Admin: 06/19/20 05:38 Dose: 650 mg Documented by: Albuterol (Ventolin Hfa) 0 gm INH Q4H PRN PRN Reason: Shortness of Breath Aspirin (Halfprin) 81 mg PO QPM [facility] Last Admin: 06/20/20 20:04 Dose: 81 mg Documented by: Atorvastatin Calcium (Lipitor) 80 mg PO BEDTIME [facility] Last Admin: 06/20/20 20:05 Dose: 80 mg Documented by: Carvedilol (Coreg) 12.5 mg PO BIDMEALS [facility] Last Admin: 06/21/20 08:08 Dose: 12.5 mg Documented by: Diphenhydramine HCl (Benadryl) 50 mg PO BEDTIME [facility] Last Admin: 06/20/20 20:04 Dose: 50 mg Documented by: Sodium Chloride (Normal Saline) 1,000 mls @ 125 mls/hr IV ASDIRECTED [facility] Last Admin: 06/19/20 10:59 Dose: 125 mls/hr Documented by: Levofloxacin (Levaquin) 500 mg PO Q24H [facility] Last Admin: 06/20/20 14:48 Dose: 500 mg Documented by: Losartan Potassium (Cozaar) 25 mg PO DAILY [facility] Last Admin: 06/21/20 08:09 Dose: 25 mg Documented by: Magnesium Oxide (Magnesium Oxide) 500 mg PO DAILY [facility] Last Admin: 06/19/20 10:23 Dose: Not Given Documented by: Mometasone Furoate/Formoterol Fumar (Dulera 200-5 Mcg) 2 puff IH BID [facility] Last Admin: 06/21/20 08:00 Dose: 2 puff Documented by: Multivitamins/Minerals (Thera M Plus) 1 tab PO DAILY [facility] Last Admin: 06/21/20 08:09 Dose: 1 tab Documented by: Potassium [Potassium (] 99mg (2.53meq)) 99 mg PO DAILY [facility] Oxycodone/Acetaminophen (Percocet 325-5 Mg) 1.5 tab PO Q8H PRN PRN Reason: Pain (severe 7-10) Last Admin: 06/18/20 11:47 Dose: 1.5 tab Documented by: Pantoprazole Sodium (Protonix) 40 mg PO DAILY [facility] Last Admin: 06/21/20 08:10 Dose: 40 mg Documented by: Sodium Chloride (Saline Flush) 10 ml FLUSH ASDIRECTED PRN PRN Reason: Keep Vein Open Spironolactone (Aldactone) 12.5 mg PO DAILY [facility] Last Admin: 06/21/20 08:09 Dose: 12.5 mg Documented by: Tiotropium [place] (Spiriva Handihaler) 18 mcg INH DAILY [facility] Last Admin: 06/21/20 08:00 Dose: 1 unit Documented by: Trazodone HCl (Trazodone) 150 mg PO QPM [facility] Last Admin: 06/20/20 20:05 Dose: 150 mg Documented by: Discontinued Medications Ceftriaxone Sodium (Rocephin) Confirm Administered Dose 1 gm .ROUTE .[facility] Stop: 06/17/20 15:07 Last Admin: 06/17/20 17:27 Dose: Not Given Documented by: Ceftriaxone Sodium 1 gm/ (Sodium Chloride) 50 mls @ 200 mls/hr IV Q24H [facility] Last Admin: 06/19/20 14:53 Dose: 200 mls/hr Documented by: Non-Formulary Medication (Fluticasone/Umeclidin/Vilanter [Trelegy Ellipta 100-62.5-25]) 1 each INH DAILY [facility]
[2020-06-21] MEDS: Levofloxacin 500 MG Tab PO SCH (10:57)
== END 2020-06-21 11:35 | disposition home or self-care (01) | DRG 872 ==
LOC: LB.CLINIC 13:38 → LB.MS 14:29 → UNDOADMIN 14:32 → LB.MS 14:32
PROVIDERS: ADMIT Family Medicine; ATTEND Family Medicine
DX: A41.9 Sepsis, unspecified organism (principal); N30.00 Acute cystitis without hematuria; I50.32 Chronic diastolic (congestive) heart failure; I13.0 Hypertensive heart and chronic kidney disease with heart failure and stage 1 through stage 4 chronic kidney disease, or unspecified chronic kidney disease; E11.22 Type 2 diabetes mellitus with diabetic chronic kidney disease; H91.90 Unspecified hearing loss, unspecified ear; E78.00 Pure hypercholesterolemia, unspecified; J44.9 Chronic obstructive pulmonary disease, unspecified; K21.9 Gastro-esophageal reflux disease without esophagitis; G89.29 Other chronic pain; M54.9 Dorsalgia, unspecified; M19.90 Unspecified osteoarthritis, unspecified site; E78.49 Other hyperlipidemia; E66.01 Morbid (severe) obesity due to excess calories; N18.9 Chronic kidney disease, unspecified; N28.9 Disorder of kidney and ureter, unspecified; I49.5 Sick sinus syndrome; Z79.82 Long term (current) use of aspirin; Z79.899 Other long term (current) drug therapy; I25.2 Old myocardial infarction; Z87.01 Personal history of pneumonia (recurrent); Z87.442 Personal history of urinary calculi; Z95.1 Presence of aortocoronary bypass graft; Z95.5 Presence of coronary angioplasty implant and graft; Z98.1 Arthrodesis status; Z87.891 Personal history of nicotine dependence
CPT/HCPCS: 36415; 51798; 71045; 74176; 80048; 80053; 81001; 83605; 85025; 87040; 87086; A9270-GY; J0696; J7030; J7050

== ENCOUNTER 2020-12-23 12:45 | Emergency (ER) | payer MEDICARE ==
[2020-12-23] MEDS ORDERED: Sodium Chloride 0.9% 10 ML Syringe FLUSH PRN (13:35)
[2020-12-23 14:57] VITALS: BP 108/55; PULSE 64
--- NOTE | 2020-12-23 19:34 | EDM.PDOC ---
ED HPI GENERAL MEDICAL PROBLEM - General Chief Complaint: General Stated Complaint: COUGH / SOB Time Seen by Provider: 12/23/20 14:31 Source of Information: Reports: RN Notes Reviewed - History of Present Illness INITIAL COMMENTS - FREE TEXT/NARRATIVE: Pt felt pain in the ULQ of the Abd today. [place] like someone punched him. He feels discomfort along the Epigastric area. Onset: Today, Gradual Duration: Chronic Location: Reports: Chest Quality: Reports: Pressure Severity: Mild Improves with: Reports: Rest Worsens with: Reports: None Associated Symptoms: Reports: Other (Abd pain) Treatments [employer]GRAM[employer]: Reports: Breathing Treatments - Related Data Allergies Allergy/AdvReac Type Severity Reaction Status Date / Time No Known Allergies Allergy Verified 12/23/20 13:55 Home Meds: Home Meds Aspirin [Ecotrin EC] 81 mg PO QPM 01/20/17 [History] Losartan Potassium 25 mg PO DAILY 01/20/17 [History] Spironolactone [Aldactone] 12.5 mg PO DAILY 01/20/17 [History] carvediloL [Carvedilol] 12.5 mg PO BID 01/20/17 [History] traZODone 150 mg PO QPM 01/20/17 [History] Albuterol [Ventolin HFA] 1 puff INH Q4H PRN 02/09/18 [History] Magnesium 2 tab PO DAILY 02/09/18 [History] Multivit-Min/Folic/Vit K/Lycop [Men's Daily Formula Tablet] 1 tab PO DAILY 02/09/18 [History] Omeprazole [priLOSEC OTC] 20 mg PO DAILY 02/09/18 [History] Potassium 99 mg PO DAILY 02/09/18 [History] diphenhydrAMINE HCL [Diphenhydramine HCl] 50 mg PO BEDTIME 02/09/18 [History] Acetaminophen [Tylenol Arthritis] 650 mg PO BID 08/04/19 [History] Fluticasone/Umeclidin/Vilanter [Trelegy Ellipta 100-62.5-25] 1 each INH DAILY 08/04/19 [History] Fluticasone/Umeclidin/Vilanter [Trelegy Ellipta 100-62.5-25] 1 each INH DAILY 06/17/20 [History] atorvaSTATin [Lipitor] 80 mg PO BEDTIME 06/17/20 [History] oxyCODONE HCl/Acetaminophen [Endocet 7.5-325 mg Tablet] 1 tab PO Q8H 06/17/20 [History] Past Medical History HEENT History: Reports: Hard of Hearing Cardiovascular History: Reports: Bypass, High Cholesterol, Hypertension, [place], Pacemaker, SOB on Exertion Respiratory History: Reports: Asthma, COPD, Pneumonia, Recurrent, SOB Gastrointestinal History: Reports: GERD Genitourinary History: Reports: Renal Calculus, Renal Disease Musculoskeletal History: Reports: Back Pain, Chronic, Fracture, Osteoarthritis Other Musculoskeletal History: R Leg pain, 2 broken wrists, left leg fracture Neurological History: Reports: Other (See Below) Other Neuro History: numb in R forearm into 3-4-5 fingers since back sugery Jun Psychiatric History: Reports: None Endocrine/Metabolic History: Reports: None, Diabetes, Type II, Other (See Below) Other Endocrine/Metabolic History: pre-diabetic Hematologic History: Reports: None Immunologic History: Reports: None Oncologic (Cancer) History: Reports: None Dermatologic History: Reports: Cellulitis - Infectious Disease History Infectious Disease History: Reports: Chicken Pox - Past Surgical History HEENT Surgical History: Reports: Tonsillectomy Cardiovascular Surgical History: Reports: Coronary Artery Bypass, Coronary Artery Stent Respiratory Surgical History: Reports: None GI Surgical History: Reports: Colonoscopy Other GI Surgeries/Procedures: Reason for colonoscopy:Blood in stool-02/09/18 Endocrine Surgical History: Reports: None Other Endocrine Surgeries/Procedures: patient feels possibly a mild form of Diabetes type 2 Neurological Surgical History: Reports: Lumbar Spine, Spinal Fusion Other Neurological Surgeries/Procedures: 2014 Lumbar spinal fusion Musculoskeletal Surgical History: Reports: ORIF Other Musculoskeletal Surgeries/Procedures:: Fixation of R leg Fx, BACK SURGERY 2014 Social & Family History - Family History Family Medical History: No Pertinent Family History Musculoskeletal: Reports: Back pain, Chronic Endocrine/Metabolic: Reports: Diabetes, type II, IDDM Oncologic: Reports: Breast - Tobacco Use Tobacco Use Status *Q: Former Tobacco User Used Tobacco, but Quit: Yes Month/Year Tobacco Last Used: 2009 - Caffeine Use Caffeine Use: Reports: Coffee, Soda - Recreational Drug Use Recreational Drug Use: No - Living Situation & Occupation Living situation: Reports: Occupation: Employed ED ROS GENERAL - Review of Systems Review Of Systems: Comprehensive ROS is negative, except as noted in HPI. ED EXAM, GENERAL - Physical Exam Exam Limited By: No Limitations General Appearance: Alert Respiratory/Chest: No Respiratory Distress, Decreased Breath Sounds Cardiovascular: Regular Rate, Rhythm, No Murmur GI/Abdominal: Other (Mild tenderness in the Epigastric area.) #1 Interpretation EKG Date: 12/23/20 Rhythm: Other (Paced Rhythm) Rate (Beats/Min): 69 [place]: Normal P-Wave: Variable (Paced Rhythm) QRS: Normal ST-T: Normal QT: Normal Comparison: No Change Course - Vital Signs Last Recorded V/S: Last Vital Signs Temp 98.0 F 12/23/20 13:20 Pulse 64 12/23/20 14:56 Resp 15 12/23/20 14:56 BP 108/55 L 12/23/20 14:56 Pulse Ox 97 12/23/20 14:56 - Orders/Labs/Meds Labs: Laboratory Tests 12/23/20 12/23/20 12/23/20 Range/Units 13:30 13:30 13:30 WBC 9.1 D (4.0-11.0) K/uL RBC 5.02 (4.50-6.50) M/uL Hgb 14.5 (13.0-18.0) g/dL Hct 44.3 (40.0-54.0) % MCV 88 (76-96) fL MCH 28.9 (27.0-32.0) pg MCHC 32.7 (31.0-35.0) g/dL RDW 14.9 (11.0-16.0) % Plt Count 267 (150-400) K/uL MPV 10.0 (6.0-10.0) fL Neut % (Auto) 75.2 H (45.0-70.0) % Lymph % (Auto) 13.2 L (20.0-40.0) % [place] % (Auto) 6.7 (3.0-10.0) % Eos % (Auto) 4.3 (1.0-5.0) % Baso % (Auto) 0.6 H (0.0-0.5) % Neut # (Auto) 6.83 (2.00-7.50) K/uL Lymph # (Auto) 1.20 L (1.50-4.00) K/uL [place] # (Auto) 0.61 (0.20-0.80) K/uL Eos # (Auto) 0.39 (0.04-0.40) K/uL Baso # (Auto) 0.05 (0.02-0.10) K/uL Sodium 138 (136-145) mmol/L Potassium 5.1 (3.5-5.1) mmol/L Chloride 104 (98-107) mmol/L Carbon Dioxide 23.9 (21.0-32.0) mmol/L Anion Gap 15.2 H (5.0-15.0) mmol/L BUN 21 (8-26) mg/dL Creatinine 1.50 H (0.70-1.30) mg/dL Est Cr Clr Drug Dosing TNP Estimated GFR (MDRD) 46 L (>60) MLS/MIN BUN/Creatinine Ratio 14.0 (6-25) Glucose 183 H D (74-100) mg/dL Calcium 8.8 (8.5-10.1) mg/dL Total Bilirubin 0.6 D (0.0-1.0) mg/dL AST 45 H (15-37) U/L ALT 34 (12-78) U/L Alkaline Phosphatase 75 (46-116) U/L Troponin I < 0.017 (0.000-0.060) ng/mL Total Protein 7.4 (6.4-8.2) g/dL Albumin 3.4 (3.4-5.0) g/dL Globulin 4.0 (2.2-4.2) g/dL Albumin/Globulin Ratio 0.9 (0.8-2.0) Lipase 117 D (73-393) U/L SARS CoV-2 RNA Rapid JONNY 12/23/20 Range/Units 13:35 WBC (4.0-11.0) K/uL RBC (4.50-6.50) M/uL Hgb (13.0-18.0) g/dL Hct (40.0-54.0) % MCV (76-96) fL MCH (27.0-32.0) pg MCHC (31.0-35.0) g/dL RDW (11.0-16.0) % Plt Count (150-400) K/uL MPV (6.0-10.0) fL Neut % (Auto) (45.0-70.0) % Lymph % (Auto) (20.0-40.0) % [place] % (Auto) (3.0-10.0) % Eos % (Auto) (1.0-5.0) % Baso % (Auto) (0.0-0.5) % Neut # (Auto) (2.00-7.50) K/uL Lymph # (Auto) (1.50-4.00) K/uL [place] # (Auto) (0.20-0.80) K/uL Eos # (Auto) (0.04-0.40) K/uL Baso # (Auto) (0.02-0.10) K/uL Sodium (136-145) mmol/L Potassium (3.5-5.1) mmol/L Chloride (98-107) mmol/L Carbon Dioxide (21.0-32.0) mmol/L Anion Gap (5.0-15.0) mmol/L BUN (8-26) mg/dL Creatinine (0.70-1.30) mg/dL Est Cr Clr Drug Dosing Estimated GFR (MDRD) (>60) MLS/MIN BUN/Creatinine Ratio (6-25) Glucose (74-100) mg/dL Calcium (8.5-10.1) mg/dL Total Bilirubin (0.0-1.0) mg/dL AST (15-37) U/L ALT (12-78) U/L Alkaline Phosphatase (46-116) U/L Troponin I (0.000-0.060) ng/mL Total Protein (6.4-8.2) g/dL Albumin (3.4-5.0) g/dL Globulin (2.2-4.2) g/dL Albumin/Globulin Ratio (0.8-2.0) Lipase (73-393) U/L SARS CoV-2 RNA Rapid JONNY Negative Meds: Medications Discontinued Medications Generic Name Dose Route Start Last Admin Trade Name Freq PRN Reason Stop Dose Admin Sodium Chloride 10 ml 12/23/20 13:35 Sodium Chloride 0.9% 10 Ml Syringe FLUSH ASDIRECTED PRN Keep Vein Open Departure - Departure Time of Disposition: 17:00 Disposition: Home, Self-Care 01 Condition: Good Clinical Impression: Gastritis, Acute gastroenteritis - Discharge Information *PRESCRIPTION DRUG MONITORING PROGRAM REVIEWED*: Yes *COPY OF PRESCRIPTION DRUG MONITORING REPORT IN PATIENT ASIYA: Yes Referrals: PCP,None [Primary Care Provider] - Additional Instructions: Discharge home. Take an antacid, [id number] Prilosec 20mg 1 tablet by mouth daily. Follow up with primary provider in the clinic within the next week. Follow up with cardiology. Call or return to the ER if you have any questions or concerns. Sepsis Event Note (ED) - Evaluation Sepsis Screening Result: No Definite Risk
--- NOTE | 2020-12-24 03:15 | ER ---
HPI: A 70-year-old male who comes in by private car with complaints of abdominal pain. He states that it happened this morning. He felt like he got punched in the stomach, pointing to the upper left quadrant. He also feels like he has some discomfort, at times radiating across the lower chest wall he tells me, but he is pointing to the epigastric area. The patient denies any falls or injuries. He has not been running a fever. He has not been sick lately. He states that he has some shortness of breath, but this is chronic with his history of COPD. He denies any symptoms of chest pain or chest tightness upon arriving to the ER. The patient tells me that his got worried and decided that he should be seen for evaluation. OBJECTIVE: GENERAL APPEARANCE: The patient is awake and alert, no obvious distress. A COVID test was done initially, which is negative. VITAL SIGNS: Reviewed. Blood pressure 134/74, O2 sats are 96% on room air. He is afebrile. Pulse of 67. HEENT: Ears, TMs are normal in appearance. Nares are patent. Oral mucous membranes moist. Tonsils are not enlarged or injected. Pharynx not inflamed. NECK: Supple. LUNGS: Reveals reduced air exchange. I do not hear any rales, wheezes, or rhonchi. CARDIAC: Heart sounds distinct. S1, S2 present. No murmurs noted. There is a well-healed midline sternal incision from a previous CABG surgery about 10 years ago. ABDOMEN: Soft, protuberant. There is no tenderness with palpation. The area the patient is pointing to is the epigastric area from the midline to the left side. There is no obvious splenomegaly. Bowel sounds are present and active. SKIN: Warm and dry. LAB AND X-RAY: An EKG shows a paced rhythm. Labs include a CBC which is normal. CMP which is unremarkable. Troponin is normal and a lipase is normal. CT of the abdomen shows severe fatty liver, otherwise no other acute abnormalities and nothing noted in the upper left quadrant. The spleen and pancreas are normal. There are some gallstones. The patient states he has had these for a long time. CT of the chest shows mild nonspecific ground-glass opacity in the right lung, both upper and lower lobes as well as the middle lobe, which also does not correspond with the patient's symptoms. DIAGNOSIS: Abdominal/epigastric pain, strongly suspicious for gastritis. TREATMENT PLAN: I advised the patient to use Prilosec OTC 20 mg daily for about a week. He should utilize a bland diet, and I do want the patient to follow up with his primary care provider, Dr. Barcenas, in roughly a week's time. Follow up sooner of course if the symptoms should get worse. The patient has been asymptomatic since being in our emergency room today. He denies any pain or discomfort and he has no further questions. CRS/MODL /[id number]
--- NOTE | 2020-12-24 08:14 | CT ---
Date of Service: 12/23/20 Clinical Data: Epigastric - lower chest wall pain. SOB. UNENHANCED CHEST CT: Multislice acquisition through the chest without IV contrast was performed. No priors. There are poorly defined ground-glass opacities noted within the right upper lobe, right middle lobe, and right lower lobe. The left lung is clear. No pneumothorax. No pleural effusions. The heart size is normal. There are cardiac pacer wires in place. No pericardial effusion. The ascending aorta is mildly aneurysmal measuring 4.1 cm in diameter. No hilar or mediastinal adenopathy. The patient is status post median sternotomy. There is degenerative disk disease throughout the thoracic spine. IMPRESSION: Ground-glass opacities in right lung suspicious for pneumonia/pneumonitis. [id number] [facility]
--- NOTE | 2020-12-24 08:22 | CT ---
Date of Service: 12/23/20 Clinical Data: Acute Abd pain ULQ. UNENHANCED ABDOMEN CT: Multislice acquisition through the abdomen without IV or oral contrast was performed. Comparison was made to a prior exam dated 06/20/20. There is diffuse fatty infiltration of the liver. No focal hepatic lesions. The gallbladder is normal size. There is hyperdense material in the dependent portion of the gallbladder. These may be numerous small gallstones. Hyperdense bile should also be considered. Gallbladder ultrasound is recommended. No pericholecystic fluid. The spleen appears normal. 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 The pancreas is mildly atrophic, otherwise normal. The right and left adrenals appear normal. There is mild atrophy of both kidneys. No nephrocalcinosis or nephrolithiasis. No hydronephrosis or hydroureter. There is mild perinephric fat stranding. This is probably related to aging. No masses. No abnormal fluid collections. No dilated loops of bowel. No adenopathy. No aortic aneurysm. Patient is status post internal fixation of the L5 and S1 with posterior metal rods and pedicle screws. [id number] [facility]
== END 2020-12-23 15:15 | disposition home or self-care (01) ==
LOC: LB.ED 12:45
DX: R10.13 Epigastric pain (principal); J44.9 Chronic obstructive pulmonary disease, unspecified; Z20.822 Contact with and (suspected) exposure to COVID-19
CPT/HCPCS: 36415; 71250; 74150; 80053; 83690; 84484; 85025; 93005; 99283; 99284-25; U0002

== ENCOUNTER 2021-02-15 16:36 | Emergency (ER) | payer MEDICARE ==
[2021-02-15 17:44] VITALS: BP 171/83; PULSE 72
[2021-02-15] MEDS ORDERED: Ketorolac 30 MG/ML SDV IM ONE (18:34)
[2021-02-15] MEDS ORDERED: Amoxicillin 500 MG Cap PO STA (18:35)
--- NOTE | 2021-02-15 18:51 | EDM.PDOC ---
ED HPI GENERAL MEDICAL PROBLEM - General Chief Complaint: Headache Stated Complaint: HEADACHE, NAUSEA Time Seen by Provider: 02/15/21 16:55 Source of Information: Reports: Patient History Limitations: Reports: No Limitations - History of Present Illness INITIAL COMMENTS - FREE TEXT/NARRATIVE: patient reports mild headache for 2 days - mainly on the left side behind his left eye. No vision problems, no weakness or numbness. No nausea or emesis. Never had this before Also reports mild post nasal drip earlier in the morning. No cough, fever or chills. non smoker. No SOB or CP. No recent head injury Took an ibuprofen earlier today - that helped with his symptoms Onset: Gradual Duration: Day(s): (2) Location: Reports: Head - Related Data Allergies Allergy/AdvReac Type Severity Reaction Status Date / Time No Known Allergies Allergy Verified 02/15/21 18:05 Home Meds: Home Meds Aspirin [Ecotrin EC] 81 mg PO QPM 01/20/17 [History] Losartan Potassium 25 mg PO DAILY 01/20/17 [History] Spironolactone [Aldactone] 12.5 mg PO DAILY 01/20/17 [History] carvediloL [Carvedilol] 12.5 mg PO BID 01/20/17 [History] traZODone 150 mg PO QPM 01/20/17 [History] Albuterol [Ventolin HFA] 1 puff INH Q4H PRN 02/09/18 [History] Magnesium 1 tab PO DAILY 02/09/18 [History] Multivit-Min/Folic/Vit K/Lycop [Men's Daily Formula Tablet] 1 tab PO DAILY 02/09/18 [History] Omeprazole [priLOSEC OTC] 20 mg PO DAILY 02/09/18 [History] Potassium 99 mg PO BID 02/09/18 [History] diphenhydrAMINE HCL [Diphenhydramine HCl] 50 mg PO BEDTIME 02/09/18 [History] Fluticasone/Umeclidin/Vilanter [Trelegy Ellipta 100-62.5-25] 1 each INH DAILY 06/17/20 [History] atorvaSTATin [Lipitor] 80 mg PO BEDTIME 06/17/20 [History] oxyCODONE HCl/Acetaminophen [Endocet 7.5-325 mg Tablet] 1 tab PO Q8H PRN 06/17/20 [History] Acetaminophen [Tylenol Arthritis] 2 tab PO DAILY 01/18/21 [History] Amoxicillin 500 mg PO BID #10 tablet 02/15/21 [Rx] Past Medical History HEENT History: Reports: Hard of Hearing Cardiovascular History: Reports: Bypass, High Cholesterol, Hypertension, [place], Pacemaker, SOB on Exertion Respiratory History: Reports: Asthma, COPD, Pneumonia, Recurrent, SOB Gastrointestinal History: Reports: GERD Genitourinary History: Reports: Renal Calculus, Renal Disease Musculoskeletal History: Reports: Back Pain, Chronic, Fracture, Osteoarthritis Other Musculoskeletal History: R Leg pain, 2 broken wrists, left leg fracture Neurological History: Reports: Other (See Below) Other Neuro History: numb in R forearm into 3-4-5 fingers since back sugery Jun Psychiatric History: Reports: None Endocrine/Metabolic History: Reports: None, Diabetes, Type II, Other (See Below) Other Endocrine/Metabolic History: pre-diabetic Hematologic History: Reports: None Immunologic History: Reports: None Oncologic (Cancer) History: Reports: None Dermatologic History: Reports: Cellulitis - Infectious Disease History Infectious Disease History: Reports: Chicken Pox - Past Surgical History HEENT Surgical History: Reports: Tonsillectomy Cardiovascular Surgical History: Reports: Coronary Artery Bypass, Coronary Artery Stent Respiratory Surgical History: Reports: None GI Surgical History: Reports: Colonoscopy Other GI Surgeries/Procedures: Reason for colonoscopy:Blood in stool-02/09/18 Endocrine Surgical History: Reports: None Other Endocrine Surgeries/Procedures: patient feels possibly a mild form of Diabetes type 2 Neurological Surgical History: Reports: Lumbar Spine, Spinal Fusion Other Neurological Surgeries/Procedures: 2014 Lumbar spinal fusion Musculoskeletal Surgical History: Reports: ORIF Other Musculoskeletal Surgeries/Procedures:: Fixation of R leg Fx, BACK SURGERY 2014 Social & Family History - Family History Family Medical History: No Pertinent Family History Musculoskeletal: Reports: Back pain, Chronic Endocrine/Metabolic: Reports: Diabetes, type II, IDDM Oncologic: Reports: Breast - Tobacco Use Tobacco Use Status *Q: Former Tobacco User Used Tobacco, but Quit: Yes Month/Year Tobacco Last Used: 10/2010 - Caffeine Use Caffeine Use: Reports: Coffee, Soda - Recreational Drug Use Recreational Drug Use: No - Living Situation & Occupation Living situation: Reports: Occupation: Employed ED ROS GENERAL - Review of Systems Review Of Systems: See Below Constitutional: Reports: No Symptoms HEENT: Reports: No Symptoms Respiratory: Reports: No Symptoms Cardiovascular: Reports: No Symptoms GI/Abdominal: Reports: No Symptoms Musculoskeletal: Reports: No Symptoms Skin: Reports: No Symptoms - Physical Exam Exam: See Below Exam Limited By: No Limitations General Appearance: Alert, No Apparent Distress Eye Exam: Bilateral Eye: EOMI, PERRL Ears: Normal External Exam Nose: Normal Inspection, Normal Mucosa Throat/Mouth: Normal Inspection, Normal Lips Head Exam: Atraumatic, Normocephalic Neck: Normal Inspection Respiratory/Chest: No Respiratory Distress, Lungs Clear Cardiovascular: Normal Peripheral Pulses Extremities: Normal Inspection Course - Vital Signs Last Recorded V/S: Last Vital Signs Temp 36.9 C 02/15/21 17:00 Pulse 72 02/15/21 17:00 Resp 18 02/15/21 17:00 BP 171/83 H 02/15/21 17:00 Pulse Ox 97 02/15/21 17:00 - Orders/Labs/Meds Labs: Laboratory Tests 02/15/21 02/15/21 02/15/21 Range/Units 17:19 18:00 18:00 WBC 9.6 (4.0-11.0) K/uL RBC 4.58 (4.50-6.50) M/uL Hgb 13.7 (13.0-18.0) g/dL Hct 41.0 (40.0-54.0) % MCV 90 (76-96) fL MCH 29.9 (27.0-32.0) pg MCHC 33.4 (31.0-35.0) g/dL RDW 14.3 (11.0-16.0) % Plt Count 227 (150-400) K/uL MPV 9.6 (6.0-10.0) fL Sodium 140 (136-145) mmol/L Potassium 4.8 (3.5-5.1) mmol/L Chloride 104 (98-107) mmol/L Carbon Dioxide 25.0 (21.0-32.0) mmol/L Anion Gap 15.8 H (5.0-15.0) mmol/L BUN 18 (8-26) mg/dL Creatinine 1.33 H (0.70-1.30) mg/dL Est Cr Clr Drug Dosing 50.20 mL/min Estimated GFR (MDRD) 53 L (>60) MLS/MIN BUN/Creatinine Ratio 13.5 (6-25) Glucose 152 H (74-100) mg/dL Calcium 9.0 (8.5-10.1) mg/dL SARS CoV-2 RNA Rapid JONNY Negative Meds: Medications Discontinued Medications Generic Name Dose Route Start Last Admin Trade Name [place] PRN Reason Stop Dose Admin Amoxicillin 500 mg 02/15/21 18:35 Amoxicillin 500 Mg Cap PO 02/15/21 18:36 NOW STA Ketorolac Tromethamine 30 mg 02/15/21 18:34 Ketorolac 30 Mg/Ml Sdv IM 02/15/21 18:35 ONETIME ONE - Re-Assessments/Exams Free Text/Narrative Re-Assessment/Exam: 02/15/21 18:47 Covid and strep tests negative labs - no leukocytosis.. Mild elevation in Cr - at his baseline decision to treat for sinuitis with po amoxicillin and follow up with PCP as needed Departure - Departure Time of Disposition: 18:47 Disposition: Home, Self-Care 01 Condition: Good Clinical Impression: Sinusitis, Cluster headache syndrome - Discharge Information *PRESCRIPTION DRUG MONITORING PROGRAM REVIEWED*: Not Applicable *COPY OF PRESCRIPTION DRUG MONITORING REPORT IN PATIENT ASIYA: Not Applicable Prescriptions: Amoxicillin 500 mg PO BID #10 tablet Instructions: Sinus Headache, [id number] Referrals: PCP,None [Primary Care Provider] - Forms: ED Department Discharge Additional Instructions: - take antibiotics as prescribed - Tylenol as needed for headache - follow up with your PCP in 3-7 days if symptoms persisted - return to the ER if symptoms got worse or any concerns Sepsis Event Note (ED) - Evaluation Sepsis Screening Result: No Definite Risk - Focused Exam Vital Signs: Vital Signs Temp Pulse Resp BP Pulse Ox 02/15/21 17:00 36.9 C 72 18 171/83 H 97 - Problem List & Annotations (1) Sinus headache SNOMED Code(s): 2313876 Code(s): R51.9 - HEADACHE, UNSPECIFIED Status: Acute Priority: Low Current Visit: Yes - Problem List Review Problem List Initiated/Reviewed/Updated: Yes - Assessment/Plan Plan: - take antibiotics as prescribed - increase fluids intake - Tylenol as needed for headache - follow up with your PCP in 3-7 days if symptoms persisted - return to the ER if symptoms got worse or any concerns
== END 2021-02-15 19:03 | disposition home or self-care (01) ==
LOC: LB.ED 16:36
DX: G44.009 Cluster headache syndrome, unspecified, not intractable (principal); J32.9 Chronic sinusitis, unspecified; E78.00 Pure hypercholesterolemia, unspecified; I10 Essential (primary) hypertension; I25.2 Old myocardial infarction; J44.9 Chronic obstructive pulmonary disease, unspecified; K21.9 Gastro-esophageal reflux disease without esophagitis; E11.9 Type 2 diabetes mellitus without complications; Z20.822 Contact with and (suspected) exposure to COVID-19; Z95.0 Presence of cardiac pacemaker; Z79.82 Long term (current) use of aspirin; Z79.899 Other long term (current) drug therapy; Z87.891 Personal history of nicotine dependence
CPT/HCPCS: 36415; 80048; 85027; 87430; 99283; 99284; A9270-GY; U0002

== ENCOUNTER 2021-08-22 18:19 | Emergency (ER) | payer MEDICARE ==
[2021-08-22 18:36] VITALS: BP 139/68; PULSE 72
[2021-08-22] MEDS ORDERED: Ketorolac 60 MG/2 ML SDV IM ONE (18:37)
--- NOTE | 2021-08-22 18:41 | EDM.PDOC ---
ED HPI GENERAL MEDICAL PROBLEM - General Chief Complaint: Headache Stated Complaint: headache Time Seen by Provider: 08/22/21 18:30 Source of Information: Reports: Patient, RN Notes Reviewed History Limitations: Reports: No Limitations - History of Present Illness INITIAL COMMENTS - FREE TEXT/NARRATIVE: This patient presents to the emergency department for evaluation of headaches. He states he has had a headache for 4 to 5 days. He has been using Excedrin for this and it gets some better but does not go away completely. He states is all over his head. He denies chest pain, difficulty breathing, abdominal pain, vomiting or diarrhea. He states he feels a little nauseated sometimes and his appetite is decreased. He denies other concerns or complaints. He states he stoddard d frequent headaches when he was an adolescent. He is scheduled for a implanted defibrillator to be placed later this month. Head Pain Score (Numeric/FACES): 3 - Related Data Allergies Allergy/AdvReac Type Severity Reaction Status Date / Time No Known Allergies Allergy Verified 02/15/21 18:05 Home Meds: Home Meds Aspirin [Ecotrin EC] 81 mg PO QPM 01/20/17 [History] Losartan Potassium 25 mg PO DAILY 01/20/17 [History] Spironolactone [Aldactone] 12.5 mg PO DAILY 01/20/17 [History] carvediloL [Carvedilol] 12.5 mg PO BID 01/20/17 [History] traZODone 150 mg PO QPM 01/20/17 [History] Albuterol [Ventolin HFA] 1 puff INH Q4H PRN 02/09/18 [History] Magnesium 1 tab PO DAILY 02/09/18 [History] Multivit-Min/Folic/Vit K/Lycop [Men's Daily Formula Tablet] 1 tab PO DAILY 02/09/18 [History] Omeprazole [priLOSEC OTC] 20 mg PO DAILY 02/09/18 [History] Potassium 99 mg PO BID 02/09/18 [History] diphenhydrAMINE HCL [Diphenhydramine HCl] 50 mg PO BEDTIME 02/09/18 [History] Fluticasone/Umeclidin/Vilanter [Trelegy Ellipta 100-62.5-25] 1 each INH DAILY 06/17/20 [History] atorvaSTATin [Lipitor] 80 mg PO BEDTIME 06/17/20 [History] Acetaminophen [Tylenol Arthritis] 2 tab PO DAILY 01/18/21 [History] Past Medical History HEENT History: Reports: Hard of Hearing Cardiovascular History: Reports: Bypass, High Cholesterol, Hypertension, [place], Pacemaker, SOB on Exertion Respiratory History: Reports: Asthma, COPD, Pneumonia, Recurrent, SOB Gastrointestinal History: Reports: GERD Genitourinary History: Reports: Renal Calculus, Renal Disease Musculoskeletal History: Reports: Back Pain, Chronic, Fracture, Osteoarthritis Other Musculoskeletal History: R Leg pain, 2 broken wrists, left leg fracture Neurological History: Reports: Other (See Below) Other Neuro History: numb in R forearm into 3-4-5 fingers since back sugery Jun Psychiatric History: Reports: None Endocrine/Metabolic History: Reports: None, Diabetes, Type II, Other (See Below) Other Endocrine/Metabolic History: pre-diabetic Hematologic History: Reports: None Immunologic History: Reports: None Oncologic (Cancer) History: Reports: None Dermatologic History: Reports: Cellulitis - Infectious Disease History Infectious Disease History: Reports: Chicken Pox - Past Surgical History HEENT Surgical History: Reports: Tonsillectomy Cardiovascular Surgical History: Reports: Coronary Artery Bypass, Coronary Artery Stent Respiratory Surgical History: Reports: None GI Surgical History: Reports: Colonoscopy Other GI Surgeries/Procedures: Reason for colonoscopy:Blood in stool-02/09/18 Endocrine Surgical History: Reports: None Other Endocrine Surgeries/Procedures: patient feels possibly a mild form of Diabetes type 2 Neurological Surgical History: Reports: Lumbar Spine, Spinal Fusion Other Neurological Surgeries/Procedures: 2014 Lumbar spinal fusion Musculoskeletal Surgical History: Reports: ORIF Other Musculoskeletal Surgeries/Procedures:: Fixation of R leg Fx, BACK SURGERY 2014 Social & Family History - Family History Family Medical History: No Pertinent Family History Musculoskeletal: Reports: Back pain, Chronic Endocrine/Metabolic: Reports: Diabetes, type II, IDDM Oncologic: Reports: Breast - Caffeine Use Caffeine Use: Reports: Coffee, Soda - Living Situation & Occupation Living situation: Reports: Occupation: Employed ED ROS GENERAL - Review of Systems Review Of Systems: Comprehensive ROS is negative, except as noted in HPI. - Physical Exam Exam: See Below Exam Limited By: No Limitations General Appearance: Alert, No Apparent Distress Eye Exam: Bilateral Eye: PERRL Ears: Normal External Exam Nose: Normal Inspection Head Exam: Atraumatic, Normocephalic Neck: Normal Inspection, Full Range of Motion Respiratory/Chest: No Respiratory Distress, Lungs Clear, Normal Breath Sounds, No Accessory Muscle Use Cardiovascular: Regular Rate, Rhythm Neuro Exam (Abbreviated): Alert, Oriented, Normal Cognition, Normal Gait, No Motor/Sensory Deficits, Other (No facial droop noted) Psychiatric: Normal Affect Skin Exam: Warm, Dry, Intact Course - Vital Signs Last Recorded V/S: Last Vital Signs Temp 35.3 C L 08/22/21 18:28 Pulse 72 08/22/21 18:28 Resp 20 08/22/21 18:28 BP 139/68 08/22/21 18:28 Pulse Ox 97 08/22/21 18:28 - Orders/Labs/Meds Meds: Medications Discontinued Medications Generic Name Dose Route Start Last Admin Trade Name [place] PRN Reason Stop Dose Admin Ketorolac Tromethamine 60 mg 08/22/21 18:37 08/22/21 18:43 Ketorolac 60 Mg/2 Ml Sdv IM 08/22/21 18:38 60 mg ONETIME ONE Administration - Re-Assessments/Exams Free Text/Narrative Re-Assessment/Exam: This patient presents to the ER for a headache. I considered a broad differential diagnosis for this patient including tension, migraine, analgesic occipital neuralgia etc. Other less common but serious causes considered include meningitis, encephalitis, subarachnoid bleed, stroke, tumor, etc. Patient has no signs of a serious headache etiology at this point. No advanced imaging is indicated nor is a CT or lumbar puncture required. Patient was given Toradol in the emergency department and had good relief from that. He will be discharged with instructions to follow-up with his primary care provider as needed. The patient was stable at the time of discharge. 08/22/21 18:41 08/22/21 18:42 Departure - Departure Time of Disposition: 19:15 Disposition: Home, Self-Care 01 Condition: Good Clinical Impression: Headache - Discharge Information *PRESCRIPTION DRUG MONITORING PROGRAM REVIEWED*: Not Applicable *COPY OF PRESCRIPTION DRUG MONITORING REPORT IN PATIENT ASIYA: Not Applicable Instructions: General Headache Without Cause, [id number] Referrals: PCP,Unknown [Primary Care Provider] - Forms: ED Department Discharge Sepsis Event Note (ED) - Evaluation Sepsis Screening Result: No Definite Risk - Focused Exam Vital Signs: Vital Signs Temp Temp Pulse Resp BP Pulse Ox 08/22/21 18:28 36.7 C 35.3 C L 72 20 139/68 97
== END 2021-08-22 19:16 | disposition home or self-care (01) ==
LOC: LB.ED 18:19
DX: R51.9 Headache, unspecified (principal); E78.00 Pure hypercholesterolemia, unspecified; I10 Essential (primary) hypertension; J44.9 Chronic obstructive pulmonary disease, unspecified; E11.9 Type 2 diabetes mellitus without complications; I25.2 Old myocardial infarction; K21.9 Gastro-esophageal reflux disease without esophagitis; M19.90 Unspecified osteoarthritis, unspecified site; Z79.899 Other long term (current) drug therapy; Z95.1 Presence of aortocoronary bypass graft; Z95.0 Presence of cardiac pacemaker; Z79.82 Long term (current) use of aspirin
CPT/HCPCS: 96372; 99283; J1885

== ENCOUNTER 2021-11-01 11:37 | Emergency (ER) | payer MEDICARE ==
[2021-11-01] MEDS ORDERED: Aspirin 81 MG Tab.Chew PO ONE (12:23)
[2021-11-01 14:00] VITALS: BP 143/64; PULSE 73
== END 2021-11-01 16:35 | disposition home or self-care (01) ==
LOC: LB.ED 11:37
DX: R07.89 Other chest pain (principal); E78.00 Pure hypercholesterolemia, unspecified; I10 Essential (primary) hypertension; I25.2 Old myocardial infarction; J44.9 Chronic obstructive pulmonary disease, unspecified; K21.9 Gastro-esophageal reflux disease without esophagitis; M19.90 Unspecified osteoarthritis, unspecified site; E11.9 Type 2 diabetes mellitus without complications; Z79.82 Long term (current) use of aspirin; Z79.899 Other long term (current) drug therapy
CPT/HCPCS: 36415; 71045; 71250; 74176; 80053; 83690; 84484; 85025; 85610; 93005; 93010; 99284; 99285-25; A9270-GY

== ENCOUNTER 2022-12-08 16:24 | Emergency (ER) | payer MEDICARE ==
[2022-12-08] MEDS ORDERED: Aspirin 81 MG Tab.Chew PO ONE (16:45)
[2022-12-08] MEDS ORDERED: Nitroglycerin 0.4 MG Tab.SL SL ONE (16:46)
[2022-12-08 18:03] LABS: TROPONIN I HIGH SENSITIVITY 14.1 pg/ml (<=60.4)
[2022-12-09 01:09] VITALS: BP 150/66; PULSE 61
== END 2022-12-08 21:45 | disposition home or self-care (01) ==
LOC: LB.ED 16:24
DX: R07.89 Other chest pain (principal); I25.10 Atherosclerotic heart disease of native coronary artery without angina pectoris; E78.00 Pure hypercholesterolemia, unspecified; I10 Essential (primary) hypertension; I25.2 Old myocardial infarction; J44.9 Chronic obstructive pulmonary disease, unspecified; K21.9 Gastro-esophageal reflux disease without esophagitis; E11.9 Type 2 diabetes mellitus without complications; Z95.1 Presence of aortocoronary bypass graft; Z79.82 Long term (current) use of aspirin; Z79.899 Other long term (current) drug therapy; Z87.891 Personal history of nicotine dependence
CPT/HCPCS: 36415; 71250; 74150; 80053; 83735; 84484; 85025; 85610; 93005; 99285; A9270

== ENCOUNTER 2023-02-25 14:10 | Emergency (ER) | payer MEDICARE ==
[2023-02-25] MEDS ORDERED: Sodium Chloride 0.9% 10 ML Syringe FLUSH PRN (15:13)
[2023-02-25 15:58] LABS: APPEARANCE,URINE CLEAR (CLEAR); BILIRUBIN,URINE SMALL (NEGATIVE); COLOR,URINE YELLOW; GLUCOSE,URINE NEGATIVE (NEGATIVE); KETONES,URINE TRACE mg/dL (NEGATIVE); LEUKOCYTE ESTERASE,URINE NEGATIVE (NEGATIVE); NITRITE,URINE NEGATIVE (NEGATIVE); OCCULT BLOOD,URINE NEGATIVE (NEGATIVE); PH,URINE 5.5 (5.0-8.0); PROTEIN,URINE 30 mg/dL (NEGATIVE); UROBILINOGEN,URINE 0.2 E.U./dL (0.2-1.0)
[2023-02-25 16:04] LABS: HEMATOCRIT 39.9 % (40.0-54.0); HEMOGLOBIN 13.3 g/dL (13.0-18.0); MEAN CORPUSCULAR HEMOGLOBIN 29.8 pg (27.0-32.0); MEAN CORPUSCULAR HGB CONC 33.3 g/dL (31.0-35.0); MEAN PLATELET VOLUME 9.5 fL (6.0-10.0); RED BLOOD CELL COUNT 4.47 M/uL (4.50-6.50); RED CELL DISTRIBUTION WIDTH 13.9 % (11.0-16.0); WHITE BLOOD CELL COUNT,WBC 10.1 K/uL (4.0-11.0)
[2023-02-25 16:05] LABS: HYALINE CASTS,URINE OCCASIONAL /HPF; RBC,URINE 0-5 /HPF; SQUAMOUS EPITHELIAL CELLS,UR OCCASIONAL /HPF; WBC,URINE 0-5 /HPF
[2023-02-25 16:15] LABS: A/G RATIO 1.1 (0.8-2.0); ALANINE AMINOTRANSFERASE,ALT 28 U/L (12-78); ALBUMIN 3.9 g/dL (3.4-5.0); ALKALINE PHOSPHATASE 88 U/L (46-116); ANION GAP 13.8 mmol/L (5.0-15.0); ASPARTATE AMNIOTRANSFERASE,AST 12 U/L (15-37); BILIRUBIN TOTAL 0.4 mg/dL (0.0-1.0); BLOOD UREA NITROGEN,BUN 24 mg/dL (8-26); BUN/CREATININE RATIO 11.6 (6-25); CALCIUM 8.5 mg/dL (8.5-10.1); CARBON DIOXIDE,CO2 23.5 mmol/L (21.0-32.0); CHLORIDE,CL 105 mmol/L (98-107); CREATININE 2.07 mg/dL (0.70-1.30); ESTIMATED GFR 33 mL/min (>60); GLUCOSE RANDOM 117 mg/dL (74-100); POTASSIUM,K 5.3 mmol/L (3.5-5.1); PROTEIN TOTAL,TP 7.3 g/dL (6.4-8.2); SODIUM,NA 137 mmol/L (136-145)
[2023-02-25] MEDS ORDERED: Sodium Chloride 0.9% 1,000 ML IV SCH (16:30)
[2023-02-25 17:49] VITALS: BP 130/60; PULSE 64
== END 2023-02-25 17:48 | disposition home or self-care (01) ==
LOC: LB.ED 14:10
DX: K52.9 Noninfective gastroenteritis and colitis, unspecified (principal); E78.00 Pure hypercholesterolemia, unspecified; I12.9 Hypertensive chronic kidney disease with stage 1 through stage 4 chronic kidney disease, or unspecified chronic kidney disease; E11.22 Type 2 diabetes mellitus with diabetic chronic kidney disease; N18.9 Chronic kidney disease, unspecified; Z95.0 Presence of cardiac pacemaker; Z79.899 Other long term (current) drug therapy; Z79.84 Long term (current) use of oral hypoglycemic drugs
CPT/HCPCS: 36415; 80053; 81001; 85027; 96360; 99284-25; J7030

== ENCOUNTER 2023-04-10 13:12 | Emergency (ER) | payer MEDICARE ==
[2023-04-10 13:47] LABS: BASOPHILS ABSOLUTE AUTO 0.06 K/uL (0.02-0.10); BASOPHILS PERCENT AUTO 0.6 % (0.0-0.5); EOSINOPHILS ABSOLUTE AUTO 0.24 K/uL (0.04-0.40); EOSINOPHILS PERCENT AUTO 2.5 % (1.0-5.0); HEMATOCRIT 41.9 % (40.0-54.0); LYMPHOCYTES ABSOLUTE AUTO 1.19 K/uL (1.50-4.00); LYMPHOCYTES PERCENT AUTO 12.3 % (20.0-40.0); MEAN CORPUSCULAR HEMOGLOBIN 29.5 pg (27.0-32.0); MEAN CORPUSCULAR HGB CONC 33.4 g/dL (31.0-35.0); MEAN CORPUSCULAR VOLUME 88 fL (76-96); MONOCYTES ABSOLUTE AUTO 0.34 K/uL (0.20-0.80); MONOCYTES PERCENT AUTO 3.5 % (3.0-10.0); NEUTROPHILS ABSOLUTE AUTO 7.81 K/uL (2.00-7.50); NEUTROPHILS PERCENT AUTO 81.1 % (45.0-70.0); PLATELET COUNT,PLT 214 K/uL (150-400); RED BLOOD CELL COUNT 4.75 M/uL (4.50-6.50); RED CELL DISTRIBUTION WIDTH 13.6 % (11.0-16.0); WHITE BLOOD CELL COUNT,WBC 9.6 K/uL (4.0-11.0)
[2023-04-10 13:52] LABS: APPEARANCE,URINE CLEAR (CLEAR); BILIRUBIN,URINE SMALL (NEGATIVE); COLOR,URINE YELLOW; GLUCOSE,URINE NEGATIVE (NEGATIVE); KETONES,URINE TRACE mg/dL (NEGATIVE); LEUKOCYTE ESTERASE,URINE NEGATIVE (NEGATIVE); NITRITE,URINE NEGATIVE (NEGATIVE); OCCULT BLOOD,URINE NEGATIVE (NEGATIVE); PROTEIN,URINE 100 mg/dL (NEGATIVE); UROBILINOGEN,URINE 0.2 E.U./dL (0.2-1.0)
[2023-04-10 14:11] LABS: A/G RATIO 1.1 (0.8-2.0); ALBUMIN 3.7 g/dL (3.4-5.0); ANION GAP 9.9 mmol/L (5.0-15.0); BILIRUBIN TOTAL 0.5 mg/dL (0.0-1.0); CALCIUM 8.7 mg/dL (8.5-10.1); CARBON DIOXIDE,CO2 24.1 mmol/L (21.0-32.0); CREATININE 1.73 mg/dL (0.70-1.30); EST CRCL DRUG DOSING (CG) 38.68 mL/min; TROPONIN I HIGH SENSITIVITY 12.4 pg/ml (<=60.4)
[2023-04-10 16:36] LABS: RBC,URINE NOT SEEN /HPF; WBC,URINE 0-5 /HPF
[2023-04-10 17:26] VITALS: PULSE 60
[2023-04-10 17:27] VITALS: BP 139/65
== END 2023-04-10 14:53 | disposition home or self-care (01) ==
LOC: LB.ED 13:12
DX: S39.011A Strain of muscle, fascia and tendon of abdomen, initial encounter (principal); E11.9 Type 2 diabetes mellitus without complications; J45.909 Unspecified asthma, uncomplicated; K21.9 Gastro-esophageal reflux disease without esophagitis; J44.9 Chronic obstructive pulmonary disease, unspecified; Z79.82 Long term (current) use of aspirin; Z79.899 Other long term (current) drug therapy; Z79.84 Long term (current) use of oral hypoglycemic drugs; Z87.891 Personal history of nicotine dependence
CPT/HCPCS: 36415; 71045; 80053; 81001; 83690; 84484; 85025; 93005; 93010; 99283; 99284

== ENCOUNTER 2023-04-15 13:04 | Emergency (ER) | payer MEDICARE ==
[2023-04-15 13:13] VITALS: BP 119/68; PULSE 83
[2023-04-15] MEDS ORDERED: Ketorolac 30 MG/ML SDV IM ONE (13:38)
[2023-04-15] MEDS ORDERED: Orphenadrine 60 MG/2 ML Inj IM ONE (15:36)
[2023-04-15] MEDS ORDERED: Orphenadrine 60 MG/2 ML Inj ONE (17:09)
[2023-04-15] MEDS ORDERED: Cyclobenzaprine 10 MG Tab ONE (18:00)
== END 2023-04-15 18:01 | disposition home or self-care (01) ==
LOC: LB.ED 13:04
DX: M54.50 Low back pain, unspecified (principal); E78.00 Pure hypercholesterolemia, unspecified; I10 Essential (primary) hypertension; I25.2 Old myocardial infarction; J45.909 Unspecified asthma, uncomplicated; J44.9 Chronic obstructive pulmonary disease, unspecified; E11.9 Type 2 diabetes mellitus without complications; Z95.1 Presence of aortocoronary bypass graft; Z79.82 Long term (current) use of aspirin; Z79.899 Other long term (current) drug therapy; Z79.84 Long term (current) use of oral hypoglycemic drugs; Z87.891 Personal history of nicotine dependence
CPT/HCPCS: 96372; 99283; A9270-GY; J1885; J2360

== ENCOUNTER 2023-06-11 16:40 | Emergency (ER) | payer MEDICARE ==
[2023-06-11] MEDS ORDERED: Sodium Chloride 0.9% 10 ML Syringe FLUSH PRN (16:48)
[2023-06-11 17:06] LABS: BASOPHILS ABSOLUTE AUTO 0.05 K/uL (0.02-0.10); BASOPHILS PERCENT AUTO 0.5 % (0.0-0.5); EOSINOPHILS ABSOLUTE AUTO 0.52 K/uL (0.04-0.40); EOSINOPHILS PERCENT AUTO 5.6 % (1.0-5.0); HEMATOCRIT 40.8 % (40.0-54.0); HEMOGLOBIN 13.5 g/dL (13.0-18.0); LYMPHOCYTES ABSOLUTE AUTO 1.99 K/uL (1.50-4.00); LYMPHOCYTES PERCENT AUTO 21.3 % (20.0-40.0); MEAN CORPUSCULAR HEMOGLOBIN 29.2 pg (27.0-32.0); MEAN CORPUSCULAR HGB CONC 33.1 g/dL (31.0-35.0); MEAN CORPUSCULAR VOLUME 88 fL (76-96); MEAN PLATELET VOLUME 9.5 fL (6.0-10.0); MONOCYTES ABSOLUTE AUTO 0.72 K/uL (0.20-0.80); MONOCYTES PERCENT AUTO 7.7 % (3.0-10.0); NEUTROPHILS ABSOLUTE AUTO 6.07 K/uL (2.00-7.50); NEUTROPHILS PERCENT AUTO 64.9 % (45.0-70.0); PLATELET COUNT,PLT 200 K/uL (150-400); RED BLOOD CELL COUNT 4.62 M/uL (4.50-6.50); RED CELL DISTRIBUTION WIDTH 14.3 % (11.0-16.0); WHITE BLOOD CELL COUNT,WBC 9.4 K/uL (4.0-11.0)
[2023-06-11] MEDS: hydrOXYzine HCl 25 MG Tab PO ONE (17:14)
[2023-06-11] MEDS: Magnesium Oxide 400 MG Tab PO ONE (17:29)
[2023-06-11 17:31] LABS: A/G RATIO 1.1 (0.8-2.0); ALBUMIN 3.4 g/dL (3.4-5.0); ANION GAP 18.2 mmol/L (5.0-15.0); BILIRUBIN TOTAL 0.3 mg/dL (0.0-1.0); BUN/CREATININE RATIO 12.2 (6-25); CALCIUM 8.6 mg/dL (8.5-10.1); CARBON DIOXIDE,CO2 21.5 mmol/L (21.0-32.0); CREATININE 1.48 mg/dL (0.70-1.30); EST CRCL DRUG DOSING (CG) 42.36 mL/min; POTASSIUM,K 4.7 mmol/L (3.5-5.1); PROTEIN TOTAL,TP 6.5 g/dL (6.4-8.2); TROPONIN I HIGH SENSITIVITY 12.8 pg/ml (<=60.4)
[2023-06-11] MEDS: Furosemide 40 MG/4 ML VIAL ONE (17:48)
[2023-06-11] MEDS: Furosemide 40 MG/4 ML VIAL IVPUSH ONE (17:48)
[2023-06-11 18:41] VITALS: BP 116/50; PULSE 62
== END 2023-06-11 18:25 | disposition home or self-care (01) ==
LOC: LB.ED 16:40 → SUPCPDRO 16:40 → LB.ED 18:25
DX: R00.2 Palpitations (principal); E83.42 Hypomagnesemia; R79.89 Other specified abnormal findings of blood chemistry; J45.909 Unspecified asthma, uncomplicated; K21.9 Gastro-esophageal reflux disease without esophagitis; J44.9 Chronic obstructive pulmonary disease, unspecified; E11.9 Type 2 diabetes mellitus without complications; Z79.82 Long term (current) use of aspirin; Z79.899 Other long term (current) drug therapy
CPT/HCPCS: 36415; 71045; 80053; 83735; 83880; 84484; 85025; 93005; 96374; 99285; A9270; J1940

== ENCOUNTER 2023-10-02 23:20 | Emergency (ER) | payer MEDICARE ==
[2023-10-02 23:39] VITALS: BP 154/54; PULSE 80
[2023-10-02] MEDS: Furosemide 20 MG Tab PO ONE (23:52)
== END 2023-10-03 | disposition home or self-care (01) ==
LOC: LB.ED 23:20
DX: R60.0 Localized edema (principal); I10 Essential (primary) hypertension; J44.9 Chronic obstructive pulmonary disease, unspecified; I25.2 Old myocardial infarction; E11.9 Type 2 diabetes mellitus without complications; K21.9 Gastro-esophageal reflux disease without esophagitis; Z95.1 Presence of aortocoronary bypass graft; Z95.5 Presence of coronary angioplasty implant and graft; Z79.82 Long term (current) use of aspirin; Z79.899 Other long term (current) drug therapy
CPT/HCPCS: 99283; A9270-GY

== ENCOUNTER 2024-05-15 22:07 | Emergency (ER) | payer MEDICARE ==
[2024-05-15 23:32] VITALS: BP 146/68; PULSE 63
== END 2024-05-15 23:35 | disposition home or self-care (01) ==
LOC: LB.ED 22:07
DX: M79.89 Other specified soft tissue disorders (principal); I10 Essential (primary) hypertension; I25.2 Old myocardial infarction; J44.9 Chronic obstructive pulmonary disease, unspecified; E78.00 Pure hypercholesterolemia, unspecified; K21.9 Gastro-esophageal reflux disease without esophagitis; E11.9 Type 2 diabetes mellitus without complications; Z95.0 Presence of cardiac pacemaker; Z95.5 Presence of coronary angioplasty implant and graft; Z95.1 Presence of aortocoronary bypass graft; Z79.84 Long term (current) use of oral hypoglycemic drugs; Z79.51 Long term (current) use of inhaled steroids; Z79.82 Long term (current) use of aspirin; Z79.899 Other long term (current) drug therapy; Z79.1 Long term (current) use of non-steroidal anti-inflammatories (NSAID)
CPT/HCPCS: 36415; 85379; 99283

== ENCOUNTER 2024-09-06 12:54 | Emergency (ER) | payer MEDICARE ==
[2024-09-06 13:55] LABS: BASOPHILS ABSOLUTE AUTO 0.05 K/uL (0.02-0.10); BASOPHILS PERCENT AUTO 0.7 % (0.0-0.5); EOSINOPHILS ABSOLUTE AUTO 0.33 K/uL (0.04-0.40); EOSINOPHILS PERCENT AUTO 4.4 % (1.0-5.0); HEMATOCRIT 38.5 % (40.0-54.0); HEMOGLOBIN 12.8 g/dL (13.0-18.0); LYMPHOCYTES ABSOLUTE AUTO 1.38 K/uL (1.50-4.00); LYMPHOCYTES PERCENT AUTO 18.5 % (20.0-40.0); MEAN CORPUSCULAR HEMOGLOBIN 30.3 pg (27.0-32.0); MEAN CORPUSCULAR HGB CONC 33.2 g/dL (31.0-35.0); MEAN CORPUSCULAR VOLUME 91 fL (76-96); MEAN PLATELET VOLUME 9.7 fL (6.0-10.0); MONOCYTES ABSOLUTE AUTO 0.44 K/uL (0.20-0.80); MONOCYTES PERCENT AUTO 5.9 % (3.0-10.0); NEUTROPHILS ABSOLUTE AUTO 5.26 K/uL (2.00-7.50); NEUTROPHILS PERCENT AUTO 70.5 % (45.0-70.0); PLATELET COUNT,PLT 178 K/uL (150-400); RED BLOOD CELL COUNT 4.23 M/uL (4.50-6.50); RED CELL DISTRIBUTION WIDTH 13.8 % (11.0-16.0); WHITE BLOOD CELL COUNT,WBC 7.5 K/uL (4.0-11.0)
[2024-09-06 14:18] LABS: A/G RATIO 1.2 (0.8-2.0); ALANINE AMINOTRANSFERASE,ALT 20 U/L (12-78); ALBUMIN 3.3 g/dL (3.4-5.0); ALKALINE PHOSPHATASE 61 U/L (46-116); ANION GAP 13.7 mmol/L (5.0-15.0); ASPARTATE AMNIOTRANSFERASE,AST 12 U/L (15-37); BILIRUBIN TOTAL 0.5 mg/dL (0.0-1.0); BLOOD UREA NITROGEN,BUN 15 mg/dL (8-26); BUN/CREATININE RATIO 9.3 (6-25); CALCIUM 8.3 mg/dL (8.5-10.1); CARBON DIOXIDE,CO2 23.8 mmol/L (21.0-32.0); CHLORIDE,CL 105 mmol/L (98-107); CREATININE 1.61 mg/dL (0.70-1.30); ESTIMATED GFR 44 mL/min (>60); GLUCOSE RANDOM 187 mg/dL (74-100); POTASSIUM,K 4.5 mmol/L (3.5-5.1); PROTEIN TOTAL,TP 6.1 g/dL (6.4-8.2); SODIUM,NA 138 mmol/L (136-145); TROPONIN I HIGH SENSITIVITY 15.7 pg/ml (<=60.4)
[2024-09-06 14:30] LABS: PROTHROMBIN TIME 10.8 sec (9.0-11.5)
[2024-09-06 21:33] VITALS: PULSE 60
[2024-09-06 21:41] VITALS: BP 179/71
== END 2024-09-06 17:47 | disposition home or self-care (01) ==
LOC: LB.ED 12:54
DX: R07.89 Other chest pain (principal); I10 Essential (primary) hypertension; E78.00 Pure hypercholesterolemia, unspecified; J44.9 Chronic obstructive pulmonary disease, unspecified; I25.2 Old myocardial infarction; E11.9 Type 2 diabetes mellitus without complications; Z95.1 Presence of aortocoronary bypass graft; Z95.5 Presence of coronary angioplasty implant and graft; Z79.1 Long term (current) use of non-steroidal anti-inflammatories (NSAID); Z79.51 Long term (current) use of inhaled steroids; Z79.84 Long term (current) use of oral hypoglycemic drugs; Z79.82 Long term (current) use of aspirin; Z79.899 Other long term (current) drug therapy
CPT/HCPCS: 36415; 71045; 80053; 84484; 85025; 85379; 85610; 85730; 93005; 99285

== ENCOUNTER 2024-10-09 08:10 | Emergency (ER) | payer MEDICARE ==
[2024-10-09] MEDS: Acetaminophen 500 MG Tab PO ONE (08:51)
[2024-10-09 09:16] LABS: INFLUENZA A NAA NEGATIVE (NEGATIVE); INFLUENZA B NAA NEGATIVE (NEGATIVE); RESPIRATORY SYNCYTIAL VIR NAA NEGATIVE (NEGATIVE)
[2024-10-09 09:17] LABS: BASOPHILS ABSOLUTE AUTO 0.06 K/uL (0.02-0.10); BASOPHILS PERCENT AUTO 0.6 % (0.0-0.5); EOSINOPHILS ABSOLUTE AUTO 0.54 K/uL (0.04-0.40); EOSINOPHILS PERCENT AUTO 5.5 % (1.0-5.0); LYMPHOCYTES ABSOLUTE AUTO 1.67 K/uL (1.50-4.00); LYMPHOCYTES PERCENT AUTO 17.1 % (20.0-40.0); MEAN CORPUSCULAR HEMOGLOBIN 29.9 pg (27.0-32.0); MEAN CORPUSCULAR HGB CONC 33.3 g/dL (31.0-35.0); MEAN CORPUSCULAR VOLUME 90 fL (76-96); MEAN PLATELET VOLUME 9.8 fL (6.0-10.0); MONOCYTES ABSOLUTE AUTO 0.48 K/uL (0.20-0.80); MONOCYTES PERCENT AUTO 4.9 % (3.0-10.0); NEUTROPHILS PERCENT AUTO 71.9 % (45.0-70.0); PLATELET COUNT,PLT 217 K/uL (150-400); RED BLOOD CELL COUNT 4.68 M/uL (4.50-6.50); WHITE BLOOD CELL COUNT,WBC 9.8 K/uL (4.0-11.0)
[2024-10-09 09:18] LABS: CORONAVIRUS COVID-19 NAA NEGATIVE (NEGATIVE)
[2024-10-09 09:38] LABS: A/G RATIO 1.1 (0.8-2.0); ALBUMIN 3.7 g/dL (3.4-5.0); ANION GAP 16.3 mmol/L (5.0-15.0); BILIRUBIN TOTAL 0.5 mg/dL (0.0-1.0); BUN/CREATININE RATIO 11.5 (6-25); CARBON DIOXIDE,CO2 20.8 mmol/L (21.0-32.0); CREATININE 1.57 mg/dL (0.70-1.30); EST CRCL DRUG DOSING (CG) 40.65 mL/min; POTASSIUM,K 4.1 mmol/L (3.5-5.1); PROTEIN TOTAL,TP 7.1 g/dL (6.4-8.2); TROPONIN I HIGH SENSITIVITY 17.3 pg/ml (<=60.4)
[2024-10-09] MEDS: Sodium Chloride 0.9% 1,000 ML IV ONE (10:37)
[2024-10-09 11:09] LABS: APPEARANCE,URINE CLEAR (CLEAR); BILIRUBIN,URINE NEGATIVE (NEGATIVE); COLOR,URINE YELLOW; GLUCOSE,URINE NEGATIVE (NEGATIVE); KETONES,URINE NEGATIVE (NEGATIVE); LEUKOCYTE ESTERASE,URINE TRACE (NEGATIVE); NITRITE,URINE NEGATIVE (NEGATIVE); PH,URINE 5.5 (5.0-8.0); PROTEIN,URINE 100 mg/dL (NEGATIVE); UROBILINOGEN,URINE 0.2 E.U./dL (0.2-1.0)
[2024-10-09 11:10] LABS: OCCULT BLOOD,URINE NEGATIVE (NEGATIVE); RBC,URINE 0-5 /HPF; WBC,URINE 0-5 /HPF
[2024-10-09 11:12] LABS: BASE EXCESS VENOUS -5.7 mm/L (-2-3); PCO2 VENOUS 36.2 mm/Hg (41-51); PH,VENOUS 7.35 (7.31-7.41)
[2024-10-09 11:29] VITALS: BP 155/58; PULSE 67
== END 2024-10-09 11:35 | disposition home or self-care (01) ==
LOC: LB.ED 08:10
DX: B34.9 Viral infection, unspecified (principal); I10 Essential (primary) hypertension; I48.91 Unspecified atrial fibrillation; I25.2 Old myocardial infarction; J44.9 Chronic obstructive pulmonary disease, unspecified; K21.9 Gastro-esophageal reflux disease without esophagitis; E11.9 Type 2 diabetes mellitus without complications; E66.9 Obesity, unspecified; Z95.1 Presence of aortocoronary bypass graft; Z87.891 Personal history of nicotine dependence; Z79.899 Other long term (current) drug therapy; Z79.82 Long term (current) use of aspirin; Z79.84 Long term (current) use of oral hypoglycemic drugs
CPT/HCPCS: 0241U; 36415; 71045; 80053; 81001; 82009; 82803; 84484; 85025; 87086; 93005; 96360; 99285-25; A9270-GY; J7030

== ENCOUNTER 2025-02-09 08:53 | Emergency (ER) | payer MEDICARE ==
[2025-02-09] MEDS: Albuterol/Ipratropium 3.0-0.5 MG/3 ML Neb Soln NEB ONE (09:27)
[2025-02-09] MEDS: Aspirin 81 MG Tab.Chew PO ONE (09:30)
[2025-02-09 10:16] LABS: ANION GAP 1.7 mmol/L (5.0-15.0); BLOOD UREA NITROGEN,BUN 16 mg/dL (8-26); BUN/CREATININE RATIO 8.3 (6-25); CALCIUM 9.1 mg/dL (8.5-10.1); CARBON DIOXIDE,CO2 26.3 mmol/L (21.0-32.0); CHLORIDE,CL 109 mmol/L (98-107); CREATININE 1.92 mg/dL (0.70-1.30); ESTIMATED GFR 36 mL/min (>60); GLUCOSE RANDOM 192 mg/dL (74-100); SODIUM,NA 133 mmol/L (136-145)
[2025-02-09 13:46] VITALS: BP 170/67
[2025-02-09 14:06] VITALS: PULSE 60
== END 2025-02-09 11:00 | disposition home or self-care (01) ==
LOC: SUPCPDRO 08:53 → LB.ED 08:53
DX: J44.1 Chronic obstructive pulmonary disease with (acute) exacerbation (principal); I25.2 Old myocardial infarction; I10 Essential (primary) hypertension; E78.00 Pure hypercholesterolemia, unspecified; K21.9 Gastro-esophageal reflux disease without esophagitis; M19.90 Unspecified osteoarthritis, unspecified site; E11.9 Type 2 diabetes mellitus without complications; Z95.5 Presence of coronary angioplasty implant and graft; Z79.82 Long term (current) use of aspirin; Z79.51 Long term (current) use of inhaled steroids; Z79.84 Long term (current) use of oral hypoglycemic drugs; Z79.899 Other long term (current) drug therapy
CPT/HCPCS: 36415; 80048; 84484; 93005; 94640; 99285; A9270; 93010; 99284

== ENCOUNTER 2025-06-18 13:17 | Emergency (ER) | payer MEDICARE ==
[2025-06-18] MEDS ORDERED: Sodium Chloride 0.9% 10 ML Syringe FLUSH PRN (13:33)
[2025-06-18] MEDS: Nitroglycerin 0.4 MG Tab.SL SL ONE (13:47)
[2025-06-18 13:53] LABS: BASOPHILS ABSOLUTE AUTO 0.08 K/uL (0.02-0.10); BASOPHILS PERCENT AUTO 0.9 % (0.0-0.5); EOSINOPHILS ABSOLUTE AUTO 0.38 K/uL (0.04-0.40); EOSINOPHILS PERCENT AUTO 4.4 % (1.0-5.0); LYMPHOCYTES ABSOLUTE AUTO 1.42 K/uL (1.50-4.00); LYMPHOCYTES PERCENT AUTO 16.6 % (20.0-40.0); MEAN PLATELET VOLUME 9.3 fL (6.0-10.0); MONOCYTES ABSOLUTE AUTO 0.60 K/uL (0.20-0.80); MONOCYTES PERCENT AUTO 7.0 % (3.0-10.0); NEUTROPHILS ABSOLUTE AUTO 6.07 K/uL (2.00-7.50); NEUTROPHILS PERCENT AUTO 71.1 % (45.0-70.0); PLATELET COUNT,PLT 204 K/uL (150-400); RED BLOOD CELL COUNT 4.51 M/uL (4.50-6.50); RED CELL DISTRIBUTION WIDTH 14.2 % (11.0-16.0); WHITE BLOOD CELL COUNT,WBC 8.6 K/uL (4.0-11.0)
[2025-06-18 14:22] LABS: A/G RATIO 1.1 (0.8-2.0); ALANINE AMINOTRANSFERASE,ALT 22.0 U/L (12-78); ASPARTATE AMNIOTRANSFERASE,AST 21.0 U/L (15-37); BILIRUBIN TOTAL 0.4 mg/dL (0.0-1.0); BLOOD UREA NITROGEN,BUN 16.0 mg/dL (8-26); CARBON DIOXIDE,CO2 21.2 mmol/L (21.0-32.0); CHLORIDE,CL 110.0 mmol/L (98-107); CREATININE 1.5 mg/dL (0.70-1.30); EST CRCL DRUG DOSING (CG) 41.9 mL/min; ESTIMATED GFR 48.0 mL/min (>60); GLUCOSE RANDOM 162.0 mg/dL (74-100); POTASSIUM,K 4.3 mmol/L (3.5-5.1); PROTEIN TOTAL,TP 6.7 g/dL (6.4-8.2); SODIUM,NA 142.0 mmol/L (136-145); TROPONIN I HIGH SENSITIVITY 21.6 pg/ml (<=60.4)
[2025-06-18 17:51] VITALS: BP 170/74; PULSE 64
== END 2025-06-18 17:23 | disposition home or self-care (01) ==
LOC: LB.ED 13:17
DX: R07.89 Other chest pain (principal); I10 Essential (primary) hypertension; I25.2 Old myocardial infarction; E11.9 Type 2 diabetes mellitus without complications; E66.9 Obesity, unspecified; E78.00 Pure hypercholesterolemia, unspecified; J44.89 Other specified chronic obstructive pulmonary disease; Z79.899 Other long term (current) drug therapy; Z79.82 Long term (current) use of aspirin; Z68.34 Body mass index [BMI] 34.0-34.9, adult
CPT/HCPCS: 36415; 71045; 80053; 83690; 83735; 83880; 84484; 85025; 85379; 85730; 93005; 93010; 99284; 99285; A9270-GY

== ENCOUNTER 2025-08-08 12:06 | Emergency (ER) | payer MEDICARE ==
[2025-08-08] MEDS: Sodium Chloride 0.9% 10 ML Syringe FLUSH PRN (12:40)
[2025-08-08 12:45] LABS: BASOPHILS ABSOLUTE AUTO 0.05 K/uL (0.02-0.10); BASOPHILS PERCENT AUTO 0.6 % (0.0-0.5); EOSINOPHILS ABSOLUTE AUTO 0.35 K/uL (0.04-0.40); EOSINOPHILS PERCENT AUTO 4.2 % (1.0-5.0); LYMPHOCYTES ABSOLUTE AUTO 1.46 K/uL (1.50-4.00); LYMPHOCYTES PERCENT AUTO 17.5 % (20.0-40.0); MEAN PLATELET VOLUME 9.4 fL (6.0-10.0); MONOCYTES ABSOLUTE AUTO 0.61 K/uL (0.20-0.80); MONOCYTES PERCENT AUTO 7.3 % (3.0-10.0); NEUTROPHILS ABSOLUTE AUTO 5.87 K/uL (2.00-7.50); NEUTROPHILS PERCENT AUTO 70.4 % (45.0-70.0); PLATELET COUNT,PLT 168 K/uL (150-400); RED BLOOD CELL COUNT 4.19 M/uL (4.50-6.50); RED CELL DISTRIBUTION WIDTH 13.3 % (11.0-16.0); WHITE BLOOD CELL COUNT,WBC 8.3 K/uL (4.0-11.0)
[2025-08-08 13:09] LABS: A/G RATIO 1.1 (0.8-2.0); ALANINE AMINOTRANSFERASE,ALT 17.0 U/L (12-78); ASPARTATE AMNIOTRANSFERASE,AST 10.0 U/L (15-37); BILIRUBIN TOTAL 0.4 mg/dL (0.0-1.0); BLOOD UREA NITROGEN,BUN 18.0 mg/dL (8-26); CARBON DIOXIDE,CO2 21.0 mmol/L (21.0-32.0); CHLORIDE,CL 111.0 mmol/L (98-107); CREATININE 1.62 mg/dL (0.70-1.30); EST CRCL DRUG DOSING (CG) 37.53 mL/min; ESTIMATED GFR 44.0 mL/min (>60); GLUCOSE RANDOM 185.0 mg/dL (74-100); POTASSIUM,K 4.0 mmol/L (3.5-5.1); PROTEIN TOTAL,TP 6.3 g/dL (6.4-8.2); SODIUM,NA 145.0 mmol/L (136-145); TROPONIN I HIGH SENSITIVITY 20.9 pg/ml (<=60.4)
[2025-08-08 17:40] VITALS: BP 184/71; PULSE 60
== END 2025-08-08 14:55 | disposition home or self-care (01) ==
LOC: LB.ED 12:06
DX: R07.9 Chest pain, unspecified (principal); I10 Essential (primary) hypertension; Z95.1 Presence of aortocoronary bypass graft; J44.9 Chronic obstructive pulmonary disease, unspecified; Z79.899 Other long term (current) drug therapy; Z88.6 Allergy status to analgesic agent; Z88.8 Allergy status to other drugs, medicaments and biological substances
CPT/HCPCS: 36415; 80053; 83690; 84484; 85025; 85379; 99285; A9270-GY